=== PATIENT | female | born 1955 | race Caucasian/White ===

== ENCOUNTER 2019-12-03 08:08 | Outpatient (CLI) | payer MEDICARE, SELFPAY ==
--- NOTE | ~2019-12-03 | MM_ITS ---
EXAMINATION: MM screening [facility] BI w sri HISTORY: Screening mammogram TECHNIQUE: Craniocaudal and mediolateral oblique 3-D tomosynthesis images were obtained and synthetic 2-D images were generated. CAD analysis was submitted and interpreted. COMPARISON: 11/29/2018, 10/02/2017, 09/30/2016 bilateral digital screening mammogram examinations BREAST PARENCHYMAL COMPOSITION: There are scattered areas of fibroglandular density. FINDINGS: Stable mild fibroglandular asymmetry and scattered benign calcifications. There is no evide nce of suspicious mass, calcification, or architectural distortion to suggest malignancy in either br east. There has been no suspicious interval change. IMPRESSION: 1. No mammographic evidence of malignancy. 2. Recommend routine screening mammography in one year. BI-RADS Category 2: Benign finding(s). Reviewed, dictated and finalized at location A. MANAGEMENT SPECIALIST
== END 2019-12-03 08:09 | disposition home or self-care (01) ==
LOC: ANHIMG 08:18
PROVIDERS: PCP Family Medicine; Visit Provider Family Medicine
DX: Z12.31 Encounter for screening mammogram for malignant neoplasm of breast (principal)
CPT/HCPCS: 77063; 77067

== ENCOUNTER → 2019-12-09 08:21 | Outpatient (REF) | payer MEDICARE, SELFPAY | LOC: ANHLAB 08:21 | PROVIDERS: PCP Family Medicine; Visit Provider Nurse Practitioner | DX: C44.519 Basal cell carcinoma of skin of other part of trunk (principal) | CPT/HCPCS: 88304; 88305; 88331 ==

== ENCOUNTER 2020-01-22 07:56 | Outpatient (CLI) | payer MEDICARE, SELFPAY ==
--- NOTE | ~2020-01-22 | DEXA_ITS ---
Bone Density Report Name: Suyapa Garcia Age: 64 Sex: Female Ethnicity: White Date of : 1955 Indication: postmenopausal; height loss; prior fracture; Referring Provider: Mag Hobson Study: Bone densitometry was performed. Exam Date: January 22, 2020 Accession number: [id number] Bone Density: Region BMD T-score Z-score Classification AP Spine (L1-L4) 1.269 2.0 3.9 Normal World Health Organization criteria for BMD impression classify patients as: Normal (T-score at or above -1.0), Osteopenia (T-score between -1.0 and -2.5), or Osteoporosis (T-score at or below -2.5). Previous Exams: Region Exam Age BMD T-score BMD Change BMD Change Date g/cm2 vs Baseline vs Previous AP Spine(L1-L4) 01/22/2020 64 1.269 2.0 0.065(5.4%)# 0.071(5.9%)# 10/12/2012 57 1.198 1.4 -0.006(-0.5%)# 0.107(9.8%)# 12/22/2008 53 1.090 0.4 -0.114(-9.4%)* 0.060(5.8%)* 03/03/2005 49 1.031 -0.1 -0.173(-14.4%) -0.173(-14.4%) 04/05/2002 46 1.204 1.4 *Denotes significance at 95% confidence level, LSC for AP Spine = 0.022 g/cm2 Clinical Information Provided by Patient: Has had a low trauma fracture Has used the following medications: Vitamin D, Calcium Patient maximum height was 67 Menopause Age: 48 Onset of menses at age 10 Number of children 2 Impression: The patient has normal bone mass. The patient has risk factors, including: previous fracture. No significant bone loss was observed. Discussion: LOW RISK OF FRACTURE; BONE DENSITY IS WELL ABOVE THE MINIMUM DESIRABLE LEVEL AND ABOVE AVERAGE FOR AGE AND SEX AT ALL SKELETAL SITES TESTED. This person's bone density is above expected limits for age and sex. This is rarely clinically significant, but should be pursued if there are significant musculoskeletal complaints. The patient should follow a healthful lifestyle (good nutrition with adequate calcium and vitamin D, and appropriate weight-bearing exercise). Follow-Up: Consider repeating this study in 5 years or sooner if there is some new clinical indication. Reported by: MIGUEL on 01/22/2020 8:49:00 AM. Reviewed, dictated and finalized at location Nya RUCKER
== END 2020-01-22 07:57 | disposition home or self-care (01) ==
PROVIDERS: PCP Family Medicine; Visit Provider Physician Assistant
DX: Z78.0 Asymptomatic menopausal state (principal)
CPT/HCPCS: 77080

== ENCOUNTER 2020-08-06 14:15 | Emergency (ER) | payer MEDICARE, SELFPAY ==
[2020-08-06] VITALS (13 sets, daily range): BP systolic 147–185; BP diastolic 56–69; PULSE 62–78; RESP 13–22; TEMP 36.7; O2SAT 99–100
--- NOTE | ~2020-08-06 | XR_ITS ---
EXAMINATION: XR chest 2V DATE: 08/06/2020 14:56 INDICATION: Chest pain. TECHNIQUE: Frontal and lateral views of the chest were obtained. COMPARISON: None. FINDINGS: There is mild scarring at the lung apices. No pleural effusion or pneumothorax. The heart s ize is normal. There is a 4.8 cm sclerotic lesion in proximal right humerus in a pattern of chondroid matrix. IMPRESSION: 1. Mild scarring at the lung apices. 2. Sclerotic lesion in proximal right humerus. In the absence of known malignancy, this finding is li chilo an enchondroma or osteonecrosis. Reviewed, dictated and finalized at location A. IMPRESSION: 1. Mild scarring at the lung apices. 2. Sclerotic lesion in proximal right humerus. In the absence of known malignan cy, this finding is likely an enchondroma or osteonecrosis.
--- NOTE | 2020-08-06 14:18 | ECG_ITS ---
Measurements Intervals [place] Rate: 79 P: 63 DE: 158 QRS: 38 QRSD: 92 T: 71 QT: 371 QTc: 426 Interpretive Statements SINUS RHYTHM BASELINE ARTIFACT- I, III NORMAL ECG Electronically Signed On 08-06-2020 16:49:56 CDT by Jose Garcia D.O.
--- NOTE | 2020-08-06 14:51 | ED.CHESTPAIN ---
HPI - Chest Pain General Chief Complaint: Chest Pain Stated Complaint: CP Time Seen by Provider: 08/06/20 14:28 Source: RN notes reviewed History of Present Illness HPI narrative: Patient presents emergency department from home for chest pain. Patient states pain is located the midsternal chest and does not radiate. States the pain is worse with standing up and better with laying down. The pain is described as sharp and stabbing and does not radiate. She states she did have some congestion this morning with coughing. Denies any fevers or chills shortness of breath abdominal pain nausea vomiting or any other symptoms. The patient states she did take 6 81 mg aspirins and 3 324 mg aspirins since 1030 this morning for the pain. Patient states she was at the gym yesterday and was doing rows Related Data Home Medications Medication Instructions Recorded Confirmed calcium carbonate 500 mg (1,250 1 tablet PO DAILY 11/11/19 mg)-vitamin D3 125 unit tablet pseudoephedrine HCl 30 mg tablet 30 mg PO DAILY tablet 11/11/19 Allergies Allergy/AdvReac Type Severity Reaction Status Date / Time No Known Allergies Allergy Mild Verified 08/06/20 14:19 Review of Systems Review of Systems: Narrative: Gen.: Denies fevers or chills ENT: Denies congestion Respiratory: Denies shortness of breath or cough CV: Reports chest pain GI: Denies abdominal pain nausea, emesis or diarrhea denies burning, urgency, frequency or hematuria Musculoskeletal: Denies back pain or muscle pain Neuro: Denies numbness, tingling, weakness or focal weakness Skin: Denies rash Except as documented, all other systems reviewed and negative FOR[facility]LY [facility] Past Medical History Medical History Basal cell carcinoma (BCC) of upper back Colon cancer screening (01/01/19) Negative Cologuard test History of lipoma Social History Social History Smoking status: Never smoker Tobacco type: cigarettes Second hand tobacco smoke exposure: No Alcohol intake: current Gender identity (if verbalized by the patient): Female Exam Narrative: Exam Narrative: APPEARANCE: No acute distress, nontoxic, resting in bed EYES: EOMI HEENT: Normocephalic, atraumatic, OMM RESPIRATORY: No respiratory distress Clear to auscultation bilaterally with no rhonchi wheezing or rales. CARDIOVASCULAR: Regular rate and rhythm without murmurs rubs or gallops. Chest: Tender palpation over the anterior midsternal chest wall just to the right of the sternum and ribs 6 through 8 pain increased with deep inspiration and fly motion and rotation of the torso, point tenderness present ABDOMINAL: Soft, nontender, nondistended, no rebound or guarding MUSCULOSKELETAl: Moves all extremities. No clubbing, cyanosis or edema. NEURO: Awake and alert. Following commands, speech normal, no focal deficits SKIN:: Warm, dry. No rashes lesions or abrasions PSYCHIATRIC: Normal affect/mood, Course Course Emergency Course: Patient states pain is resolved with Toradol Discussed with Dr. nelson presentation work-up. At this time with the need troponins recommends discharge and follow-up as an outpatient Discussed with patient results of workup and diagnosis. Discussed need for follow-up with primary care, proper use of medication, and reasons to return to the emergency department. Patient understands and agrees to current treatment plan Vital Signs Vital signs: Vital Signs Temperature 98.1 F 08/06/20 14:20 Pulse Rate 78 08/06/20 14:20 Respiratory Rate 17 08/06/20 14:20 Blood Pressure 174/56 H 08/06/20 14:20 Pulse Oximetry 100 08/06/20 14:20 Temperature 98.1 F 08/06/20 14:20 Pulse Rate 62 08/06/20 16:46 Respiratory Rate 16 08/06/20 16:46 Blood Pressure 147/58 H 08/06/20 15:38 Pulse Oximetry 99 08/06/20 16:46 MDM - Chest Pain MDM Narrative Medical decision making narrati
[2020-08-06 14:52] LABS: Basophils Absolute Auto 0.1 K/mm3 (0.0-0.1); Basophils Percent Auto 0.5 % (0.2-1.2); Eosinophils Absolute Auto 0.3 K/mm3 (0-0.3); Eosinophils Percent Auto 3.3 % (0-4.4); Hematocrit 40.9 % (37.0-47.0); Hemoglobin 13.8 g/dL (12.0-15.0); Immature Granulocyte Absolute 0.04 K/mm3 (0.00-0.031); Immature Granulocyte Percent A 0.4 % (0-0.5); Lymphocytes Absolute Auto 3.05 K/mm3 (0.9-3.2); Lymphocytes Percent Auto 30.6 % (18.3-44.2); Mean Corpuscular HGB Conc 33.7 g/dl (32-36); Mean Corpuscular Volume 91.9 fl (80-100); Mean Platelet Volume 9.1 fl (7.4-10.4); Monocytes Absolute Auto 0.6 K/mm3 (0.1-0.6); Monocytes Percent Auto 5.5 % (2.6-8.5); Neutrophils Absolute Auto 5.9 K/mm3 (1.3-6.7); Neutrophils Percent Auto 59.7 % (45.5-73.1); Platelet Count Result 324 k/mm3 (150-375); Red Blood Count 4.45 M/mm3 (4.2-5.4); Red Cell Distribution Width 13.4 % (11.5-14.5)
[2020-08-06 15:05] LABS: Anion Gap 6 mmol/L (8-16); Blood Urea Nitrogen 15 mg/dL (7-17); Carbon Dioxide 28 mmol/L (22-30); Chloride 105 mmol/L (98-107); Estimated CRCL calculation 63 ml/min; Estimated Glomerular Filt Rate > 60; Glucose 108 mg/dL (65-105); Potassium 4.1 mmol/L (3.4-5.0); Sodium 139 mmol/L (137-145)
[2020-08-06 15:07] LABS: INR 0.9; Prothrombin Time 11.8 Seconds (11.1-14.7)
[2020-08-06 15:08] LABS: Partial Thromboplastin Time 27.9 SECONDS (22.3-36.8)
[2020-08-06 15:09] LABS: Salicylate 8.3 mg/dL (2-20)
[2020-08-06 15:17] LABS: Troponin I < 0.012 ng/mL (0.000-0.034)
[2020-08-06] MEDS: KETOROLAC 30 MG/ML VIAL (*BKC) IV PUSH (15:41)
[2020-08-06 16:12] LABS: Alanine Aminotransferase 13 U/L (4-35); Albumin Level 3.9 g/dL (3.5-5.1); Alkaline Phosphatase 92 U/L (38-126); Aspartate Amino Transferase 24 U/L (14-36); Bilirubin,Total 0.3 mg/dL (0.2-1.3); Lipase 93 U/L (23-300)
[2020-08-06 17:54] LABS: Troponin I < 0.012 ng/mL (0.000-0.034)
== END 2020-08-06 18:34 | disposition home or self-care (01) ==
PROVIDERS: Emergency Provider Emergency Medicine; PCP Family Medicine
DX: R07.89 Other chest pain (principal); Z85.828 Personal history of other malignant neoplasm of skin; M89.9 Disorder of bone, unspecified; E03.9 Hypothyroidism, unspecified; E78.00 Pure hypercholesterolemia, unspecified; I10 Essential (primary) hypertension; Z79.899 Other long term (current) drug therapy
CPT/HCPCS: 36415; 71046; 80048; 80076; 80307; 83690; 84484; 85025; 85610; 85730; 93005; 96374; 99284; J1885

== ENCOUNTER 2020-12-24 08:40 | Outpatient (CLI) | payer MEDICARE, SELFPAY ==
--- NOTE | ~2020-12-24 | MM_ITS ---
EXAMINATION: MM screening [facility] BI w sri HISTORY: Screening TECHNIQUE: Craniocaudal and mediolateral oblique 3-D tomosynthesis images were obtained and synthetic 2-D images were generated. CAD analysis was submitted and interpreted. COMPARISON: Comparison to multiple prior studies sequentially, with oldest reviewed study dated 09/06. BREAST PARENCHYMAL COMPOSITION: There are scattered areas of fibroglandular density. FINDINGS: There is no evidence of suspicious mass, calcification, or architectural distortion to sugg est malignancy in either breast. There has been no suspicious interval change. IMPRESSION: 1. No mammographic evidence of malignancy. 2. Recommend routine screening mammography in one year. BI-RADS Category 1: Negative Reviewed, dictated and finalized at location A. 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
== END 2020-12-24 08:41 | disposition home or self-care (01) ==
PROVIDERS: PCP Family Medicine; Visit Provider Family Medicine
DX: Z12.31 Encounter for screening mammogram for malignant neoplasm of breast (principal)
CPT/HCPCS: 77063; 77067

== ENCOUNTER 2022-02-11 07:58 | Outpatient (CLI) | payer MEDICARE, SELFPAY ==
--- NOTE | ~2022-02-11 | MM_ITS ---
EXAMINATION: MM screening [facility] BI w sri HISTORY: Screening TECHNIQUE: Craniocaudal and mediolateral oblique 3-D tomosynthesis images were obtained and synthetic 2-D images were generated. CAD analysis was submitted and interpreted. COMPARISON: Comparison to multiple prior studies sequentially, with oldest reviewed study dated 09/06. BREAST PARENCHYMAL COMPOSITION: There are scattered areas of fibroglandular density. FINDINGS: There is no evidence of suspicious mass, calcification, or architectural distortion to sugg est malignancy in either breast. There has been no suspicious interval change. IMPRESSION: 1. No mammographic evidence of malignancy. 2. Recommend routine screening mammography in one year. BI-RADS Category 1: Negative Reviewed, dictated and finalized at location A.
== END 2022-02-11 07:59 | disposition home or self-care (01) ==
LOC: ANHIMG 07:59
PROVIDERS: PCP Family Medicine; Visit Provider Family Medicine
DX: Z12.31 Encounter for screening mammogram for malignant neoplasm of breast (principal)
CPT/HCPCS: 77063; 77067

== ENCOUNTER → 2022-07-01 13:39 | Outpatient (CLI) | payer MEDICARE, SELFPAY ==
--- NOTE | ~2022-07-01 | US_ITS ---
EXAMINATION: US venous doppler LE RT DATE: 07/01/2022 14:10 INDICATION: Right lower limb swelling TECHNIQUE: Grayscale ultrasound images without and with compression and Doppler ultrasound images of the right lower extremity veins were obtained. COMPARISON: None. FINDINGS: The visualized portions of right common femoral vein, profunda (deep) femoral vein, femoral vein, pop liteal vein, peroneal trunk, posterior tibial veins, peroneal veins, gastrocnemius vein and greater s aphenous vein outflow are patent. IMPRESSION: 1. No deep venous thrombosis in the right lower limb. Reviewed, dictated and finalized at location A.
--- NOTE | ~2022-07-01 | XR_ITS ---
EXAMINATION: XR ankle RT min 3V DATE: 07/01/2022 13:54 INDICATION: Right ankle joint effusion. TECHNIQUE: 4 views of right ankle were obtained. COMPARISON: None. FINDINGS: Bone alignment is normal. There is a small calcification distal to medial malleolus. There is moderate midfoot osteoarthritis. There are enthesophytes at the posterior and plantar aspects of c alcaneal tuberosity. Ankle soft tissue swelling is noted. IMPRESSION: 1. Small calcification distal to medial malleolus, which may be an acute avulsion fracture or a chron ic finding from old injury. Reviewed, dictated and finalized at location A. IMPRESSION: 1. Small calcification distal to medial malleolus, which may be an acute avulsi on fracture or a chronic finding from old injury.
== END ==
PROVIDERS: PCP Family Medicine; Visit Provider Family Medicine
DX: M25.471 Effusion, right ankle (principal); M79.89 Other specified soft tissue disorders
CPT/HCPCS: 73610; 93971

== ENCOUNTER → 2023-02-20 11:28 | Outpatient (CLI) | payer MEDICARE, SELFPAY ==
--- NOTE | ~2023-02-20 | XR_ITS ---
XR lumbar spine 2-3V DATE: 02/20/2023 11:47 INDICATION: Left low back pain for 4 months. No injury. TECHNIQUE: AP, lateral, coned lateral lumbosacral views COMPARISON: None FINDINGS: There is prominent thoracolumbar dextroscoliosis and severe multilevel degenerative disc di sease of the lumbar spine. The degenerative disc disease particularly severe at L1-2, L2-3, L3-4 and L5-S1. There is minimal anterolisthesis at L4-5 due to degenerative change at the apophyseal joints. No fracture or bone destruction is evident. The lumbar pedicles appear intact. Sacroiliac joints are normal. Status post bilateral total hip arthroplasty. There is extensive calcification of the abdominal aorta, without evidence of aneurysm IMPRESSION: Prominent thoracolumbar dextroscoliosis Severe multilevel degenerative disc disease Degenerative changes apophyseal joints with associated minimal grade 1 anterolisthesis at L4-5 Status post bilateral total hip arthroplasty Reviewed, dictated and finalized at location B. IMPRESSION: Prominent thoracolumbar dextroscoliosis Severe multilevel degenerative disc disease Degenerative changes apophyseal joints with associated minimal grade 1 anteroli sthesis at L4-5 Status post bilateral total hip arthroplasty
--- NOTE | ~2023-02-20 | XR_ITS ---
AP and lateral views of the sacrum/coccyx CLINICAL HISTORY: Pain FINDINGS: No fracture or subluxation evident. There is advanced degenerative disc narrowing at L5-S1. SI joints are intact. Bilateral hip arthroplasties are present. Soft tissues are unremarkable. IMPRESSION: No acute abnormality evident. Degenerative disc narrowing at L5-S1. Bilateral hip arthroplasties. Reviewed, dictated and finalized at [facility].
== END ==
PROVIDERS: PCP Family Medicine; Visit Provider Family Medicine
DX: M54.9 Dorsalgia, unspecified (principal); Z96.643 Presence of artificial hip joint, bilateral; M41.85 Other forms of scoliosis, thoracolumbar region; M51.36 Other intervertebral disc degeneration, lumbar region; M43.16 Spondylolisthesis, lumbar region
CPT/HCPCS: 72100; 72220

== ENCOUNTER 2023-03-28 12:09 | Outpatient (CLI) | payer MEDICARE, SELFPAY ==
--- NOTE | ~2023-03-28 | XR_ITS ---
EXAMINATION: XR knee RT min 4V DATE: 03/28/2023 12:35 INDICATION: Medial right knee pain. TECHNIQUE: 4 views of right knee were obtained. COMPARISON: None. FINDINGS: Bone alignment is normal. No fracture. There is a 5.7 cm sclerotic lesion in distal femoral metadiaphysis. There is mild tricompartmental osteoarthritis characterized by tiny marginal osteophy meek. No joint space narrowing. No knee joint effusion. IMPRESSION: 1. Mild right knee osteoarthritis. 2. 5.7 cm sclerotic lesion in distal femoral metadiaphysis. In the absence of known malignancy, this finding is most likely an enchondroma or osteonecrosis. Reviewed, dictated and finalized at location A. IMPRESSION: 1. Mild right knee osteoarthritis. 2. 5.7 cm sclerotic lesion in distal femoral metadiaphysis. In the absence of k nown malignancy, this finding is most likely an enchondroma or osteonecrosis.
== END 2023-03-28 12:10 | disposition home or self-care (01) ==
PROVIDERS: PCP Family Medicine; Visit Provider Family Medicine
DX: M17.11 Unilateral primary osteoarthritis, right knee (principal)
CPT/HCPCS: 73564

== ENCOUNTER 2023-08-01 12:30 | Outpatient (RCR) | payer MEDICARE, SELFPAY ==
--- NOTE | 2023-07-04 11:13 | OPREHPOC ---
Outpatient Therapy Plan of Care This is a Multidisciplinary Plan of Care that may contain components documented by all disciplines (PT, OT, and ST.) PT Problem 1 PT Problem #1 Knowledge Deficit PT Goal 1 Goal Independent with home hip strengthening exercise Target Visit 8 PT Problem 2 PT Problem #2 Impaired Gait PT Goal 1 Goal Demonstrate even stride length bilaterally with reduction in compensated Trendelenburg Target Visit 8 PT Problem 3 PT Problem #3 Impaired Balance PT Goal 1 Goal Demonstrate 4 point improvement in Tinetti score indicating reduced fall risk Target Visit 8 PT Goal 2 Goal Patient will demonstrate ability to maintain balance on uneven surface with eyes closed for 30 seconds indicating improved vestibular stability Target Visit 8 PT Problem 4 PT Problem #4 Impaired Strength PT Goal 1 Goal Improve raphael hip flexion strength to 4+/5 to improve foot clearence Target Visit 8 PT Goal 2 Goal Improve raphael hip abduction strength to 4/5 to improve lateral stability with gait and ADLs Target Visit 8
--- NOTE | 2023-07-04 11:13 | PTOPEVAL1 ---
Assessment and note entered by Leo Villanueva, PT Evaluation Information Assessment Status Evaluation Diagnosis Gait and Mobility Abnormality (R26.89) Onset 01/05/2020 Subjective Information Reports that since she became more inactive during cov she has noticed decreased balance ability. She has been having R knee pain and gait deviations. She had raphael ZACKERY in 2017. Has a lot of difficulty going up and down stairs and has a fear of falling when doing majority of her home activity. She has steps in her house but has handrails. She has history of one fall 2 years ago but none since. Has occasional back pain but not typically limiting. Does not feel that pain is limiting mobility at this time. Reported Pain Level Pain Score 2: Self Report Assessment PT Clinical Summary Patient demonstrates deficits in hip strength and vestibular control. She did not rate poorly on Tinetti, however her ability to maintain balance on uneven surfaces and with eyes closed reflects an underlying vestibular deficit. Her hip weakness is reflected in her gait pattern and she has notable compensations affecting her overall mobility. Will benefit from skilled therapy to address these deficits. Plan of Care Interventions Aquatic Therapy,Electrical Stimulation,Manual Therapy,Neuro Re-education,Therapeutic Activities, Therapeutic Exercise PT Services Indicated Yes Treatment Frequency and 2x/week for 4 weeks Duration These treatments will address the objective and functional deficits as defined above. The patient will be advanced safely and appropriately in order for the patient to progress towards his/her prior level of function. Additional exercises will be introduced and as well as a comprehensive home exercise program upon discharge, if needed, ?to ensure carryover of functional gains achieved in the clinic. This treatment plan has been reviewed and agreement upon by the patient.
--- NOTE | 2023-08-01 13:19 | OPREHPOC ---
Outpatient Therapy Plan of Care This is a Multidisciplinary Plan of Care that may contain components documented by all disciplines (PT, OT, and ST.) PT Problem 1 PT Problem #1 Knowledge Deficit PT Goal 1 Goal Independent with home hip strengthening exercise Target Visit 8 Progress Met PT Problem 2 PT Problem #2 Impaired Gait PT Goal 1 Goal Demonstrate even stride length bilaterally with reduction in compensated Trendelenburg Target Visit 8 Progress Met PT Problem 3 PT Problem #3 Impaired Balance PT Goal 1 Goal Demonstrate 4 point improvement in Tinetti score indicating reduced fall risk Target Visit 8 Progress Met PT Goal 2 Goal Patient will demonstrate ability to maintain balance on uneven surface with eyes closed for 30 seconds indicating improved vestibular stability Target Visit 8 Progress Met PT Problem 4 PT Problem #4 Impaired Strength PT Goal 1 Goal Improve raphael hip flexion strength to 4+/5 to improve foot clearance Target Visit 8 Progress Met PT Goal 2 Goal Improve raphael hip abduction strength to 4/5 to improve lateral stability with gait and ADLs Target Visit 8 Progress Met
--- NOTE | 2023-08-01 13:20 | PTOPDC ---
Assessment and note entered by Leo Villanueva, PT Discharge Information Assessment Status Discharge Diagnosis Gait and Mobility Abnormality (R26.89) Onset 01/05/2020 Subjective Information Patient reports that she does feel like she is doing as lot better since starting therapy. She does however feel that something is still off. She feels she is suitablefor discharge at this time. Reported Pain Level Pain Score 2: Self Report Assessment PT Clinical Summary Patient met all current goals for therapy and is suitable for D/C to [facility] at this time. Plan of Care PT Services Indicated No
== END 2023-08-01 15:06 | disposition home or self-care (01) ==
LOC: ANHGOSHPT 12:30
PROVIDERS: PCP Family Medicine; Visit Provider Nurse Practitioner
DX: R26.89 Other abnormalities of gait and mobility (principal)
CPT/HCPCS: 97110; 97112; 97140; 97161; 97530

== ENCOUNTER 2023-10-13 09:04 | Outpatient (CLI) | payer MEDICARE, SELFPAY ==
--- NOTE | ~2023-10-13 | MM_ITS ---
EXAMINATION: MM screening [facility] BI w sri HISTORY: Screening mammogram TECHNIQUE: Craniocaudal and mediolateral oblique 3-D tomosynthesis images were obtained and synthetic 2-D images were generated. CAD analysis was submitted and interpreted. COMPARISON: 02/11/2022, 12/24/2020, 12/03/2019 BREAST PARENCHYMAL COMPOSITION: There are scattered areas of fibroglandular density. FINDINGS: No suspicious mass, calcification, or architectural distortion are identified in either janna ast to suggest malignancy. There has been no suspicious interval change. IMPRESSION: 1. No mammographic evidence of malignancy. 2. Recommend routine screening mammography in one year. BI-RADS Category 1: Negative Reviewed, dictated and finalized at location A. [place] STOCKER
== END 2023-10-13 09:05 | disposition home or self-care (01) ==
LOC: ANHIMG 09:07
PROVIDERS: PCP Family Medicine; Visit Provider Nurse Practitioner
DX: Z12.31 Encounter for screening mammogram for malignant neoplasm of breast (principal)
CPT/HCPCS: 77063; 77067

== ENCOUNTER 2023-10-23 09:00 | Outpatient (CLI) | payer MEDICARE, SELFPAY ==
--- NOTE | ~2023-10-23 | XR_ITS ---
Right Knee Technique: AP, lateral, and sunrise views were obtained. Clinical History: Sclerotic lesion COMPARISON: 03/28/2023 Findings: No fracture or dislocation is seen. There is stable sclerotic lesion in the distal femoral metadiaphyseal region, suggestive of chondroid lesion.. Minimal degenerative spurring noted. Soft tis sues are unremarkable. No joint effusion is seen. Impression: Stable chondroid lesion in the distal femur, most likely enchondroma or bone infarct. Low-grade chond rosarcoma cannot be completely excluded radiographically, but no aggressive imaging features are iden tified. Reviewed, dictated and finalized at location . DEVELOPER Impression: Stable chondroid lesion in the distal femur, most likely enchondroma or bone in farct. Low-grade chondrosarcoma cannot be completely excluded radiographically, but no aggressive imaging features are identified.
== END 2023-10-23 09:01 | disposition home or self-care (01) ==
PROVIDERS: PCP Family Medicine; Visit Provider Nurse Practitioner
DX: M89.9 Disorder of bone, unspecified (principal)
CPT/HCPCS: 73562

== ENCOUNTER → 2023-11-09 08:10 | Outpatient (CLI) | payer MEDICARE, SELFPAY ==
--- NOTE | ~2023-11-09 | US_ITS ---
EXAMINATION: US aorta DATE: 11/09/2023 08:27 INDICATION: Atherosclerotic aorta. Hypertension, diabetes and prior smoking. TECHNIQUE: Grayscale, color Doppler, and pulsed Doppler images of the aorta and common iliac arteries were obtained. COMPARISON: None. FINDINGS: The proximal aorta measures 2.2 cm. The mid aorta measures 1.7 cm. The distal aorta measures 1.7 cm. The right common iliac artery measures 1.0 cm. The left common iliac artery measures 1.0 cm. IMPRESSION: 1. Normal caliber abdominal aorta. Reviewed, dictated and finalized at location A. 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
== END ==
PROVIDERS: PCP Family Medicine; Visit Provider Nurse Practitioner
DX: I70.0 Atherosclerosis of aorta (principal)
CPT/HCPCS: 76775

== ENCOUNTER 2024-04-04 10:34 | Outpatient (CLI) | payer MEDICARE, SELFPAY ==
[2024-04-04 13:20] LABS: Alanine Aminotransferase 15 U/L (6-35); Albumin Level 3.7 g/dL (3.5-5.1); Alkaline Phosphatase 58 U/L (38-126); Anion Gap 4 mmol/L (4-12); Aspartate Amino Transferase 32 U/L (14-36); Bilirubin,Total 0.7 mg/dL (0.2-1.3); Blood Urea Nitrogen 17 mg/dL (7-17); Calcium 8.6 mg/dL (8.4-10.2); Carbon Dioxide 23 mmol/L (22-30); Chloride 109 mmol/L (98-107); Estimated Glomerular Filt Rate 49; Glucose 124 mg/dL (65-110); Magnesium 2.4 mg/dL (1.6-2.3); Potassium 4.1 mmol/L (3.4-5.0); Sodium 136 mmol/L (137-145)
== END 2024-04-04 10:35 | disposition home or self-care (01) ==
LOC: ANHGOSHLAB 10:36
PROVIDERS: PCP Family Medicine; Visit Provider Family Medicine
DX: E88.810 Metabolic syndrome (principal); I10 Essential (primary) hypertension; N18.9 Chronic kidney disease, unspecified
CPT/HCPCS: 36415; 80053; 83735

== ENCOUNTER 2024-04-05 10:49 | Outpatient (CLI) | payer MEDICARE, SELFPAY ==
--- NOTE | ~2024-04-05 | US_ITS ---
Duplex Sonography of the bilateral lower extremities: Indication: Swelling Sagittal and transverse B-mode images as well as color-flow imaging were performed on the right and l eft femoral and popliteal veins. B-mode examination was done without and with compression in the tra nsverse plane. There is good visualization of the bilateral common femoral, proximal profunda femora l, superficial femoral, greater saphenous, and popliteal veins. Normal flow was seen on color-flow im aging. Normal compressibility was demonstrated. There is thrombosis involving portions of the bilate ral peroneal veins in the calves. Posterior tibial and gastrocnemius veins bilaterally are patent. Impression: Thrombosis involving the bilateral peroneal veins. Reviewed, dictated and finalized at location M. Impression: Thrombosis involving the bilateral peroneal veins.
== END 2024-04-05 10:50 ==
LOC: GOSHIMG 10:50
PROVIDERS: PCP Family Medicine; Visit Provider Family Medicine
DX: I82.453 Acute embolism and thrombosis of peroneal vein, bilateral (principal); R60.0 Localized edema
CPT/HCPCS: 93970

== ENCOUNTER 2024-10-17 15:10 | Outpatient (CLI) | payer MEDICARE, SELFPAY ==
--- NOTE | ~2024-10-17 | US_ITS ---
EXAMINATION: US venous doppler [facility] DATE: 10/17/2024 15:50 INDICATION: Other specified soft tissue disorders. TECHNIQUE: Grayscale ultrasound images without and with compression and Doppler ultrasound images of the bilateral lower extremity veins were obtained. COMPARISON: Ultrasound 04/05/2024 FINDINGS: The visualized portions of right common femoral vein, profunda (deep) femoral vein, femoral vein, pop liteal vein, peroneal veins, posterior tibial veins, and greater saphenous vein outflow are patent. The visualized portions of left common femoral vein, profunda femoral vein, femoral vein, popliteal v ein, peroneal veins, posterior tibial veins, and greater saphenous vein outflow are patent. IMPRESSION: 1. No deep venous thrombosis. Reviewed, dictated and finalized at location A. MANAGER
== END 2024-10-17 15:11 | disposition home or self-care (01) ==
PROVIDERS: PCP Family Medicine; Visit Provider Family Medicine
DX: M79.89 Other specified soft tissue disorders (principal); Z86.718 Personal history of other venous thrombosis and embolism
CPT/HCPCS: 93970

== ENCOUNTER 2024-12-12 11:04 | Outpatient (CLI) | payer MEDICARE, SELFPAY ==
--- NOTE | ~2024-12-12 | US_ITS ---
Renal-Bladder ultrasound Clinical History: Hypertension Technique: Real-time sonographic imaging of the kidneys and urinary bladder was performed. Findings: The right kidney measures 6.3 cm in length and the left kidney measures 9.4 cm. There is no hydronephrosis or renal calculus identified. Renal cortical echogenicity is within normal limits. No renal mass lesion is identified. The urinary bladder is with partially distended, somewhat poorly evaluated. Impression: No hydronephrosis. Left kidney measures significantly larger than the right. Reviewed, dictated and finalized at location . CONDENSER Impression: No hydronephrosis. Left kidney measures significantly larger than the right.
== END 2024-12-12 11:05 | disposition home or self-care (01) ==
PROVIDERS: PCP Family Medicine; Visit Provider Nurse Practitioner
DX: I10 Essential (primary) hypertension (principal)
CPT/HCPCS: 76775

== ENCOUNTER 2025-02-21 07:11 | Outpatient (CLI) | payer MEDICARE, SELFPAY ==
--- NOTE | ~2025-02-21 | US_ITS ---
EXAMINATION: US retroperitoneal duplex ltd DATE: 02/21/2025 08:15 INDICATION: Essential (primary) hypertension TECHNIQUE: Multiple grayscale, color Doppler, and pulsed Doppler images of the kidneys and renal darien eamon were obtained. COMPARISON: None. FINDINGS: There is normal renal contour and echogenicity bilaterally. The right kidney measures 8.5 x 3.7 x 4.0 cm and the left 11.0 x 5.9 x 5.3 cm. There is no hydronephrosis. The aorta peak systolic velocity is 159 cm/s. The right renal artery peak systolic velocity is 85 cm/s in the proximal segment, 78 cm/ s in the mid segment, and 60 cm/s in the distal segment. The left renal artery peak systolic velocity is 48 cm/s in the proximal segment, 45 cm/s in the mid segment, and 68 cm/s in the distal segment. IMPRESSION: 1. No Doppler evidence of renal artery stenosis. Reviewed, dictated and finalized at location A.
--- OUTSIDE RECORDS SUMMARY | 2025-02-21 07:15 | XMS_ITS | Encounter Summary ---
Author Organization [facility] Address 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
--- OUTSIDE RECORDS SUMMARY | 2025-02-21 07:15 | XMS_ITS | Clinical Summary ---
Author Organization [facility] Address [address] [place] [address] Care Team Providers Care Engineer Gas Pumping Station Name Role Phone Melody Joshi DO Primary Care Provider +1- [phone] Allergies Active Allergy Reactions Criticality Noted Date Comments Lisinopril Anaphylaxis,Angioedema High 03/12/2024 Medications EPINEPHrine (EpiPen) 0.3 mg/0.3 mL Auto-Injector Inject 0.3 mg by subcutaneous injection one time only. 4 Active metoprolol tartrate (LOPRESSOR) 25 mg tablet Take 12.5 mg by mouth daily. Active levothyroxine 25 mcg tablet Take 25 mcg by mouth daily. 4 Active apixaban (Eliquis) 5 mg tablet Take 1 Tablet (5 mg) by mouth 2 times daily. 60 Tablet 4 Active Active Problems No known active problems Encounters Date Type Department Care Team Description 01/22/2025 External Device Data [facility] ABSTRACTION Provider, Abstract 01/11/2025 External Device Data [facility] ABSTRACTION Provider, Abstract 01/10/2025 External Device Data [facility] ABSTRACTION Provider, Abstract 01/07/2025 External Device Data [facility] ABSTRACTION Provider, Abstract 12/24/2024 External Device Data [facility] ABSTRACTION Provider, Abstract 11/28/2024 External Device Data [facility] ABSTRACTION Provider, Abstract 11/26/2024 External Device Data [facility] ABSTRACTION Provider, Abstract from Last 3 Months Family History Medical History Relation Name Comments No Known Problems Child 1 No Known Problems Child 2 Heart Disease Father No Known Problems Mother No Known Problems Sister 1 No Known Problems Sister 2 Relation Name Status Comments Child 1 Alive Child 2 Alive Father Mother Sister 1 Sister 2 Alive Social History Tobacco Use Types Packs/Day Years Used Date Smoking Tobacco: Every Day Cigarettes 1 3.8 Started: 05/06/2021 Alcohol Use Standard Drinks/Week Comments Yes 0 (1 standard drink = 0.6 oz pur e alcohol) socially Comments Unknown Sex and Gender Information Value Date Recorded Sex Assigned at Not on file 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 Gender Identity Not on file Sexual Orientation Not on file Last Filed Vital Signs Vital Sign Reading Time Taken Comments Blood Pressure 195/78 05/06/2024 10:19 AM CDT Pulse 54 05/06/2024 10:19 AM CDT Temperature 36.7 C (98 F) 05/06/2024 10:17 AM CDT Respiratory Rate 16 05/06/2024 10:17 AM CDT Oxygen Saturation 95% 05/06/2024 10:17 AM CDT Inhaled Oxygen Concentration - - Weight 79.8 kg (176 lb) 05/06/2024 10:17 AM CDT Height 167.6 cm (5' 6 ) 05/06/2024 10:17 AM CDT Body Mass Index 28.41 05/06/2024 10:17 AM CDT Plan of Treatment Health Maintenance Due Date Last Done Comments DTAP/TDAP/TD VACCINES (1 - Tdap) 1972 PNEUMOCOCCAL VACCINE 50+ YEARS (1 of 2 - PCV) 06/26/19 72 BREAST CANCER SCREENING 1993 COLORECTAL SCREENING 1998 Colorectal Cancer Screening 1998 FIT-DNA Q 3 years 1998 FIT/FOBT Q 1 year 1998 Flex Sig/CT Colonography Q 5 years 1998 ZOSTER VACCINE (1 of 2) 2003 OSTEOPOROSIS SCREENING 2018 INFLUENZA VACCINE (#1) 2024 RSV VACCINE (60+ or ) (1 - 1-dose 75+ series) 2028 Insurance [facility] [id number] Care Teams Engineer Gas Pumping Station Relationship Specialty Start Date End Date Melody Joshi DO [address] [facility] [address] [facility] [address] [place] [address] PCP - General Family Practice 04/09/24
--- OUTSIDE RECORDS SUMMARY | 2025-02-21 07:15 | XMS_ITS | Patient Health Record ---
Author Organization [facility] Address [address] [place] [address] Care Team Providers Care Apartment Rental Clerk Name Role Phone Melody Joshi Primary Care Provider UnavailTamara Johnson Unavailable [phone] ZZ-Migration, Provider Unavailable Unavailab le Allergies Allergen (clinical drug ingredient) Drug/Non Drug Allergy documented on EMR Reaction Allergy Type Onset Date Status Lisinopril angioedema Drug Allergy Activ e Results Component Value Reference Range Notes -F212 Mushroom Reviewed date:04/08/2024 02:28:54 PM Interpretation:Normal Performing Lab:[facility] [address] [id number], Phone - [phone], Director - Fabian Notes/Report: or for research. clinical purposes. These should not be regarded as investigational clearance or approval is not necessary. These tests are used for Food and Drug Administration. The FDA has determined that such [facility]. These tests have not been cleared or approved by the U.S. were developed and had performance characteristics determined by Test(s) [id number]-OhV Mushroom C171-NjB Mushroom <0.10 Class 0 kU/L Levels of Specific IgE Class Description of Class ----- < 0.10 0 Negative 0.10 - 0.31 0/I Equivocal/Low 0.32 - 0.55 I Low 0.56 - 1.40 II Moderate 1.41 - 3.90 III High 3.91 - 19.00 IV Very High 19.01 - 100.00 V Very High >100.00 Very High -Complement C4, Serum Reviewed date:04/08/2024 02:28:45 PM Interpretation:Normal Performing Lab:[facility], [address] [place] [id number], Phone - [phone], Director - [facility] Notes/Report: Complement C4, Serum 32 12-38 mg/dL -Sedimentation Rate-Westergr en Reviewed date:04/08/2024 02:28:29 PM Interpretation:Normal Performing Lab:[address] [id number], Phone - [phone], Director - [facility] Notes/Report: Sedimentation Rate-Westergren 11 0-40 mm/hr -CBC With Differential/Plate let Reviewed date:04/08/2024 02:28:21 PM Interpretation:Abnormal Performing Lab:[address] [id number], Phone - [phone], Director - [facility] Notes/Report: WBC 7.1 3.4-10.8 x10E3/uL RBC 3.60 3.77-5.28 x10E6/uL Hemoglobin 10.9 11.1-15.9 g/dL Hematocrit 33.1 34.0-46.6 % MCV 92 79-97 fL MCH 30.3 26.6-33.0 pg MCHC 32.9 31.5-35.7 g/dL RDW 13.8 11.7-15.4 % Platelets 363 150-450 x10E3/uL Neutrophils 61 Not Estab. % Lymphs 31 Not Estab. % Monocytes 5 Not Estab. % Eos 3 Not Estab. % Basos 0 Not Estab. % Neutrophils (Absolute) 4.3 1.4-7.0 x10E3/uL Lymphs (Absolute) 2.2 0.7-3.1 x10E3/uL Monocytes(Absolute) 0.4 0.1-0.9 x10E3/uL Eos (Absolute) 0.2 0.0-0.4 x10E3/uL Baso (Absolute) 0.0 0.0-0.2 x10E3/uL Immature Granulocytes 0 Not Estab. % Immature Grans (Abs) 0.0 0.0-0.1 x10E3/uL -Immunoglobulin E, Total Reviewed date:04/08/2024 02:28:01 PM Interpretation:Normal Performing Lab:[address] [id number], Phone - [phone], Director - [facility] Notes/Report: Test(s) 104756-W168-IyV Mushroom were developed and had performance characteristics determined by [facility]. These tests have not been cleared or approved by the U.S. Food and Drug Administration. The FDA has determined that such clearance or approval is not necessary. These tests are used for clinical purposes. These should not be regarded as investigational or for research. Immunoglobulin E, Total 4 6-495 IU/mL -Complement C1q, Quantitativ e Reviewed date:04/10/2024 11:59:11 AM Interpretation:Normal Performing Lab:[address] [id number], Phone - [phone], Director - [facility] Notes/Report: Complement C1q, Quantitative 13.5 10.3-20.5 mg /dL Reason For Referral No Information Medications Medication SIG (Take, Route, Frequency, Duration) Notes Start Date End Date Status EPINEPHRINE AUTO-INJECTOR 0.3 MG DIRECTED INTRAMUSCULARLY ONCE for 1 DOSE(S) *Please review for potential replacement for e-prescription and drug interaction check* 04/02/2024 Active CETIRIZINE 10 mg 1 tab(s) orally BID for 30 days 04/02/2024 Active AMLODIPINE 5 mg 1 tab(s) orally once a day Active METOPROLOL TARTRATE 25 mg 1 tab(s) orally 2 times a day for 30 day(s) 04/02/2024 Active Metoprolol Tartrate 25 MG 1 tab(s) orally 2 times a day for 30 day(s) 04/02/2024 Active LEVOTHYROXINE 50 mcg (0.05 mg) 1 tab(s) orally once a day Active Levothyroxine Sodium 50 MCG 1 tab(s) orally once a day Active PEPCID 20 mg 1 tab(s) orally 2 times a day for 30 days 04/02/2024 Active amLODIPine Besylate 5 MG 1 tab(s) orally once a day Active Cetirizine HCl 10 MG 1 tab(s) orally BID for 30 days 04/02/2024 Active Pepcid 20 MG 1 tab(s) orally 2 times a day for 30 days 04/02/2024 Active EPIPEN 2-DOMINGUEZ 0.3 mg as directed intramuscularly once for 1 dose(s) 04/02/2024 Active EpiPen 2-Dominguez 0.3 MG/0.3ML as directed intramuscularly once for 1 dose(s) 04/02/2024 Active Social History Tobacco Use: Social History Observation Description Date Details (start date - stop date) Current Smoker NA - NA Tobacco Control (Standard) Question Answer Notes Tobacco use: Current smoker Problems Problem Type SNOMED Code ICD Code Onset Dates Problem Status W/U Status Risk Notes Problem Food allergy (262346945) Allergy to other foods (Z91.018) Active confirmed Problem Allergy status to other drugs, medicaments and biological substances (Z88.8) Active confirmed Vital Signs Oximetry 99 % 04/02/2024 Blood pressure diastolic 67 mm Hg 04/02/2024 Height 66 in 04/02/2024 Blood pressure systolic 178 mm Hg 04/02/2024 Weight 180.0 lbs 04/02/2024 BMI 29.05 kg/m2 04/02/2024 Encounters Encounter Location Date Provider Diagnosis [address] [address] 04/20/2024 Provider Christina Angioneurotic edema, initial encounter T78.3XXA [address] [address] 04/02/2024 Tamara He Angioneurotic edema, initial encounter T78.3XXA ; Allergy status to other drugs, medicaments and biological substances Z88.8 and Allergy to other foods Z91.[address] [address] 04/02/2024 Tamara He [address] [address] 04/06/2024 Tamara He Assessments Encounter Date Diagnosis (ICD Code) Assessment Notes Treatment Notes Treatment Clinical Notes Section Notes 04/02/2024 Angioneurotic edema, initial encounter (ICD-10 - T78.3XXA) Labs requested from [facility]. Considerations include hereditary angioedema, idiopathic, food or KAYLEY induced angioedema. Since she has been taking lisinopril for many years, less likely the cause but needs to be avoided. We discussed that food allergies normally occur within 24 hours of eating the food. Labs ordered as above for further evaluation. C1 esterase functional assay was requested from [facility]. She does not take NSAIDS. For now, EpiPen to be available at all times. We discussed proper use of EpiPen. We also discussed Zyrtec and famotidine BID. tryptase 10.8 C1 esterase inhibitor antigen 40 04/02/2024 Allergy status to other drugs, medicaments and biological substances (ICD-10 - Z88.8) continue strict avoidance of KAYLEY inhibitors, ok to take angiotensin receptor blockers if needed. 04/20/2024 Angioneurotic edema, initial encounter (ICD-10 - T78.3XXA) 04/02/2024 Allergy to other foods (ICD-10 - Z91.018) unclear if related to mushrooms since reaction occurred over 24 hours after eating. Recommend continued avoidance. 04/02/2024 Other Plan Of Treatment No Information Insurance Providers Payer Name Payer Address Payer Phone Subscriber Number Group Number Insured Name Patient Relationship to Insured Coverage Start Date Coverage End Date [employer] Medicare [address] [address] [place] [address] [id number] MichelleSuyapa burt Self - patient is the insured 4 Medical (General) History Medical History History ICD Code Hypertension Hyperlipidemia Hypothyroidism Surgical History Surgery Date(Month/Year) bilateral hip replacement 2017 Hospitalization History Reason Date(Month/Year) [facility], [place] 03/10/2024
--- OUTSIDE RECORDS SUMMARY | 2025-02-21 07:15 | XMS_ITS | Continuity of Care Document ---
Author Organization [facility] Address [address] [place] [address] Phone Care Team Providers Care Cannery Tender Engineer Name Role Phone Dickinson OD, Kyler Unavailable Unavailable Advance Directives Directive Yes / No Effective Date File Name No Information Encounters Encounter Description Practice Location Reason(s) For Visit Diagnoses Date Provider Providers Copied on Encounter [facility], [address], [place], [place], [id number], [place] tel:[phone] [facility] No Information Aug-0 8-200 2 Dickinson OD Kyler. [address] , [address], [place], [address], [place]. tel:[phone] Family History Family Member Type Diagnosis Age [...]
--- OUTSIDE RECORDS SUMMARY | 2025-02-21 07:15 | XMS_ITS | Encounter Summary ---
Author Organization [facility] Address [address] [place] [address] Care Team Providers Care State Game Warden Name Role Phone Melody Joshi DO Primary Care Provider [phone]- [phone] Encounter Details Date Type Department Care Team (Late st Contact Info) Description 01/16/2025 Results Follow-Up [facility] Cardiology [address] [place] [address] [place] [address] [place] [address] Social History Tobacco Use Types Packs/Day Years Used Date Smoking Tobacco: Every Day Cigarettes 0.5 5.3 Started: 2019 Smokeless Tobacco: Never Comments Unknown Sex and Gender Information Value Date Recorded Sex Assigned at Not on file 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
--- OUTSIDE RECORDS SUMMARY | 2025-02-21 07:15 | XMS_ITS ---
Author Organization [facility] Address [address] [place] [address] Care Team Providers Care Securities And Real Estate Director Name Role Phone RosalindamyMelody king Primary Care Provider Tamara Osorio Unavailable [phone] REASON FOR VISIT Labwork Encounters Encounter Location Date Provider Diagnosis [facility] [address] [place] [address] 04/06/2024 Tamara He Plan Of Treatment No Information Progress Notes * Suyapa GARCIADOB:1955 (68 yo F)Acc No.[id number]:04/06/2024 Patient: Suyapa VALDEZ :1955 A ge:68 Y S ex:Female Address:[place], [address] * true * Date: Generated for Jossei nicole/Famichealg/eTransmitting on: 0 02/21/2025 07:14 AM CDT
--- OUTSIDE RECORDS SUMMARY | 2025-02-21 07:15 | XMS_ITS ---
Author Organization [facility] Address [address] [place] [address] Care Team Providers Care Steward/Stewardess Economy Class Name Role Phone RosalindamyMelody king Primary Care Provider Tamara Osorio Unavailable [phone] REASON FOR VISIT labs Encounters Encounter Location Date Provider Diagnosis [facility] [address] [place] [address] 04/02/2024 Tamara He Plan Of Treatment No Information Progress Notes * Suyapa GARCIADOB:1955 (68 yo F)Acc No.[id number]:04/02/2024 Patient: Suyapa VALDEZ :1955 A ge:68 Y S ex:Female Address:[address] [place], [address] * true * Date: Generated for Jossei ng/Famichealg/eTransmitting on: 0 02/21/2025 07:15 AM CDT
--- OUTSIDE RECORDS SUMMARY | 2025-02-21 07:16 | XMS_ITS | Clinical Summary ---
Author Organization [facility] Address [address] [place] [address] Care Team Providers Care Automotive Service Technician Name Role Phone Melody Joshi DO Primary Care Provider [phone] Allergies Active Allergy Reactions Criticality Noted Date Comments Lisinopril Anaphylaxis,Angioede Delma irving welling High 03/10/2024 Other Anaphylaxis High 03/12/2024 Chicken of the kovacs mushroom, Laetiporus spp. Medications levothyroxine (SYNTHROID, LEVOTHROID) 50 mcg tablet 08/09/2018 Active aspirin 81 mg enteric coated tablet Take 1 tablet (81 mg total) by mouth daily Active cloNIDine (CATAPRES) 0.1 mg tablet Take 1 tablet (0.1 mg total) by mouth 2 (two) times a day Active hydroCHLOROthia zide (HYDRODIURIL) 25 mg tablet Take 1 tablet (25 mg total) by mouth every morning 12/16/2024 Active hydrALAZINE (APRESOLINE) 50 mg tablet Take 2 tablets (100 mg total) by mouth 2 (two) times a day 60 tablet 11 01/13/2025 Active Active Problems Problem Noted Date Diagnosed Date Essential hypertension 01/13/2025 Chronic diastolic heart failure 01/13/2025 History of pulmonary embolism 01/13/2025 Encounters Date Type Department Care Team Description 01/16/2025 Results Follow-Up [facility] Cardiology [address] [place] [phone] Nadya Davenport MD 01/14/2025 Orders Only [facility] Cardiology [address] [facility] [address] [place] [phone] Nadya Davenport MD 01/13/2025 10:30 AM CDT Office Visit [facility] Cardiology [address] [place] [phone] Nadya Davenport MD Essential hypertension (Primary Dx); Acute embolism and thrombosis of unspecified deep veins of lower extremity, bilateral (HCC); Chronic diastolic heart failure (HCC); History of pulmonary embolism from Last 3 Months Surgical History Surgery Date Site/Laterality Comments TOTAL HIP ARTHROPLASTY 08/03/2017 Right TOTAL HIP ARTHROPLASTY 04/07/2017 Left TONSILLECTOMY TUBAL LIGATION Medical History Medical History Date Comments Hypercholesteremia Hypertension Diabetes mellitus (HCC) Arthritis Obesity Thyroid disease CHF (congestive heart failure) (HCC) Family History Medical History Relation Name Comments No Known Problems Father COPD Mother Emphysema Mother Emphysema Sister Relation Name Status Comments Father Mother Sister Social History Tobacco Use Types Packs/Day Years Used Date Smoking Tobacco: Every Day Cigarettes 0.5 5.3 Started: 2019 Smokeless Tobacco: Never Tobacco Cessation:Ready to Q uit: Not Asked; Counseling Given: Not Answered Comments Unknown Sex and Gender Information Value Date Recorded Sex Assigned at Not on file 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 Gender Identity Not on file Sexual Orientation Not on file Obstetrics History Last Filed Vital Signs Vital Sign Reading Time Taken Comments Blood Pressure 148/50 01/13/2025 10:24 AM CDT Pulse 63 01/13/2025 10:24 AM CDT Temperature - - Respiratory Rate - - Oxygen Saturation 99% 01/13/2025 10:24 AM CDT Inhaled Oxygen Concentration - - Weight 86.4 kg (190 lb 6.4 oz) 01/13/2025 10:24 AM CDT Height 167.6 cm (5' 6 ) 01/13/2025 10:24 AM CDT Body Mass Index 30.73 01/13/2025 10:24 AM CDT Plan of Treatment Health Maintenance Due Date Last Done Comments Breast Cancer Screening-Mammogram 1955 Colon Cancer Screening-Colonoscopy 1955 Depression Screening 1955 Fall Risk Assessment 1955 Hepatitis C Screening 1955 Osteoporosis Screening-Bone Density Scan 1955 Well Visit 65+ 2018 Covid-19 Vaccine (4 - 2023-2 5 season) 2024 09/10/2021, 01/19/2021, 12/29/2020 Influenza Vaccine (Season Ended) 2025 09/10/2021, 08/13/2019, 08/10/2018, Additional history exists DTaP/Tdap/Td Vaccine (3 - Td or Tdap) 12/18/2025 12/18/2015, 10/14/2005, 07/05/2000, Additional history exists Hepatitis B Screening Completed 04/22/1992 , 11/20/1991, 10/21/1991 Zoster Vaccine Completed 06/08/2018, 02/2018, 07/15/2013 Pneumococcal vaccine 65+ Completed 08/13/2019, 03/2018 Procedures Procedure Name Priority Date/Time Associated Diagnosis Comments BASIC METABOLIC PANEL Routine 01/14/2025 10:32 AM CDT POCT LIPID PANEL Routine 01/13/2025 11:5 2 AM CDT Essential hypertension from Last 3 Months Results * (ABNORMAL) Basic metabolic panel (01/14/2025 10:32 AM CDT) Glucose 131(H) 70 - 99 mg/dL [facility] - 01 BUN 29(H) 8 - 27 mg/dL [facility] - 01 Creatinine, Serum 1.40(H) 0.57 - 1.00 mg/dL [facility] - 01 eGFR 40(L) >59 mL/min/1.7 3 [facility] - 01 BUN/creat ratio 21 12 - 28 [facility] - 01 Sodium 139 134 - 144 mmol/L [facility] - 01 Potassium, sr 4.8 3.5 - 5.2 mmol/L [facility] - 01 Chloride 101 96 - 106 mmol/L [facility] - 01 CO2 21 20 - 29 mmol/L [facility] - 01 Calcium 9.7 8.7 - 10.3 mg/dL [facility] - 01 01/14/2025 10:3 2 AM CDT 01/14/2025 Narrative [facility] - 01/15/2025 1:07 AM CDT Performed at: [address] [id number] Certified Forklift Operator: Alexi Cali PhD, Phone: [phone] Nadya Davenport MD LAB BLOOD ORDERABLES Final Result [facility] - 01 * POCT lipid panel (01/13/2025 11:52 AM CDT) [facility] Cholesterol, POC 172 mg/dL Comment:GLU = 151 HDL, POC 25 mg/dL Triglycerides, POC 203 mg/dL LDL Cholesterol POC 106 mg/dL Chol/HDL Ratio, POC 4.2 Non-HDL Cholesterol, POC 147 mg/dL Cholesterol Total, POC 172 mg/dL Capillary blood 01/13/2025 1 1:52 AM CDT Nadya Davenport MD POINT OF CARE TEST O RDERABLES Final Result from Last 3 Months Insurance [facility] MEDICARE ADVANTAGE MEDICARE [facility] MEDICARE SUPPLEMENT INSURANCE [facility] MEDICARE ADVANTAGE Care Teams Automotive Service Technician Relationship Specialty Start Date End Date Melody Joshi DO PCP - General Family Medicine 12/23/21
--- OUTSIDE RECORDS SUMMARY | 2025-02-21 07:16 | XMS_ITS ---
Author Organization [facility] Address [address] [place] [address] Care Team Providers Care Elect Equip Maint Eng Name Role Phone Rosalindamychristine Melody Primary Care Provider UnavailTamara Johnson Unavailable [phone] [facility], Provider Unavailable Unavailab le Allergies Allergen (clinical drug ingredient) Drug/Non Drug Allergy documented on EMR Reaction Allergy Type Onset Date Status Lisinopril angioedema Drug Allergy Activ e REASON FOR VISIT [facility] To [facility] Conversion Encounter Medications Medication SIG (Take, Route, Frequency, Duration) Notes Start Date End Date Status Cetirizine HCl 10 MG 1 tab(s) orally BID for 30 days 04/02/2024 Active Pepcid 20 MG 1 tab(s) orally 2 times a day for 30 days 04/02/2024 Active EpiPen 2-Dominguez 0.3 MG/0.3ML as directed intramuscularly once for 1 dose(s) 04/02/2024 Active EPINEPHRINE AUTO-INJECTOR 0.3 MG DIRECTED INTRAMUSCULARLY ONCE for 1 DOSE(S) *Please review for potential replacement for e-prescription and drug interaction check* 04/02/2024 Active amLODIPine Besylate 5 MG 1 tab(s) orally once a day Active Metoprolol Tartrate 25 MG 1 tab(s) orally 2 times a day for 30 day(s) 04/02/2024 Active Levothyroxine Sodium 50 MCG 1 tab(s) orally once a day Active Encounters Encounter Location Date Provider Diagnosis [facility] [address] [place] [address] 04/20/2024 Provider [facility] Angioneurotic edema, initial encounter T78.3XXA Assessments Encounter Date Diagnosis (ICD Code) Assessment Notes Treatment Notes Treatment Clinical Notes Section Notes 04/20/2024 Angioneurotic edema, initial encounter (ICD-10 - T78.3XXA) Plan Of Treatment Medication Medication Name Sig Start Date Stop Date Notes Cetirizine HCl 10 MG 1 tab(s) orally BID for 30 days 04/02 Pepcid 20 MG 1 tab(s) orally 2 ti mes a day for 30 days 04/02/2024 EpiPen 2-Dominguez 0.3 MG/0.3ML as directed in tramuscularly once for 1 dose(s) 04/02/2024 Progress Notes * Suyapa GARCIADOB:1955 (69 yo F)Acc No.[id number]:04/20/2024 Patient: Suyapa VALDEZ Provider: Digna Forte :1955 A ge:68 Y S ex:Female Date:04/20/2024 Address:[address] [place], [place] [id number] Pcp:Melody Joshi Subjective: * Chief Complaints: * [...] * Electronic signature of Alonso Vasquez on 02/21/2025 at 07:15 AM CDT Sign off status: Pending * Provider: Digna Forte Date: 0 04/20/2024 Generated for Printi ng/Guera/Amandaitting on: 0 02/21/2025 07:15 AM CDT
--- OUTSIDE RECORDS SUMMARY | 2025-02-21 07:16 | XMS_ITS | Clinical Summary ---
Author Organization [facility] Address [address] [place] [address] Care Team Providers Care Backwinder Name Role Phone Hever Mendez MD Primary Care Provider [phone] Source Comments [facility],non-owned Affiliates and Associated Physician Practices is amultiple site organization consisting of ambulatory clinics and hospital sitesin [place], [place], [place] and [place]. This disclosure is being madepursuant to the Care Everywhere program and may not contain all information available regarding this patient. 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 Gender Identity Not on file Sexual Orientation Not on file Plan of Treatment Health Maintenance Due Date Last Done Comments BONE DENSITY TESTING 1955 COLOGUARD (AGES 45-75) - COL ON CA SCREENING 1955 COLON MONITORING 1955 COLONOSCOPY - COLON CA SCREENING 1953 CT COLONOGRAPHY - COLON CA SCREENING 1955 Colorectal Cancer Screening 1955 FIT - COLON CA SCREENING 1955 FLEX SIG - COLON CA SCREENING 1955 LIPID TESTING 1955 MAMMOGRAM 1955 HEPATITIS C SCREENING 06/22/1971 DTAP/TDAP/TD VACCINES (1 - Tdap) 1972 PNEUMOCOCCAL VACCINE 50+ (1 of 1 - PCV) 2003 ZOSTER VACCINE (1 of 2) 2003 COVID-19 VACCINE ( - 2023-2 5 season) 2024 DEPRESSION SCREENING 11/06/2024 INFLUENZA VACCINE (Season Ended) 2025 Respiratory Syncytial Virus (RSV) Vaccine Pt: or over 60 yrs (1 - 1-dose 75+ series) 2028 HEPATITIS B VACCINE Aged Out No longe r eligible based on patient's age to complete this topic HIB VACCINE Aged Out No longer eligi ble based on patient's age to complete this topic HPV VACCINE Aged Out No longer eligi ble based on patient's age to complete this topic MENINGOCOCCAL (Group B) VACC INE SHARED DECISION-MAKING Aged Out No longer eligibl e based on patient's age to complete this topic MENINGOCOCCAL GROUPS A/C/Y/W VACCINE Aged Out No longer eligible b ased on patient's age to complete this topic Insurance MEDICARE Care Teams Backwinder Relationship Specialty Start Date End Date Hever Mendez MD [address] [place] [phone] PCP - General 01/10/19
--- OUTSIDE RECORDS SUMMARY | 2025-02-21 07:16 | XMS_ITS | Referral Summary ---
Author Organization [facility] Address [address] [place] [address] Care Team Providers Care Military Pay Technician Name Role Phone Melody Joshi DO Primary Care Provider [phone] Encounters Date Type Department Care Team Description 01/16/2025 Results Follow-Up [facility] Cardiology [address] [facility] [address] [place] [phone] Nadya Davenport MD 01/14/2025 Orders Only [facility] Cardiology [address] [facility] [address] [place] [phone] Nadya Davenport MD 01/13/2025 10:30 AM CDT Office Visit [facility] Cardiology [address] [facility] [address] [place] [phone] Nadya Davenport MD Essential hypertension (Primary Dx); Acute embolism and thrombosis of unspecified deep veins of lower extremity, bilateral (HCC); Chronic diastolic heart failure (HCC); History of pulmonary embolism from Last 3 Months Allergies Active Allergy Reactions Criticality Noted Date Comments Lisinopril Anaphylaxis,Delma Church ma High 03/10/2024 Other Anaphylaxis High 03/12/2024 Chicken [...] failure 01/13/2025 History of pulmonary embolism 01/13/2025 Social History Tobacco Use Types Packs/Day Years Used Date Smoking Tobacco: Every Day Cigarettes 0.5 5.3 Started: 2019 Smokeless Tobacco: Never Tobacco Cessation:Ready to Q uit: Not Asked; Counseling Given: Not Answered Comments Unknown Sex and Gender Information Value Date Recorded Sex Assigned at Not on file 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 * POCT lipid panel (01/13/2025 11:52 AM CDT) [facility] Cholesterol, POC 172 mg/dL Comment:GLU = 151 HDL, POC 25 mg/dL Triglycerides, POC 203 mg/dL LDL Cholesterol POC 106 mg/dL Chol/HDL Ratio, POC 4.2 Non-HDL Cholesterol, POC 147 mg/dL Cholesterol Total, POC 172 mg/dL Capillary blood 01/13/2025 1 1:52 AM CDT Nadya Davenport MD POINT OF CARE TEST O RDERABLES Final Result from Last 3 Months Insurance [facility] MEDICARE ADVANTAGE [facility] MEDICARE Address: [address] [address] [place] [address] MEDICARE [facility]LY [facility] MEDICARE SUPPLEMENT INSURANCE [facility] MEDICARE ADVANTAGE Care Teams Military Pay Technician Relationship Specialty Start Date End Date Melody Joshi DO PCP - General Family Medicine 12/23/21
== END 2025-02-21 07:12 | disposition home or self-care (01) ==
PROVIDERS: PCP Family Medicine; Visit Provider Internal Medicine Nephrology
DX: N28.81 Hypertrophy of kidney (principal); I12.9 Hypertensive chronic kidney disease with stage 1 through stage 4 chronic kidney disease, or unspecified chronic kidney disease; N18.32 Chronic kidney disease, stage 3b
CPT/HCPCS: 93976

== ENCOUNTER 2025-02-24 13:05 | Emergency (ER) | payer MEDICARE, SELFPAY ==
--- NOTE | ~2025-02-24 | CT_ITS ---
CTA chest PE protocol Ordering provider: Paola Fontana APRN History: 69 years Female with . shortness of breath . Comparison: None. Technique: CT angiogram chest was performed following timed intravenous injection of contrast. Thin s lice axial images and reformatted coronal images were obtained. Three dimensional reformatted images of the chest were also obtained using a [employer] workstation. . Automated exposure control and iterati ve reconstruction technique were employed. The dose-length product was 465.46 mGy-cm. 100 mL Omnipaqu e 350 was given IV. Findings: PULMONARY ARTERIES: No pulmonary embolus. VISUALIZED THORACIC INLET: Normal. MEDIASTINUM: Aorta/coronary arteries: Mild atheromatous disease. Heart/other: The heart is not enlarged. Lymph nodes: No mediastinal or hilar adenopathy. Precarinal lymph node measuring 1.7 cm is noted. LUNGS: No pulmonary masses. No infiltrates or effusions. No pneumothorax. Dependent atelectatic changes are noted. Small nodule seen in the left perihilar area measuring 5.4 mm. VISUALIZED UPPER ABDOMEN: Slightly Atrophic right kidney. Otherwise, the visualized upper abdomen is normal. MUSCULOSKELETAL: Soft tissues: Left axillary lymph node measuring 9 mm. Otherwise, The superficial soft tissues are no rmal. Bones: Hypodense lesion seen in the left body of L2. This may represent a metastatic lesion. Clinical correlation advised. Age appropriate degenerative changes of the spine. Sclerotic lesion in the righ t humerus suggestive of bone infarct versus cartilaginous lesion. Follow-up advised. Hemangioma in T4 . IMPRESSION: 1. No pulmonary embolism. 2. No acute cardiopulmonary pathology. 3. Hypodense lesion in L2 which may be metastatic. Clinical correlation and follow-up advised. 4. Precarinal lymph node measuring 1.7 cm. 5. Atrophic right kidney. 6. Sclerotic lesion in the right humerus. Follow-up advised. 7. 7 mm nodule in the left perihilar area. 6 months follow-up CT is advised. Reviewed, dictated and finalized at location A. IMPRESSION: 1. No pulmonary embolism. 2. No acute cardiopulmonary pathology. 3. Hypodense lesion in L2 which may be metastatic. Clinical correlation and fo llow-up advised. 4. Precarinal lymph node measuring 1.7 cm. 5. Atrophic right kidney. 6. Sclerotic lesion in the right humerus. Follow-up advised. 7. 7 mm nodule in the left perihilar area. 6 months follow-up CT is advised.
--- NOTE | ~2025-02-24 | XR_ITS ---
EXAMINATION: XR chest 2V DATE: 02/24/2025 13:49 INDICATION: Chest tightness TECHNIQUE: PA and lateral views of the chest were obtained. COMPARISON: Chest radiograph dated 11/19/[address] dated 11/20/2024 FINDINGS: The lungs are clear with no focal airspace opacities, pulmonary edema, pleural effusion or pneumothor ax. The cardiomediastinal silhouette is normal. Sclerotic lesion in the proximal right humerus with r ing and arc-like configuration is evident on prior CT consistent with chondroid matrix and an enchond ros. Mild lower thoracic levocurvature with severe spondylosis. IMPRESSION: 1. No acute cardiopulmonary disease. Reviewed, dictated and finalized at location A.
[2025-02-24 13:07] VITALS: BP 184/59; PULSE 50; RESP 18; TEMP 36.7; O2SAT 100
--- NOTE | 2025-02-24 13:07 | ECG_ITS ---
Test Date: 2025-02-24 13:11:52 Measurements Intervals Morris Rate: 47 P: 3 MD: 169 QRS: 26 QRSD: 99 T: 49 QT: 477 QTc: 425 Interpretive Statements SINUS BRADYCARDIA VOLTAGE CRITERIA FOR LVH ABNORMAL ECG Compared to ECG 11/19/2024 21:10:19 Ectopic atrial rhythm no longer present Electronically Signed On 02-24-2025 13:36:39 CDT by Jose Garcia D.O.
--- NOTE | 2025-02-24 13:17 | ED.CHESTPAIN ---
HPI - Chest Pain General Chief Complaint: Chest Pain <Paola Fontana APRN - Last Filed: 02/24/25 13:19> Stated Complaint: Sent from Dr Sampson office-abnormal EKG <Paola Fontana APRN - Last Filed: 02/24/25 13:19> Time Seen by Provider: 02/24/25 13:15 <Paola Fontana APRN - Last Filed: 02/24/25 13:19> Focused HPI: Patient is a 69-year-old female who presents to the ER after being sent here by her corporate attorney. She endorses chest tightness and shortness of breath that started approximately 3 days ago. Patient reports that she has been ?stuffed up recently. She endorses a history of high blood pressure, which is why she has corporate attorney. Patient denies any recent fevers, back pain, abdominal pain, lower extremity edema. GENERAL: Well-appearing, well-nourished, and in no acute distress. HEAD: Normocephalic, atraumatic. CHEST: Clear to auscultation. ?No respiratory distress. HEART: Regular rate and rhythm.? NEURO: ?Alert and oriented x3. Patient screened in triage and initial orders placed.? ?Additional care and disposition to be based upon?diagnostic testing and treatment. <Paola Fontana APRN - Last Filed: 02/24/25 13:19> History of Present Illness HPI narrative: Agree with the HPI above. 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 Currently not on any anticoagulation. She has had trouble with her medication management of her hypertension worse with her corporate attorney about this. She is currently on hydrochlorothiazide, clonidine, hydralazine. No beta-blockers or calcium channel blockers. Allergy to lisinopril. <Anthony Freeman MD - Last Filed: 02/24/25 18:02> Related Data Allergies/Adverse Reactions: Allergies Allergy/AdvReac Type Severity Reaction Status Date / Time lisinopril Allergy Mild Anaphylaxis Verified 02/24/25 13:06 <Paola Fontana APRN - Last Filed: 02/24/25 13:19> Review of Systems Review of Systems: As reviewed above in HPI <Anthony Freeman MD - Last Filed: 02/24/25 18:02> [facility] Past Medical History Medical History: Medical History Wears glasses Colon cancer screening Subcutaneous mass of back Other spondylosis, lumbar region Other abnormal glucose Obesity, unspecified Lumbar radiculopathy, chronic Lipoma of back Hypothyroidism, unspecified Essential (primary) hypertension DMII (diabetes mellitus, type 2) Breast cancer screening Allergic rhinitis, cause unspecified Acute UTI Foot injury Arthritis, midfoot Degenerative joint disease of ankle, right Right ankle pain Colon cancer screening (01/01/19) Negative Cologuard test Basal cell carcinoma (BCC) of upper back History of lipoma (~2017) left shoulder <Paola Fontana, DATA COMMUNICATIONS ANALYST - Last Filed: 02/24/25 13:19> Surgical History Surgical History: Surgical History History of hip replacement right hip 08/03/2017 Dr. Cox left hip 04/07/17 at [facility] <Paola Fontana, DATA COMMUNICATIONS ANALYST - Last Filed: 02/24/25 13:19> Family History Family History: Family History Father , age 87 Hypertension Family history of elevated blood lipids Mother , age 51 Asthma Patient's mother is , Onset Age: 53 Family history of chronic obstructive pulmonary disease Sibling , age 53 COPD (chronic obstructive pulmonary disease) Sibling No chronic problems <Paola Fontana, DATA COMMUNICATIONS ANALYST - Last Filed: 02/24/25 13:19> Social History Social History: Social History Smoking packs per day: 0.5 Smoking cigarettes per day: 10.0 Smoking status: Current every day smoker Second hand tobacco smoke exposure: No Alcohol intake: former Drinks per week: 1 Substance use type: does not use Do You Feel Safe in your Home?: Yes Lack of Transportation: No Lack of Food: Never True Current Housing: I Have Housing Concerned About Future Housing: No Difficulty Paying Gas/Electric Bills: No Difficulty Paying for Meds: No Currently Unemployed: No Education: Master's Degree or Higher Difficulty w/ Childcare or Family Care: No Living arrangements: with family Occupation/Education: retired Gender identity (if verbalized by the patient): Female Spiritual care concerns: No <Paola Fontana APRN - Last Filed: 02/24/25 13:19> Exam Narrative: GENERAL: [Well-appearing, well-nourished, and in no acute distress.] HEAD: [Normocephalic, atraumatic.] EYES: [PERRLA and EOMI.] ENT: Nares clear, no rhinorrhea or epistaxis. Mucous membranes moist. NECK: Supple. CHEST: [Clear to auscultation. No respiratory distress.] HEART: Bradycardic rate, regular rate. No murmur heard. [Normal peripheral pulses.] Warm extremities. ABDOMEN: [Soft, nondistended], [nontender], [No rigidity or guarding] EXTREMITIES: Normal range of motion. [No edema.] SKIN: Warm, dry, no rash. NEURO: [No focal deficits]. Alert and oriented [x3.] PSYCH: [Normal mood and affect.] <Anthony Freeman MD - Last Filed: 02/24/25 18:02> Course Vital Signs Vital signs: Vital Signs Temperature 36.7 C 02/24/25 13:07 Pulse Rate 50 L 02/24/25 13:07 Respiratory Rate 18 02/24/25 13:07 Blood Pressure 184/59 H 02/24/25 13:07 Pulse Oximetry 100 02/24/25 13:07 Oxygen Delivery Room Air 02/24/25 13:07 Temperature 36.7 C 02/24/25 13:07 Pulse Rate 49 L 02/24/25 17:46 Respiratory Rate 18 02/24/25 17:46 Blood Pressure 167/60 H 02/24/25 17:46 Pulse Oximetry 98 02/24/25 17:46 Oxygen Delivery Room Air 02/24/25 15:12 <Paola Fontana APRN - Last Filed: 02/24/25 13:19> Vital Signs Temperature 36.7 C 02/24/25 13:07 Pulse Rate 50 L 02/24/25 13:07 Respiratory Rate 18 02/24/25 13:07 Blood Pressure 184/59 H 02/24/25 13:07 Pulse Oximetry 100 02/24/25 13:07 Oxygen Delivery Room Air 02/24/25 13:07 Temperature 36.7 C 02/24/25 13:07 Pulse Rate 49 L 02/24/25 17:46 Respiratory Rate 18 02/24/25 17:46 Blood Pressure 167/60 H 02/24/25 17:46 Pulse Oximetry 98 02/24/25 17:46 Oxygen Delivery Room Air 02/24/25 15:12 <Anthony Freeman MD - Last Filed: 02/24/25 18:02> MDM - Chest Pain MDM Narrative Medical decision making narrative: 69-year-old female with a past medical history including hypertension, diabetes, prior provoked DVTs currently not on any anticoagulation. She presents from her corporate attorney's office upstairs for concerns of irregular EKG findings. Patient was complaining of chest pain and chest tightness for last 3-4 days associated with some shortness of breath. Patient's vital signs show some hypertension and bradycardia. She states the bradycardia is not new for her. She is hemodynamically stable answering questions appropriately. No mental status changes. Normal oxygen status, no fever respiratory effort concerns. Considerations presently are for hypertensive urgency/emergency, flash pulmonary edema, CHF, pulmonary embolism, aortic pathology. Possibility of ACS, or possible dysrhythmia. Workup was ordered including CBC, CMP, D-dimer, troponin, BNP. Chest x-ray and EKG were obtained. Initial EKG shows sinus bradycardia but no acute ST segment concerns. D-dimer was elevated and combined with her history of DVT a CT angiography of the chest was ordered. Patient's workup was largely unremarkable. She remained hemodynamically stable on electronic device monitor without any significant blood pressure elevations or hypotension. Remained asymptomatic, reassessments. No leukocytosis or anemia. Negative troponin initial and 3 hour. Creatinine at her baseline CKD. Normal glucose and LFTs. Normal electrolytes. Mildly elevated BNP, negative lipase. Chest x-ray shows no acute cardiopulmonary disease. CTA shows no PE or acute cardiopulmonary pathology. Incidental findings including L2 lesion, right humerus lesion, pericardial lymph node. Patient will be made aware for follow-up outpatient. I discussed the case with the patient's corporate attorney Dr. Davenport in regards to plan of care. Patient wishes to go home and follow-up outpatient rather than be admitted. Cardiology agrees and will set her up for an outpatient stress test. Patient will contact the clinic tomorrow morning to get this situated. Patient was given return precautions and safe for discharge. <Anthony Freeman MD - Last Filed: 02/24/25 18:02> Medical Records Data Attestation: I reviewed the patient's medical records. <Anthony Freeman MD - Last Filed: 02/24/25 18:02> Lab Data Attestation: I reviewed the patient's lab results. <Anthony Freeman MD - Last Filed: 02/24/25 18:02> Result diagrams: 02/24/25 13:36 02/24/25 13:36 <Paola Fontana APRN - Last Filed: 02/24/25 13:19> Labs: Lab Results 02/24/25 02/24/25 02/24/25 Range/Units 13:36 13:36 16:23 WBC 8.0 (4.5-10.0) K/mm3 RBC 4.42 (4.2-5.4) M/mm3 Hgb 13.0 (12.0-15.0) g/dL Hct 39.5 (37.0-47.0) % MCV 89.4 (80-100) fl MCH 29.4 (26-34) pg MCHC 32.9 (32-36) g/dl RDW 14.6 H (11.5-14.5) % Plt Count 288 (150-375) k/mm3 MPV 8.9 (7.4-10.4) fl Immature Gran % (Auto) 0.3 (0-0.5) % Neut % (Auto) 60.6 (45.5-73.1) % Lymph % (Auto) 31.0 (18.3-44.2) % Moffat % (Auto) 6.1 (2.6-8.5) % Eos % (Auto) 1.5 (0-4.4) % Baso % (Auto) 0.5 (0.2-1.2) % Lymph # (Auto) 2.47 (0.9-3.2) K/mm3 Moffat # (Auto) 0.5 (0.1-0.6) K/mm3 Eos # (Auto) 0.1 (0-0.3) K/mm3 Baso # (Auto) 0.0 (0.0-0.1) K/mm3 Abs Immat Gran (auto) 0.02 (0.00-0.031) K/mm3 Absolute Neuts (auto) 4.8 (1.3-6.7) K/mm3 Absolute Nucleated RBC 0.000 (0.0-0.012) K/mm3 Nucleated RBC % 0.0 (0.0-0.2) % PT 12.1 (11.1-14.7) Seconds INR 0.9 APTT 25.7 (22.3-36.8) Seconds D-Dimer 0.71 H Cancelled (<0.48) ug/mL Sodium 136 L (137-145) mmol/L Potassium 3.9 (3.4-5.0) mmol/L Chloride 102 (98-107) mmol/L Carbon Dioxide 25 (22-30) mmol/L Anion Gap 9 (4-12) mmol/L BUN 24 H (7-17) mg/dL Creatinine 1.47 H (0.7-1.0) mg/dL Estim Creat Clear Calc 35 ml/min Estimated GFR 35 L (59 - ) Glucose 102 (65-110) mg/dL Calcium 9.1 (8.4-10.2) mg/dL Total Bilirubin 0.4 (0.2-1.3) mg/dL AST 23 (14-36) U/L ALT 15 (6-35) U/L Alkaline Phosphatase 64 (38-126) U/L Troponin I < 0.012 < 0.012 (0.000-0.034) ng/mL NT-Pro-B Natriuret Pep 645 H (19.9-100) pg/mL Total Protein 7.0 (6.3-8.2) g/dL Albumin 4.2 (3.5-5.1) g/dL Lipase 64 (23-300) U/L <Paola Fontana, DATA COMMUNICATIONS ANALYST - Last Filed: 02/24/25 13:19> Lab Results 02/24/25 02/24/25 02/24/25 Range/Units 13:36 13:36 16:23 WBC 8.0 (4.5-10.0) K/mm3 RBC 4.42 (4.2-5.4) M/mm3 Hgb 13.0 (12.0-15.0) g/dL Hct 39.5 (37.0-47.0) % MCV 89.4 (80-100) fl MCH 29.4 (26-34) pg MCHC 32.9 (32-36) g/dl RDW 14.6 H (11.5-14.5) % Plt Count 288 (150-375) k/mm3 MPV 8.9 (7.4-10.4) fl Immature Gran % (Auto) 0.3 (0-0.5) % Neut % (Auto) 60.6 (45.5-73.1) % Lymph % (Auto) 31.0 (18.3-44.2) % Moffat % (Auto) 6.1 (2.6-8.5) % Eos % (Auto) 1.5 (0-4.4) % Baso % (Auto) 0.5 (0.2-1.2) % Lymph # (Auto) 2.47 (0.9-3.2) K/mm3 Moffat # (Auto) 0.5 (0.1-0.6) K/mm3 Eos # (Auto) 0.1 (0-0.3) K/mm3 Baso # (Auto) 0.0 (0.0-0.1) K/mm3 Abs Immat Gran (auto) 0.02 (0.00-0.031) K/mm3 Absolute Neuts (auto) 4.8 (1.3-6.7) K/mm3 Absolute Nucleated RBC 0.000 (0.0-0.012) K/mm3 Nucleated RBC % 0.0 (0.0-0.2) % PT 12.1 (11.1-14.7) Seconds INR 0.9 APTT 25.7 (22.3-36.8) Seconds D-Dimer 0.71 H Cancelled (<0.48) ug/mL Sodium 136 L (137-145) mmol/L Potassium 3.9 (3.4-5.0) mmol/L Chloride 102 (98-107) mmol/L Carbon Dioxide 25 (22-30) mmol/L Anion Gap 9 (4-12) mmol/L BUN 24 H (7-17) mg/dL Creatinine 1.47 H (0.7-1.0) mg/dL Estim Creat Clear Calc 35 ml/min Estimated GFR 35 L (59 - ) Glucose 102 (65-110) mg/dL Calcium 9.1 (8.4-10.2) mg/dL Total Bilirubin 0.4 (0.2-1.3) mg/dL AST 23 (14-36) U/L ALT 15 (6-35) U/L Alkaline Phosphatase 64 (38-126) U/L Troponin I < 0.012 < 0.012 (0.000-0.034) ng/mL NT-Pro-B Natriuret Pep 645 H (19.9-100) pg/mL Total Protein 7.0 (6.3-8.2) g/dL Albumin 4.2 (3.5-5.1) g/dL Lipase 64 (23-300) U/L <Anthony Freeman MD - Last Filed: 02/24/25 18:02> Imaging Data Attestation: I personally reviewed and interpreted this imaging study as follows: <Anthony Freeman MD - Last Filed: 02/24/25 18:02> My impression: Impressions Chest X-Ray 02/24/25 14:03 IMPRESSION: 1. No acute cardiopulmonary disease. Chest CTA 02/24/25 15:41 IMPRESSION: 1. No pulmonary embolism. 2. No acute cardiopulmonary pathology. 3. Hypodense lesion in L2 which may be metastatic. Clinical correlation and follow-up advised. 4. Precarinal lymph node measuring 1.7 cm. 5. Atrophic right kidney. 6. Sclerotic lesion in the right humerus. Follow-up advised. 7. 7 mm nodule in the left perihilar area. 6 months follow-up CT is advised. <Anthony Freeman MD - Last Filed: 02/24/25 18:02> ECG Data EKG #1: Attestation: I personally reviewed and interpreted this ECG as follows: <Anthony Freeman MD - Last Filed: 02/24/25 18:02> ECG completion date: 02/24/25 <Anthony Freeman MD - Last Filed: 02/24/25 18:02> ECG completion time: 13:11 <Anthony Freeman MD - Last Filed: 02/24/25 18:02> Prior ECG tracings: available for review <Anthony Freeman MD - Last Filed: 02/24/25 18:02> Interpretation: Sinus bradycardia with the rate of 47, QTC 4-5, NE interval 169, QRS 99. No ST segment elevations, depressions or inversions. No significant oval change compared to prior. Sinus bradycardia final interpretation. <Anthony Freeman MD - Last Filed: 02/24/25 18:02> Discharge Plan Discharge Clinical Impression: Chest pain, Shortness of breath <Paola Fontana APRN - Last Filed: 02/24/25 13:19> Patient Disposition: Home <Paola Fontana APRN - Last Filed: 02/24/25 13:19> Condition: Stable <Paola Fontana APRN - Last Filed: 02/24/25 13:19> Instructions: Antibiotic Form, Chest Pain (ED) <Paola Fontana APRN - Last Filed: 02/24/25 13:19> Additional Instructions: Your cardiac enzymes were undetectable here, your CT scan shows no pulmonary embolism or acute cardiopulmonary pathology. There are some incidental findings on your CT scan including some small nodules and lymph nodes which your primary care provider will have to follow up with you about and assess with outpatient evaluation and additional studies as warranted but they do not correspond to your presentation today. Doctor Ethel recommended an outpatient stress test and the contact his clinic tomorrow morning to get this set up as well as a follow-up appointment with him. Return if any new or worsening concerns. <Paola Fontana APRN - Last Filed: 02/24/25 13:19> Patient Language: Telugu <Paola Fontana APRN - Last Filed: 02/24/25 13:19> Prescriptions: No Action hydralazine 50 mg tablet 50 mg PO TID Qty: 90 5RF hydrochlorothiazide 25 mg tablet 25 mg PO QAM Qty: 30 5RF aspirin 81 mg Tablet,Delayed Release (Dr/Ec) 81 mg PO QAM Qty: 30 0RF levothyroxine 50 mcg tablet See Rx Instructions .ROUTE .COMPLEX Qty: 90 1RF Dose Instruction: Take 1 tablet by mouth once daily Rx Instructions: Take 1 tablet by mouth once daily clonidine HCl 0.2 mg tablet 0.2 mg PO BID Qty: 60 5RF <Paola Fontana APRN - Last Filed: 02/24/25 13:19> Follow-up/Referrals: Melody Joshi DO [Primary Care Provider] - Nadya Davenport MD [Physician] - 1 Day (outpatient stress test and follow up) <Paola Fontana APRN - Last Filed: 02/24/25 13:19> Time of Disposition: 18:01 <Paola Fontana APRN - Last Filed: 02/24/25 13:19> 18:01 <Anthony Freeman MD - Last Filed: 02/24/25 18:02>
[2025-02-24 13:42] LABS: Basophils Percent Auto 0.5 % (0.2-1.2); Eosinophils Absolute Auto 0.1 K/mm3 (0-0.3); Eosinophils Percent Auto 1.5 % (0-4.4); Hematocrit 39.5 % (37.0-47.0); Immature Granulocyte Absolute 0.02 K/mm3 (0.00-0.031); Immature Granulocyte Percent A 0.3 % (0-0.5); Lymphocytes Absolute Auto 2.47 K/mm3 (0.9-3.2); Mean Corpuscular HGB Conc 32.9 g/dl (32-36); Mean Corpuscular Hemoglobin 29.4 pg (26-34); Mean Corpuscular Volume 89.4 fl (80-100); Mean Platelet Volume 8.9 fl (7.4-10.4); Monocytes Absolute Auto 0.5 K/mm3 (0.1-0.6); Monocytes Percent Auto 6.1 % (2.6-8.5); Neutrophils Absolute Auto 4.8 K/mm3 (1.3-6.7); Neutrophils Percent Auto 60.6 % (45.5-73.1); Platelet Count Result 288 k/mm3 (150-375); Red Blood Count 4.42 M/mm3 (4.2-5.4); Red Cell Distribution Width 14.6 % (11.5-14.5)
[2025-02-24 13:54] LABS: Alanine Aminotransferase 15 U/L (6-35); Albumin Level 4.2 g/dL (3.5-5.1); Alkaline Phosphatase 64 U/L (38-126); Anion Gap 9 mmol/L (4-12); Aspartate Amino Transferase 23 U/L (14-36); Bilirubin,Total 0.4 mg/dL (0.2-1.3); Blood Urea Nitrogen 24 mg/dL (7-17); Calcium 9.1 mg/dL (8.4-10.2); Carbon Dioxide 25 mmol/L (22-30); Chloride 102 mmol/L (98-107); Estimated CRCL calculation 35 ml/min; Estimated Glomerular Filt Rate 35; Glucose 102 mg/dL (65-110); Lipase 64 U/L (23-300); Potassium 3.9 mmol/L (3.4-5.0); Sodium 136 mmol/L (137-145)
[2025-02-24 13:56] LABS: INR 0.9; Prothrombin Time 12.1 Seconds (11.1-14.7)
[2025-02-24 13:57] LABS: Partial Thromboplastin Time 25.7 Seconds (22.3-36.8)
[2025-02-24 14:02] LABS: NT Pro B Type Natriuretic Pept 645 pg/mL (19.9-100)
[2025-02-24 14:04] LABS: Troponin I < 0.012 ng/mL (0.000-0.034)
[2025-02-24 14:33] LABS: D Dimer 0.71 ug/mL (<0.48)
--- OUTSIDE RECORDS SUMMARY | 2025-02-24 14:41 | XMS_ITS ---
Author Organization [facility]ly [facility] [place] ([address]) Address [address] [place] [address] Care Team Providers Care Hydraulics Engineer Name Role Phone RosalindeverettMelody Primary Care Provider UnavailTamara Johnson Unavailable [phone] REASON FOR VISIT Labwork Encounters Encounter Location Date Provider Diagnosis [facility] [address] [place] [address] 04/06/2024 Tamara He Plan Of Treatment No Information Progress Notes * Leanne GARCIAsirishaDOB:1955 (68 yo F)Acc No.[id number]:04/06/2024 Patient: Suyapa VALDEZ :1955 A ge:68 Y S ex:Female [address], [address] * true * Date: Generated for Printi ng/Famichealg/eTransmitting on: 0 02/24/2025 02:41 PM CDT
--- OUTSIDE RECORDS SUMMARY | 2025-02-24 14:41 | XMS_ITS | Encounter Summary ---
Author Organization [facility] Address [address] [place] [address] Care Team Providers Care Material Mixer Name Role Phone Melody Joshi DO Primary Care Provider [phone]- [phone] Encounter Details Date Type Department Care Team (Late st Contact Info) Description 03/07/2001 Outpatient Historical [facility] SYLVIA CONTRERAS Social History Tobacco Use Types Packs/Day Years Used Date Smoking Tobacco: Never Assessed Comments Unknown Sex and Gender Information Value Date Recorded Sex Assigned at Not on file Legal Sex Female 4:48 AM [employer] Gender Identity Not on file Sexual Orientation Not on file documented as of this encounter Plan of Treatment Not on file documented as of this encounter Visit Diagnoses Not on filedocumented in this encounter Care Teams Material Mixer Relationship Specialty Start Date End Date Melody Joshi DO [address] [facility] [address] [place] [address] PCP - General Family Practice 04/09/24 documented as of this encounter
--- OUTSIDE RECORDS SUMMARY | 2025-02-24 14:41 | XMS_ITS | Patient Health Record ---
Author Organization [facility] [employer] [place] ([address]) Address [address] [place] [address] Care Team Providers Care Inventory Coordinator Name Role Phone Rosalindeverett Melody Primary Care Provider UnavailTamara Johnson Unavailable [phone] [employer], Provider Unavailable Unavailab le Allergies Allergen (clinical drug ingredient) Drug/Non Drug Allergy documented on EMR Reaction Allergy Type Onset Date Status Lisinopril angioedema Drug Allergy Activ e Results Component Value Reference Range Notes -F212 Mushroom Reviewed date:04/08/2024 02:28:54 PM Interpretation:Normal Performing Lab:[address] [id number], Phone - [phone], Director - Fabian Notes/Report: Test(s) [id number] Mushroom were developed and had performance characteristics determined by [facility]. These tests have not been cleared or approved by the U.S. Food and Drug Administration. The FDA has determined that such clearance or approval is not necessary. These tests are used for clinical purposes. These should not be regarded as investigational or for research. C391-VeD Mushroom <0.10 Class 0 kU/L Levels of Specific IgE Class Description of Class ----- < 0.10 0 Negative 0.10 - 0.31 0/I Equivocal/Low 0.32 - 0.55 I Low 0.56 - 1.40 II Moderate 1.41 - 3.90 III High 3.91 - 19.00 IV Very High 19.01 - 100.00 V Very High >100.00 Very High -Complement C4, Serum Reviewed date:04/08/2024 02:28:45 PM Interpretation:Normal Performing Lab:[address] [id number], Phone - [phone], Director - [facility] Notes/Report: Complement C4, Serum 32 12-38 mg/dL -Sedimentation Rate-Westergr en Reviewed date:04/08/2024 02:28:29 PM Interpretation:Normal Performing Lab:[address] [id number], Phone - [phone], Director - [facility] Notes/Report: Sedimentation Rate-Westergren 11 0-40 mm/hr -CBC With Differential/Plate let Reviewed date:04/08/2024 02:28:21 PM Interpretation:Abnormal Performing Lab:[address] [id number], Phone - [phone], Director - [facility] Notes/Report: WBC 7.1 3.4-10.8 x10E3/uL RBC 3.60 [...] Total Reviewed date:04/08/2024 02:28:01 PM Interpretation:Normal Performing Lab:[address] [id number], Phone - [phone], Director - [facility] Notes/Report: Test(s) [id number] Mushroom were developed and had performance characteristics determined by [facility]. These tests have not been cleared or approved by the U.S. Food and Drug Administration. The FDA has determined that such clearance or approval is not necessary. These tests are used for clinical purposes. These should not be regarded as investigational or for research. Immunoglobulin E, Total 4 6-495 IU/mL -Complement C1q, Quantitativ e Reviewed date:04/10/2024 11:59:11 AM Interpretation:Normal Performing Lab:[address] [id number], Phone - [phone], Director - [facility] Notes/Report: Complement C1q, Quantitative 13.5 10.3-20.5 mg [...] W/U Status Risk Notes Problem Food allergy (189327472) Allergy to other foods (Z91.018) Active confirmed Problem Allergy status to other drugs, medicaments and biological substances (Z88.8) Active confirmed Vital Signs Oximetry 99 % 04/02/2024 Blood pressure diastolic 67 mm Hg 04/02/2024 Height 66 in 04/02/2024 Blood pressure systolic 178 mm Hg 04/02/2024 Weight 180.0 lbs 04/02/2024 BMI 29.05 kg/m2 04/02/2024 Encounters Encounter Location Date Provider Diagnosis [address] [address] 04/20/2024 Provider Christina Angioneurotic edema, initial encounter T78.3XXA [address] [address] 04/02/2024 Tamara He Angioneurotic edema, initial encounter T78.3XXA ; Allergy status to other drugs, medicaments and biological substances Z88.8 and Allergy to other foods Z91.[address] [address] 04/02/2024 Tamara He [address] [address] 04/06/2024 Tamara He Assessments Encounter Date Diagnosis (ICD Code) Assessment Notes Treatment Notes Treatment Clinical Notes Section Notes 04/02/2024 Angioneurotic edema, initial encounter (ICD-10 - T78.3XXA) Labs requested from [facility]. Considerations include hereditary angioedema, idiopathic, food or KAYLEY induced angioedema. Since she has been taking lisinopril for many years, less likely the cause but needs to be avoided. We discussed that food allergies normally occur within 24 hours of eating the food. Labs ordered as above for further evaluation. C1 esterase functional assay was requested from [facility]. She does not take NSAIDS. For [...] Coverage End Date [employer] [address] [address] [place] [address] [id number] Suyapa Garcia Self - patient is the insured 4 Medical (General) History Medical History History ICD Code Hypertension Hyperlipidemia Hypothyroidism Surgical History Surgery Date(Month/Year) bilateral hip replacement 2017 Hospitalization History Reason Date(Month/Year) [facility], [place] 03/10/2024
--- OUTSIDE RECORDS SUMMARY | 2025-02-24 14:42 | XMS_ITS | Encounter Summary ---
Author Organization [facility] Healthcare Address [address] [place] [address] Care Team Providers Care Pre Sales Technical Consultant Name Role Phone Melody Joshi DO Primary Care Provider +1- [phone] Reason for Visit * Reason Comments Chest Pain Encounter Details Date Type Department Care Team (Late st Contact Info) Description 02/24/2025 1:00 PM CDT Office Visit [facility] Medical Group Cardiology [address] [place] [address] Nadya Davenport MD [address] [address] Essential hypertension (Primary Dx); Chronic diastolic heart failure (HCC); History of pulmonary embolism; Other chest pain Social History Tobacco Use Types Packs/Day Years Used Date Smoking Tobacco: Every Day Cigarettes 0.5 5.3 Started: 2019 Smokeless Tobacco: Never Comments Unknown Sex and Gender Information Value Date Recorded Sex Assigned at Not on file Legal Sex Female 9:04 AM AIR DEFENSE SPECIALIST Gender Identity Not on file Sexual Orientation Not on file documented as of this encounter Last Filed Vital Signs Vital Sign Reading Time Taken Comments Blood Pressure 160/76 02/24/2025 12:34 PM CDT Pulse 48 02/24/2025 12:34 PM CDT Temperature - - Respiratory Rate - - Oxygen Saturation 98% 02/24/2025 12:34 PM CDT Inhaled Oxygen Concentration - - Weight 88 kg (194 lb) 02/24/2025 12:34 PM CDT Height 167.6 cm (5' 6 ) 02/24/2025 12:34 PM CDT Body Mass Index 31.31 02/24/2025 12:34 PM CDT documented in this encounter Plan of Treatment Not on file documented as of this encounter Procedures Procedure Name Priority Date/Time Associated Diagnosis Comments ELECTROCARDIOGRAM REPORT Routine 025 1:44 PM CDT Chronic diastolic heart failure (HCC) Other chest pain documented in this encounter Results * Electrocardiogram Report (02/24/2025 1:44 PM CDT) Lucaeer James Davenport MD ECG ORDERABLES Raine l Result documented in this encounter Visit Diagnoses Diagnosis Essential hypertension- Primary Unspecified essential hypertension Chronic diastolic heart failure (HCC) Chronic diastolic heart failure History of pulmonary embolism Personal history of venous thrombosis and embolism Other chest pain documented in this encounter Care Teams Pre Sales Technical Consultant Relationship Specialty Start Date End Date Melody Joshi DO PCP - General Family Medicine 12/23/21 documented as of this encounter
--- OUTSIDE RECORDS SUMMARY | 2025-02-24 14:42 | XMS_ITS ---
Author Organization [facility] [place] ([address]) Address [address] [place] [address] Care Team Providers Care Belt And Link Shop Supervisor Name Role Phone Rosalindeverett Melody Primary Care Provider UnavailTamara Johnson Unavailable [phone] REASON FOR VISIT labs Encounters Encounter Location Date Provider Diagnosis [facility] [address] [place] [address] 04/02/2024 Tamara He Plan Of Treatment No Information Progress Notes * Leanne GARCIAsirishaDOB:1955 (68 yo F)Acc No.[id number]:04/02/2024 Patient: Suyapa VALDEZ :1955 A ge:68 Y S ex:Female Address:[place], [address] * true * Date: Generated for Printi ng/Faxing/eTransmitting on: 0 02/24/2025 02:41 PM CDT
--- OUTSIDE RECORDS SUMMARY | 2025-02-24 14:42 | XMS_ITS ---
Author Organization [facility] [place] ([address]) Address [address] [place] [address] Care Team Providers Care Pc Tech Name Role Phone Rosalindamychristine Melody Primary Care Provider Unavailabl e Tamara He Unavailable [phone] [employer], Provider Unavailable Unavailab le Allergies Allergen (clinical drug ingredient) Drug/Non Drug Allergy documented on EMR Reaction Allergy Type Onset Date Status Lisinopril angioedema Drug Allergy Activ e REASON FOR VISIT [facility] To [facility] Conversion Encounter Medications Medication SIG (Take, [...] Active Encounters Encounter Location Date Provider Diagnosis [facility] [place] [address] 04/20/2024 Provider Christina Angioneurotic edema, initial encounter [...] Notes * Suyapa GARCIADOB:1955 (69 yo F)Acc No.[id number]:04/20/2024 Patient: Suyapa VALDEZ Provider: Digna Forte :1955 A ge:68 Y S ex:Female Date:04/20/2024 Address:[address] [place] [address], [facility] Pcp:Melody Joshi Subjective: * Chief Complaints: * 1 . [facility] Conversion Encounter. * Medical History: * Medications: [...] Procedure Codes: * Electronic signature of Alonso JEAN-Jann on 02/24/2025 at 12:27 PM CDT Sign off status: Pending * Provider: Digna Forte Date: 0 04/20/2024 Generated for Samy rivera/Guera/Amandaitting on: 0 02/24/2025 12:27 PM CDT
--- OUTSIDE RECORDS SUMMARY | 2025-02-24 14:42 | XMS_ITS | Continuity of Care Document ---
Author Organization [facility] Address [address] [place] [address] Phone Care Team Providers Care Sleep Manager Name Role Phone Dickinson OD, Kyler Unavailable Unavailable Advance Directives Directive Yes / No Effective Date File Name No Information Encounters Encounter Description Practice Location Reason(s) For Visit Diagnoses Date Provider Providers Copied on Encounter [facility], [address], [place], [place], [id number], [place] tel:[phone] [facility] No Information Aug-0 8-200 2 Dickinson OD Kyler. [address] , [address], [place], [address], [place]. tel:[phone] Family History Family Member Type Diagnosis Age At Onset No Information Payers Payer name Insurance type Covered republican ID Authoriza tion(s) No Information Social History [...]
--- OUTSIDE RECORDS SUMMARY | 2025-02-24 14:42 | XMS_ITS | Clinical Summary ---
Author Organization [facility] Address [address] [facility] [place] [address] Care Team Providers Care Industrial Eng Name Role Phone Hevre Mendez MD Primary Care Provider [phone] Source Comments [facility],non-owned Affiliates and Associated Physician Practices is amultiple site organization consisting of ambulatory clinics and hospital sitesin [place], [place], [place] and [place]. This disclosure is being madepursuant to the Care Everywhere program and may not contain all information available regarding this patient. 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
--- OUTSIDE RECORDS SUMMARY | 2025-02-24 14:42 | XMS_ITS | Referral Summary ---
Author Organization [facility] Address [address] [place] [address] Care Team Providers Care Medical Laboratory Technologist Name Role Phone Melody Joshi DO Primary Care Provider [phone]- [phone] Encounters Date Type Department Care Team Description 02/24/2025 Telephone [facility] Cardiology [address] [place] [address] [place] [phone] Nadya Davenport MD 02/24/2025 1:00 PM CDT Office Visit [facility] Cardiology [address] [place] [address] [address] [place] [phone] Nadya Davenport MD Essential hypertension (Primary Dx); Chronic diastolic heart failure (HCC); History of pulmonary embolism; Other chest pain 01/16/2025 Results Follow-Up [facility] Cardiology [address] [place] [address] [place] [phone] Nadya Davenport MD 01/14/2025 Orders Only [facility] Cardiology [facility] [address] [place] [phone] Nadya Davenport MD 01/13/2025 10:30 AM CDT Office Visit [facility] Cardiology [address] [place] [address] [address] [place] [phone] Nadya Davenport MD Essential hypertension (Primary Dx); Acute embolism and thrombosis of unspecified deep veins of lower extremity, bilateral (HCC); Chronic diastolic heart failure (HCC); History of pulmonary embolism from Last 3 Months Allergies Active Allergy Reactions Criticality Noted Date Comments Lisinopril Anaphylaxis,Angioede aristides,S welling High 03/10/2024 Other Anaphylaxis High 03/12/2024 Chicken of the kovacs mushroom, Danielus spp. 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 Gender Identity Not on file Sexual Orientation [...] Mass Index 31.31 02/24/2025 12:34 PM CDT Plan of Treatment Not on file Procedures Procedure Name Priority Date/Time Associated Diagnosis Comments ELECTROCARDIOGRAM REPORT Routine 025 1:44 PM CDT Chronic diastolic heart failure (HCC) Other chest pain BASIC METABOLIC PANEL Routine 01/14/2025 10:32 AM CDT POCT LIPID PANEL Routine 01/13/2025 11:5 2 AM CDT Essential hypertension from Last 3 Months Results * Electrocardiogram Report (02/24/2025 1:44 PM CDT) us Nadya Davenport MD ECG ORDERABLES Raine l Result * (ABNORMAL) Basic metabolic panel (01/14/2025 10:32 AM CDT) [facility] Glucose 131(H) 70 - 99 mg/dL [facility] [...] - 01/15/2025 1:07 AM CDT Performed at: 01 - [address] [id number] Dietitian: Alexi Cali PhD, Phone: [phone] us Nadya Davenport MD LAB BLOOD ORDERABLES Final Result [facility] - 01 * POCT lipid panel (01/13/2025 11:52 AM CDT) Cholesterol, POC 172 mg/dL Comment:GLU = 151 HDL, POC 25 mg/dL Triglycerides, POC 203 mg/dL LDL Cholesterol POC 106 mg/dL Chol/HDL Ratio, POC 4.2 Non-HDL Cholesterol, POC 147 mg/dL Cholesterol Total, POC 172 mg/dL Capillary blood 01/13/2025 1 1:52 AM CDT us Nadya Davenport MD POINT OF CARE TEST O RDERABLES Final Result from Last 3 Months Insurance UHC MEDICARE ADVANTAGE [facility] MEDICARE Address: [address] [address] [place] [address] MEDICARE [facility] MEDICARE SUPPLEMENT INSURANCE [facility] MEDICARE ADVANTAGE [facility] MEDICARE Address: [address] [address] [place] [address] Care Teams Medical Laboratory Technologist Relationship Specialty Start Date End Date Melody Joshi DO PCP - General Family Medicine 12/23/21
--- OUTSIDE RECORDS SUMMARY | 2025-02-24 14:42 | XMS_ITS | Encounter Summary ---
Author Organization [facility] Healthcare Address [address] [place] [address] Care Team Providers Care Head Of Academic Technology Name Role Phone Melody Joshi DO Primary Care Provider +1- [phone] Encounter Details Date Type Department Care Team (Late st Contact Info) Description 01/16/2025 Results Follow-Up [facility] Medical Group Cardiology [address] [place] [address] [place] [address] [place] [address] Social History Tobacco Use Types Packs/Day Years Used Date Smoking Tobacco: Every Day Cigarettes 0.5 5.3 Started: 2019 Smokeless Tobacco: Never Comments Unknown Sex and Gender Information Value Date Recorded Sex Assigned at Not on file 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
--- OUTSIDE RECORDS SUMMARY | 2025-02-24 14:42 | XMS_ITS | Clinical Summary ---
Author Organization [facility] Address [address] [place] 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
--- OUTSIDE RECORDS SUMMARY | 2025-02-24 14:42 | XMS_ITS | Clinical Summary ---
Author Organization [facility] Address [address] [place] [address] Care Team Providers Care Blood Tester Name Role Phone Melody Joshi DO Primary Care Provider +1- [phone] Allergies Active Allergy Reactions Criticality Noted Date [...] Date Type Department Care Team Description 02/24/2025 1:00 PM CDT Office Visit [facility] Medical Group Cardiology [address] [facility] [address] [place] [address] Nadya Davenport MD Essential hypertension (Primary Dx); Chronic diastolic heart failure (HCC); History of pulmonary embolism; Other chest pain 02/24/2025 Telephone [facility] Medical Group Cardiology [address] [place] [address] Nadya Davenport MD 01/16/2025 Results Follow-Up [facility] Cardiology [address] [facility] [address] [place] [phone] Nadya Davenport MD 01/14/2025 Orders Only [facility] Cardiology [address] [facility] [address] [place] [phone] Nadya Davenport MD 01/13/2025 10:30 AM CDT Office Visit [facility] Cardiology [address] [facility] [address] [place] [address] Nadya Davenport MD Essential hypertension (Primary Dx); [...] Tobacco: Every Day Cigarettes 0.5 5.3 Started: 2020 Smokeless Tobacco: Never Tobacco Cessation:Ready to Q uit: Not Asked; Counseling Given: Not Answered Comments Unknown Sex and Gender Information Value Date Recorded Sex Assigned at Not on file 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 Gender Identity Not on file Sexual Orientation [...] 02/24/2025 12:34 PM CDT Plan of Treatment Health Maintenance Due Date Last Done Comments Breast Cancer Screening-Mammogram 1955 Colon Cancer Screening-Colonoscopy 1955 Depression Screening 1955 Fall Risk Assessment 1955 Hepatitis C Screening 1955 Osteoporosis Screening-Bone Density Scan 1955 Well Visit 65+ 2018 Covid-19 Vaccine (2023-2 5 season) 2024 09/10/2021, 01/19/2021, 12/29/2020 Influenza [...] 1:07 AM CDT Performed at: 01 - [address] [id number] Pv Design And Installation Technician: Alexi Cali PhD, Phone: [phone] Nadya Davenport MD LAB BLOOD ORDERABLES Final [...] Final Result from Last 3 Months Insurance [facility] MEDICARE ADVANTAGE [facility] Address: [address] [address] [place] [address] MEDICARE [facility] MEDICARE SUPPLEMENT INSURANCE [facility] MEDICARE ADVANTAGE [facility] Address: [address] [address] Care Teams Blood Tester Relationship Specialty Start Date End Date Melody Joshi DO PCP - General Family Medicine 12/23/21
--- OUTSIDE RECORDS SUMMARY | 2025-02-24 14:42 | XMS_ITS | Encounter Summary ---
Author Organization [facility] Healthcare Address [address] [place] [address] Care Team Providers Care Prepress Stripper Name Role Phone Melody Joshi DO Primary Care Provider +1- [phone] Encounter Details Date Type Department Care Team (Late st Contact Info) Description 02/24/2025 Telephone [facility] Medical Group Cardiology [address] [place] [address] [place] [address] [place] [address] Social History Tobacco Use Types Packs/Day Years Used Date Smoking Tobacco: Every Day Cigarettes 0.5 5.3 Started: 2019 Smokeless Tobacco: Never Comments Unknown Sex and Gender Information Value Date Recorded Sex Assigned at Not on file 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 * Telephone Encounter - Paola Son - 02/24/2025 1:26 PM CDT Dyan from ED requesting EKG report that was done in our office today be faxed to her. Thank you. Contact: documented in this encounter Plan of Treatment Not on file documented as of this encounter Visit Diagnoses Not on filedocumented in this encounter Care Teams Prepress Stripper Relationship Specialty Start Date End Date Melody Joshi DO PCP - General Family Medicine 12/23/21 documented as of this encounter
[2025-02-24 15:12] VITALS: O2SAT 100
[2025-02-24 15:13] VITALS: BP 196/66; PULSE 54; RESP 20; O2SAT 100
--- OUTSIDE RECORDS SUMMARY | 2025-02-24 15:13 | XMS_ITS | Continuity of Care Document ---
Author Organization [facility] Address [address] [place] [address] Phone Care Team Providers Care Applications Sales Representative Name Role Phone Dickinson OD, Kyler Unavailable Unavailable Advance Directives Directive Yes / No Effective Date File Name No Information Encounters Encounter Description Practice Location Reason(s) For Visit Diagnoses Date Provider Providers Copied on Encounter [facility], [address], [place], [place], [id number], [place] tel:[phone] [facility] No Information Aug-0 8-200 2 Dickinson OD Kyler. [address] , [address], [place], [address], [place]. tel:[phone] Family History Family Member Type Diagnosis Age [...]
--- OUTSIDE RECORDS SUMMARY | 2025-02-24 15:13 | XMS_ITS | Encounter Summary ---
Author Organization [facility] Address 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
--- OUTSIDE RECORDS SUMMARY | 2025-02-24 15:14 | XMS_ITS | Clinical Summary ---
Author Organization [facility] Address [address] [facility] [place] [address] Care Team Providers Care Computer Support Technician Name Role Phone Hever Mendez MD Primary Care Provider [phone] Source Comments [facility],non-owned Affiliates and Associated Physician Practices is amultiple site organization consisting of ambulatory clinics and hospital sitesin [place], [place], [place] and [place]. This disclosure is being madepursuant to the Care Everywhere program and may not contain all information available regarding this patient. 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
--- OUTSIDE RECORDS SUMMARY | 2025-02-24 15:14 | XMS_ITS | Referral Summary ---
Author Organization [facility] Address [address] [place] [address] Care Team Providers Care Signal Tester Name Role Phone Melody Joshi DO Primary Care Provider +1- [phone] Encounters Date Type Department Care Team Description 02/24/2025 Telephone [facility] Cardiology [address] [place] [address] [place] [phone] Nadya Davenport MD 02/24/2025 1:00 PM CDT Office Visit [facility] Cardiology [address] [place] [address] [address] [place] [phone] Nadya Davenport MD Essential hypertension (Primary Dx); Chronic diastolic heart failure (HCC); History of pulmonary embolism; Other chest pain 01/16/2025 Results Follow-Up [facility] Cardiology [address] [place] [address] [place] [phone] Nadya Davenport MD 01/14/2025 Orders Only [facility] Cardiology [facility] [address] [place] [phone] Nadya Davenport MD 01/13/2025 10:30 AM CDT Office Visit [facility] Cardiology [address] [place] [address] [address] [place] [phone] Nadya Davenport MD Essential hypertension (Primary Dx); [...] on file 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 Gender Identity Not on file Sexual Orientation [...] Basic metabolic panel (01/14/2025 10:32 AM CDT) [facility] Glucose 131(H) 70 - 99 mg/dL [...] 1:07 AM CDT Performed at: 01 - [address] [id number] Police Radio Dispatcher: Alexi Cali PhD, Phone: [phone] us Nadya Davenport MD LAB BLOOD ORDERABLES [...] Last 3 Months Insurance UHC MEDICARE ADVANTAGE MEDICARE REPLACED BY [facility] MEDICARE SUPPLEMENT INSURANCE [facility] MEDICARE ADVANTAGE Care Teams Signal Tester Relationship Specialty Start Date End Date Melody Joshi DO PCP - General Family Medicine 12/23/21
--- OUTSIDE RECORDS SUMMARY | 2025-02-24 15:14 | XMS_ITS | Clinical Summary ---
Author Organization [facility] Address 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
--- OUTSIDE RECORDS SUMMARY | 2025-02-24 15:14 | XMS_ITS | Clinical Summary ---
Author Organization [facility] Address [address] [place] [address] Care Team Providers Care Sleeve Turner Name Role Phone Melody Joshi DO Primary Care Provider +1- [phone] Allergies Active Allergy Reactions Criticality Noted Date [...] Description 02/24/2025 1:00 PM CDT Office Visit [facility] Cardiology [address] [place] [address] Nadya Davenport MD Essential hypertension (Primary Dx); Chronic diastolic heart failure (HCC); History of pulmonary embolism; Other chest pain 02/24/2025 Telephone [facility] Cardiology [address] [place] [address] Nadya Davenport MD 01/16/2025 Results Follow-Up [facility] Cardiology [address] [place] [address] Nadya Davenport MD 01/14/2025 Orders Only [facility] Cardiology [address] [facility] [address] [place] [phone] Nadya Davenport MD 01/13/2025 10:30 AM CDT Office Visit [facility] Cardiology [address] [place] [address] Nadya Davenport MD Essential hypertension (Primary Dx); [...] on file 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
--- OUTSIDE RECORDS SUMMARY | 2025-02-24 15:14 | XMS_ITS | Encounter Summary ---
Author Organization [facility] Healthcare Address [address] [place] [address] Care Team Providers Care Water Taxi Captain Name Role Phone Melody Joshi DO Primary Care Provider +1- [phone] Encounter Details Date Type Department Care Team (Late st Contact Info) Description 02/24/2025 Telephone [facility] Cardiology [address] [place] [address] [place] [address] [place] [address] Social History Tobacco Use Types Packs/Day Years Used Date Smoking Tobacco: Every Day Cigarettes 0.5 5.3 Started: 2019 Smokeless Tobacco: Never Comments Unknown Sex and Gender Information Value Date Recorded Sex Assigned at Not on file 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
--- OUTSIDE RECORDS SUMMARY | 2025-02-24 15:14 | XMS_ITS | Encounter Summary ---
Author Organization [facility] Healthcare Address [address] [place] [address] Care Team Providers Care Addressing Machine Operator Name Role Phone Melody Joshi DO Primary Care Provider +1- [phone] Encounter Details Date Type Department Care Team (Late st Contact Info) Description 01/16/2025 Results Follow-Up [facility] Cardiology [address] [place] [address] [place] [address] [place] [address] Social History Tobacco Use Types Packs/Day Years Used Date Smoking Tobacco: Every Day Cigarettes 0.5 5.3 Started: 2019 Smokeless Tobacco: Never Comments Unknown Sex and Gender Information Value Date Recorded Sex Assigned at Not on file Legal Sex Female 9: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
--- OUTSIDE RECORDS SUMMARY | 2025-02-24 15:14 | XMS_ITS | Encounter Summary ---
Author Organization [facility] Healthcare Address [address] [place] [address] Care Team Providers Care Drug Enforcement Agent Name Role Phone Melody Joshi DO Primary Care Provider +1- [phone] Reason for Visit * Reason Comments Chest Pain Encounter Details Date Type Department Care Team (Late st Contact Info) Description 02/24/2025 1:00 PM CDT Office Visit [facility] Cardiology [address] [place] [address] Nadya Davenport MD [address] [address] Essential hypertension (Primary Dx); Chronic diastolic heart failure (HCC); History of pulmonary embolism; Other chest pain Social History Tobacco Use Types Packs/Day Years Used Date Smoking Tobacco: Every Day Cigarettes 0.5 5.3 Started: 2019 Smokeless Tobacco: Never Comments Unknown Sex and Gender Information Value Date Recorded Sex Assigned at Not on file 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
[2025-02-24] MEDS: ASPIRIN 81 MG CHEWABLE TABLET 324 MG PO (15:15)
--- NOTE | 2025-02-24 15:55 | ECG_ITS ---
Test Date: 2025-02-24 16:25:28 Measurements Intervals [place] Rate: 44 P: 64 KS: 204 QRS: 11 QRSD: 98 T: 5 QT: 511 QTc: 440 Interpretive Statements SINUS BRADYCARDIA VOLTAGE CRITERIA FOR LVH MINIMAL Q WAVES- HIGH LATERAL LEADS BASELINE ARTIFACT- I, II, III, AVR, AVL, AVF ABNORMAL ECG Compared to ECG 02/24/2025 13:11:52 NO SIGNIFICANT CHANGE Electronically Signed On 02-24-2025 16:34:14 CDT by Jose Garcia D.O.
[2025-02-24 16:28] VITALS: BP 194/56; PULSE 52; RESP 18; O2SAT 100
[2025-02-24 16:50] VITALS: BP 173/62; PULSE 51; RESP 16; O2SAT 100
[2025-02-24 16:50] LABS: Troponin I < 0.012 ng/mL (0.000-0.034)
[2025-02-24 17:46] VITALS: BP 167/60; PULSE 49; RESP 18; O2SAT 98
== END 2025-02-24 18:10 | disposition home or self-care (01) ==
PROVIDERS: General Practice; Registered Nurse; Emergency Provider Student in an Organized Health Care Education/Training Program; PCP Family Medicine
DX: R07.89 Other chest pain (principal); R06.02 Shortness of breath; I10 Essential (primary) hypertension; E66.9 Obesity, unspecified; Z68.30 Body mass index [BMI] 30.0-30.9, adult; E03.9 Hypothyroidism, unspecified; E11.9 Type 2 diabetes mellitus without complications; M19.079 Primary osteoarthritis, unspecified ankle and foot; F17.210 Nicotine dependence, cigarettes, uncomplicated; Z96.643 Presence of artificial hip joint, bilateral; Z85.828 Personal history of other malignant neoplasm of skin; Z87.440 Personal history of urinary (tract) infections; Z86.718 Personal history of other venous thrombosis and embolism; Z79.82 Long term (current) use of aspirin; Z79.899 Other long term (current) drug therapy; M89.9 Disorder of bone, unspecified; R91.1 Solitary pulmonary nodule; N26.1 Atrophy of kidney (terminal); R00.1 Bradycardia, unspecified
CPT/HCPCS: 36415; 71046; 71275; 80053; 83690; 83880; 84484; 85025; 85380; 85610; 85730; 93005; 99284; A9270; Q9967

== ENCOUNTER 2025-04-02 07:44 | Outpatient (CLI) | payer MEDICARE, SELFPAY ==
--- NOTE | ~2025-04-02 | CT_ITS ---
Clinical Indication: Lymphadenopathy CT Scan of the Chest with Contrast: Technique: Contiguous sections were acquired throughout the chest after intravenous administration of 75 cc of Omnipaque 350. Dose reduction technique was used on this scan by utilizing automated exposu re control and iterative reconstruction technique. The dose-length product (DLP) was 276.39 mGy-cm. COMPARISON: 02/24/2025 Findings: There is no evidence of any significant mediastinal, hilar or axillary lymphadenopathy. There is no f illing defect in the pulmonary arterial tree to suggest pulmonary embolus. There is no evidence of ao rtic dissection or aneurysm. There is no evidence of pleural or pericardial effusion. Stable 5 mm left upper lobe perihilar nodule (axial image 56). Images through the upper abdomen reveal no abnormalities. Stable partially imaged lytic lesion in the L2 vertebral body on the left side. Probable enchondroma in the proximal right humerus. Impression: Stable 5 mm left upper lobe nodule in the perihilar region. Stable partially imaged lytic/lucent lesion in the L2 vertebral body, indeterminate. Probable enchondroma the proximal right humerus. Reviewed, dictated and finalized at location . Impression: Stable 5 mm left upper lobe nodule in the perihilar region. Stable partially imaged lytic/lucent lesion in the L2 vertebral body, indetermi kia. Probable enchondroma the proximal right humerus.
--- OUTSIDE RECORDS SUMMARY | 2025-04-02 07:48 | XMS_ITS | Encounter Summary ---
Author Organization [facility] Address [address] [place] [address] Care Team Providers Care Regulatory Affairs Internship Name Role Phone Melody Joshi DO Primary Care Provider +1- [phone] Encounter Details Date Type Department Care Team (Late st Contact Info) Description 04/01/2025 External Device Data [facility] ABSTRACTION Provider, Abstract NO ADDRESS ON FILE Social History Tobacco Use Types Packs/Day Years Used Date Smoking Tobacco: Every Day Cigarettes 1 3.9 Started: 05/06/2021 Alcohol Use Standard Drinks/Week Comments Yes 0 (1 standard drink = 0.6 oz pur e alcohol) socially Comments Unknown Sex and Gender Information Value Date Recorded Sex Assigned at Not on file 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
--- OUTSIDE RECORDS SUMMARY | 2025-04-02 07:48 | XMS_ITS | Encounter Summary ---
Author Organization [facility] Address 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
--- OUTSIDE RECORDS SUMMARY | 2025-04-02 07:48 | XMS_ITS | Continuity of Care Document ---
Author Organization [facility] Address [address] [place] [address] Phone Care Team Providers Care Websphere Commerce Developer Name Role Phone Dickinson OD, Kyler Unavailable Unavailable Advance Directives Directive Yes / No Effective Date File Name No Information Encounters Encounter Description Practice Location Reason(s) For Visit Diagnoses Date Provider Providers Copied on Encounter Formerly [facility], [address], [place], [place], [id number], [place] tel:[phone] [facility] No Information Aug-0 8-200 2 Dickinson OD Kyler. [address] , [address], [place], [address], [place]. tel:[phone] Family History Family Member Type Diagnosis Age At Onset No Information Payers Payer name Insurance type Covered libertarian ID Authoriza tion(s) No Information Social History [...]
--- OUTSIDE RECORDS SUMMARY | 2025-04-02 07:48 | XMS_ITS | Clinical Summary ---
Author Organization [facility] Address [address] [place] [address] Care Team Providers Care Cinder Snapper Name Role Phone RosalindamyMelody king Primary Care Provider [phone] Allergies Active Allergy Reactions Criticality Noted Date Comments Lisinopril Anaphylaxis,Angioede Delma irving welling High 03/10/2024 Other Anaphylaxis High 03/12/2024 Chicken of the kovacs mushroom, Laetiporus spp. Medications levothyroxine (SYNTHROID, LEVOTHROID) 50 mcg tablet 08/09/20 18 Active aspirin 81 mg enteric coated tablet Take 1 tablet (81 mg total) by mouth daily Active ALPRAZolam (XANAX) 0.25 mg tablet Take by mouth 2 (two) times a day as needed 03/04/20 25 Active busPIRone (BUSPAR) 7.5 mg tablet Take 1 tablet (7.5 mg total) by mouth 2 (two) times a day 03/06/20 25 Active sertraline (ZOLOFT) 25 mg tablet Take 1 tablet (25 mg total) by mouth daily 02/27/20 25 Active doxazosin (CARDURA) 1 mg tablet Take 1 tablet (1 mg total) by mouth nightly 30 tablet 11 03/19/20 25 026 Active cloNIDine (CATAPRES) 0.2 mg tabletIndication s:Benign hypertension with chronic kidney disease, stage III (HCC) Take 1 tablet (0.2 mg total) by mouth 2 (two) times a day 180 tablet 3 03/27/20 25 Active hydroCHLOROthiaz wiliam (HYDRODIURIL) 25 mg tabletIndication s:Benign hypertension with chronic kidney disease, stage III (HCC) Take 1 tablet (25 mg total) by mouth every morning 90 tablet 3 03/27/20 25 Active hydrALAZINE (APRESOLINE) 100 mg tabletIndication s:hypertension Take 1 tablet (100 mg total) by mouth 2 (two) times a day 180 tablet 3 03/27/20 25 026 Active cloNIDine (CATAPRES) 0.1 mg tablet Take 1 tablet (0.1 mg total) by mouth 2 (two) times a day 025 Discontinued(Al ternate therapy) hydroCHLOROthiaz wiliam (HYDRODIURIL) 25 mg tablet Take 1 tablet (25 mg total) by mouth every morning 12/16/19 25 025 Discontinued(Re order) hydrALAZINE (APRESOLINE) 50 mg tablet Take 2 tablets (100 mg total) by mouth 2 (two) times a day 60 tablet 11 01/14/20 25 025 Discontinued cloNIDine (CATAPRES) 0.2 mg tablet Take 1 tablet (0.2 mg total) by mouth 2 (two) times a day 03/01/20 25 025 Discontinued(Re order) Active Problems Problem Noted Date Diagnosed Date Cardiovascular stress test abnormal 03/04/2025 Other chest pain 02/24/2025 Essential hypertension 01/13/2025 Chronic diastolic heart failure 01/13/2025 History of pulmonary embolism 01/13/2025 Encounters Date Type Department Care Team Description 03/27/2025 2:00 PM CDT Office Visit [facility] Medical Group Cardiology [address] [facility] [address] [place] [address] Cher Cervantes NP Benign hypertension with chronic kidney disease, stage III (HCC) (Primary Dx); False positive stress test 03/19/2025 10:00 AM CDT - 03/19/2025 11:30 AM CDT Surgery [facility] Cardiac Catheterization Lab [address] [place] [address] Luana Davenport MD LEFT HEART CATHETERIZATION WITH CORONARY ANGIOGRAPHY AND WITH OR WITHOUT LEFT VENTRICULOGRAM [id number] 03/19/2025 7:29 AM CDT - 03/19/2025 1:05 PM CDT Hospital Encounter [facility] Cardiac Catheterization Lab [address] [place] [address] Luana Davenport MD Cardiovascular stress test abnormal Discharge Disposition: Discharge to home or self care 03/11/2025 9:30 AM CDT Office Visit [facility] [address] [place] [address] [place] [phone] Cher Cervantes NP Cardiovascular stress test abnormal; Uncontrolled hypertension 03/05/2025 Telephone [place] [address] [place] [phone] Luana Davenport MD 03/04/2025 Results Follow-Up [place] [address] [place] [phone] Luana Davenport MD NM MPI SPECT (Rest and/or Stress) Multiple Studies 03/04/2025 Telephone [place] [address] [place] [phone] Luana Davenport MD 03/03/2025 7:45 AM CDT Ancillary Procedure [place] [address] [place] [phone] Other chest pain 02/27/2025 Telephone [place] [address] [place] [phone] Luana Davenport MD 02/25/2025 Telephone [place] [address] [place] [phone] Luana Davenport MD 02/24/2025 1:00 PM CDT Office Visit [place] [address] [place] [phone] Luana Davenport MD Essential hypertension (Primary Dx); Chronic diastolic heart failure (HCC); History of pulmonary embolism; Other chest pain 02/24/2025 Telephone [place] [address] [place] [phone] Luana Davenport MD 01/16/2025 Results Follow-Up [facility] Medical Group Cardiology [address] [place] [address] Luana Davenport MD Basic metabolic panel 01/14/2025 Orders Only [facility] Medical [facility] Cardiology [address] [facility] [address] [place] [address] Luana Davenport MD 01/13/2025 10:30 AM CDT Office Visit [facility] Medical Group Cardiology [address] [place] [address] Luana Davenport MD Essential hypertension (Primary Dx); Acute embolism and thrombosis of unspecified deep veins of lower extremity, bilateral (HCC); Chronic diastolic heart failure (HCC); History of pulmonary embolism from Last 3 Months Surgical History Surgery Date Site/Laterality Comments TOTAL HIP ARTHROPLASTY 08/03/2017 Right TOTAL HIP ARTHROPLASTY 04/07/2017 Left TONSILLECTOMY TUBAL LIGATION CARDIAC CATHETERIZATION 03/19/2025 N/A Procedure: LEFT HEART CATHETERIZATION WITH CORONARY ANGIOGRAPHY AND WITH OR WITHOUT LEFT VENTRICULOGRAM [id number]; Surgeon: Luana Davenport MD; Location: CARDIAC RESIN REMOVER; Service: Cardiovascular; Laterality: N/A; Medical devices from this surgery are in the Medical Devices section. Medical History Medical History Date Comments Hypercholesteremia Hypertension Diabetes mellitus (HCC) Arthritis Obesity Thyroid disease CHF (congestive heart failure) (HCC) Chronic kidney disease Cardiovascular stress test abnormal Chest pressure Hypothyroidism Type 2 diabetes mellitus (HCC) Family History Medical History Relation Name Comments No Known Problems Father COPD Mother [place] Emphysema Mother [place] Emphysema Sister Relation Name Status Comments Father Mother [place] Sister Social History Tobacco Use Types Packs/Day Years Used Date Smoking Tobacco: Every Day Cigarettes 0.5 5.4 Started: 2019 Smokeless Tobacco: Never Tobacco Cessation:Ready to Q uit: Not Asked; Counseling Given: Not Answered AUDIT-C Answer Date Recorded Q1: How often do you have a drink containing alcohol? Never 03/19/2025 Q2: How many drinks containi ng alcohol do you have on a typical day when you are drinking? Patient does not drink Q3: How often do you have si x or more drinks on one occasion? Never 03/19/2025 Personal Safety Answer Date Recorded Have you ever been in or are you currently in a harmful physical or emotional relationship or is someone making you feel afraid or unsafe? 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 Gender Identity Not on file Sexual Orientation Not on file Obstetrics History Last Filed Vital Signs Vital Sign Reading Time Taken Comments Blood Pressure 179/75 03/19/2025 12:35 PM CDT Pulse 57 03/19/2025 12:40 PM CDT Temperature 36.6 C (97.9 F) 03/19/2025 7:49 AM CDT Respiratory Rate 17 03/19/2025 7:49 AM CDT Oxygen Saturation 98% 03/19/2025 12:40 PM CDT Inhaled Oxygen Concentration - - Weight 85.7 kg (189 lb) 03/19/2025 7:55 AM CDT Height 167.6 cm (5' 6) 03/19/2025 7:55 AM CDT Body Mass Index 30.51 03/19/2025 7:55 AM CDT Plan of Treatment Health Maintenance Due Date Last Done Comments Breast Cancer Screening-Mammogram 1955 Colon Cancer Screening-Colonoscopy 1955 Depression Screening 1955 Hepatitis C Screening 1955 Osteoporosis Screening-Bone Density Scan 1955 Well Visit 65+ 2018 Covid-19 Vaccine (2023-2 5 season) 2024 09/10/2021, 01/19/2021, 12/29/2020 Influenza Vaccine (Season Ended) 2025 09/10/2021, 08/13/2019, 08/10/2018, Additional history exists DTaP/Tdap/Td Vaccine (3 - Td or Tdap) 12/18/2025 12/18/2015, 10/14/2005, 07/05/2000, Additional history exists Fall Risk Assessment 03/19/2026 03/19/2025 Hepatitis B Screening Completed 04/22/1992 , 11/20/1991, 10/21/1991 Zoster Vaccine Completed 06/08/2018, 040 02/2018, 07/15/2013 Pneumococcal vaccine 65+ Completed 08/13/2019, 03/2018 Medical Devices Implanted Type Area Solid Propellant Processor Device Identifier Shelf Expiration Date Model / Serial / Lot ChromaDex Device Closure Vascade Od5 Fr Femoral Artery [id number] - [id number] Implanted:Qty: 1 on 03/19/2025 by Luana Davenport MD at [facility] ChromaDex 09/17/2026 [id number] / / [id number] Procedures Procedure Name Priority Date/Time Associated Diagnosis Comments LEFT HEART CATHETERIZATION WITH CORONARY ANGIOGRAPHY AND WITH AND WITHOUT LEFT VENTRICULOGRAM Routine 03/19/2025 10:11 AM CDT Cardiovascular stress test abnormal MODERATE SEDATION FIRST 15MIN 5+ YEAR [id number] 03/19/2025 9:20 AM CDT Cardiovascular stress test abnormal MODERATE SEDATION SAME MD VIEIRA ADDL 15 MIN [id number] 03/19/2025 9:20 AM CDT Cardiovascular stress test abnormal EGFR STAT 03/19/2025 8:17 AM CDT DIFFERENTIAL AUTO STAT 03/19/2025 8:1 7 AM CDT CBC WITH AUTO DIFFERENTIAL STAT 03/19/2025 8:17 AM CDT BASIC METABOLIC PANEL STAT 03/19/2025 8:17 AM CDT POCT GLUCOSE DEVICE Routine 03/19/2025 7 :49 AM CDT NM MPI SPECT (REST AND/OR STRESS) MULTIPLE STUDIES Schedule Routine, Read Routine (OP Routine) 03/03/2025 9:07 AM CDT Other chest pain ELECTROCARDIOGRAM REPORT Routine 02/24/2025 1:44 PM CDT Chronic diastolic heart failure (HCC) Other chest pain BASIC METABOLIC PANEL Routine 01/14/2025 10:32 AM CDT POCT LIPID PANEL Routine 01/13/2025 11:52 AM CDT Essential hypertension from Last 3 Months Results * LEFT HEART CATHETERIZATION WITH CORONARY ANGIOGRAPHY AND WITH AND WITHOUT LEFT VENTRICULOGRAM (03/19/2025 10:11 AM CDT) Anatomical Region Laterality Modality X-Ray Angiograph y Narrative 03/19/2025 10:32 AM CDT CARDIAC CATHETERIZATION REPORT Jeanna Garcia IP ENCOUNTER: @CSN@ Date of Procedure: 03/19/2025 BIRTHDATE: 1955 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 Underwent stress testing that was positive for mixed ischemia and infarction. PROCEDURES PERFORMED: Moderate sedation that started at 9:30 a.m. and ended at 10:10 a.m. with total duration 40 minutes using 3mg of Versed and 75mcg of fentanyl. The registered nurse was ping choco Selective left and right coronary angiogram. Left heart catheterization with measurement of LVEDP and measure gradient across aortic valve. Right common femoral arterial angiogram. Deployment 5 Malian Vascade closure device. FINDINGS: Left main free of disease. Left anterior descending artery minimal irregularities. Gives rise to large diagonal branch that is free of disease. Left circumflex artery has minimal irregularities. RCA is large and dominant with diffuse 30% proximally and minimal irregularities. LVEDP was 15 mm Hg and no gradient across aortic valve. Opening pressure 175/64 closing pressure 179/44. Right common femoral arterial angiogram shows no significant disease in the right common femoral artery. COMPLICATIONS: None ESTIMATED BLOOD LOSS: 5 mL PROCEDURAL DESCRIPTION: After informed consent patient was brought into the laborer wrecking and salvaging where she was draped and prepped in the usual manner. Moderate sedation was given and the right groin infiltrated using 1% lidocaine. Five Malian sheath was obtained using micropuncture needle and modified Seldinger technique. Selective left coronary angiogram was done using JL4 catheter with the tip of the catheter placed in the left main coronary artery. Selective right coronary angiogram was done using JR4 catheter with the tip of the catheter placed in the right coronary artery. After that 5 Malian pigtail catheter was advanced across aortic valve into the left ventricular with measurement of LVEDP and measure gradient across aortic valve. Right common femoral arterial angiogram was done and deployed 5 Malian Vascade closure device. Access site: Right common femoral artery Hemostasis: 5 Malian Vascade closure device. CONCLUSIONS Minimal irregularities. 30% RCA. False-positive stress test. Elevated blood pressure PLAN Add doxazosin to control blood pressure. Optimize risk factor factor for CAD. Consider adding statin next visit. us Luana Davenport MD CV CARDIAC CATH PROC EDURES Final Result * (ABNORMAL) eGFR (03/19/2025 8:17 AM CDT) [facility] Signature eGFR 42(L) >=60 mL/min/1. 73 m2 Comment: Interpretive Data Reference Interval Normal >/= 90 mL/min/1.73m2 Mildly decreased* 60 - 89 mL/min/1.73m2 Mildly to moderately decreased 45 - 59 mL/min/1.73m2 Moderately to severely decreased 30 - 44 mL/min/1.73m2 Severely decreased 15 - 29 mL/min/1.73m2 Kidney Failure < 15 mL/min/1.73m2 *Relative to young adult level Estimated glomerular filtration rate is determined by the 2020 CKD-EPI equation recommended by the National Kidney Foundation (A Unifying Approach to GFR Estimation: Recommendations of the NKF-ASK Task Force on Reassessing the Inclusion of Race in Diagnosing Kidney Disease, JASN 202). The CKD-EPI equation should not be used for patients with unstable renal function and has not been validated in children and those over 70. Current interpretive data was last reviewed 2021. Blood 03/19/2025 8:17 AM CDT 03/19/2025 8:37 AM CDT us Luana Davenport MD LAB BLOOD ORDERABLES Final Result [facility] RODRIG[facility] [address] Department [place] [address] * Differential, auto (03/19/2025 8:17 AM CDT) Neutrophil abs 5.44 1.50 - 6.50 K/cumm Imm gran abs 0.02 0.00 - 0.10 K/cumm [facility] Lymphocyte abs 1.81 0.80 - 3.30 K/cumm [facility] Monocyte abs 0.35 0.20 - 0.80 K/cumm [facility] Eosinophil abs 0.10 0.00 - 0.50 K/cumm [facility] Basophil abs 0.05 0.00 - 0.10 K/cumm [facility] Neutrophil pct 70.0 % [facility] Comment: Interpretive Data Percent cell count reference ranges are not reported, since discordance with absolute values may lead to misinterpretation of CBC data. Current Interpretive Data was last revised on 2018. Imm gran pct 0.3 % [facility] Comment: Interpretive Data Percent cell count reference ranges are not reported, since discordance with absolute values may lead to misinterpretation of CBC data. Current Interpretive Data was last revised on 2018. Lymphocyte pct 23.3 % [facility] Comment: Interpretive Data Percent cell count reference ranges are not reported, since discordance with absolute values may lead to misinterpretation of CBC data. Current Interpretive Data was last revised on 2018. Monocyte pct 4.5 % [facility] Comment: Interpretive Data Percent cell count reference ranges are not reported, since discordance with absolute values may lead to misinterpretation of CBC data. Current Interpretive Data was last revised on 2018. Eosinophil pct 1.3 % [facility] Comment: Interpretive Data Percent cell count reference ranges are not reported, since discordance with absolute values may lead to misinterpretation of CBC data. Current Interpretive Data was last revised on 2018. Basophil pct 0.6 % [facility] Comment: Interpretive Data Percent cell count reference ranges are not reported, since discordance with absolute values may lead to misinterpretation of CBC data. Current Interpretive Data was last revised on 2018. Blood 03/19/2025 8:17 AM CDT 03/19/2025 8:37 AM CDT Luana Davenport MD LAB BLOOD ORDERABLES Final Result Performing Organization Address City/[facility]/ZIP Co de Phone Number ZEESHAN RODRIGUEZ [address] Department [place] [address] * (ABNORMAL) CBC with auto differential (03/19/2025 8:17 AM CDT) [facility] WBC 7.77 3.80 - 9.90 K/cumm Hgb 13.9 11.9 - 15.5 g/dL [facility] Hct 41.7 35.6 - 45.5 % [facility] Plt 309 150 - 400 K/cumm [facility] MPV 9.1 9.1 - 12.3 fL [facility] RBC 4.71 3.90 - 5.20 M/cumm [facility] CH MCV 88.5 81.3 - 96.[address] CH MCH 29.5 27.1 - 33.3 pg [facility] MCHC 33.3 32.3 - 35.7 g/dL [facility] RDW CV 14.8 11.1 - 14.9 % [facility] RDW SD 48.2(H) 35.7 - 48.1 fL [facility] NRBC abs 0.00 0.00 - 0.01 K/cumm [facility] Blood 03/19/2025 8:17 AM CDT 03/19/2025 8:37 AM CDT Narrative [facility] - 03/19/2025 8:41 AM CDT If most recent labs were drawn prior to 4 AM, draw only prior to initiating procedure. Luana Davenport MD LAB BLOOD ORDERABLES Final Result Performing Organization Address City/[facility]/ZIP Co de Phone Number ZEESHAN RODRIGUEZ [address] Department [place] [address] * (ABNORMAL) Basic metabolic panel (03/19/2025 8:17 AM CDT) [facility] Sodium 139 135 - 145 mmol/L Potassium, pl 4.2 3.3 - 4.9 mmol/L [facility] Chloride 102 97 - 110 mmol/L [facility] CO2 23 22 - 32 mmol/L [facility] Anion gap 14 2 - 15 mmol/L [facility] BUN 21 6 - 25 mg/dL [facility] Creatinine 1.35(H) 0.60 - 1.10 mg/dL [facility] Glucose 116 70 - 199 mg/dL [facility] Comment: Interpretive Data Fasting glucose >/= 126 mg/dl is diagnostic for diabetes. Fasting is defined as no caloric intake for at least 8 hours. Fasting glucose between 100 mg/dl to 125 mg/dl is diagnostic of prediabetes. In a patient with classic symptoms of hyperglycemia or hyperglycemic crisis, a random glucose >/= 200 mg/dl is diagnostic for diabetes. In the absence of unequivocal hyperglycemia, results should be confirmed by repeat testing. The classification and Diagnosis of Diabetes Diabetes Care 2021; 46: S19-S40. Current interpretive data was last revised 2022. Calcium 9.3 8.5 - 10.3 mg/dL [facility] Blood 03/19/2025 8:17 AM CDT 03/19/2025 8:37 AM CDT Luana Davenport MD LAB BLOOD ORDERABLES Final Result Performing Organization Address [facility] Co de Phone Number ZEESHAN RODRIGUEZ [address] [place] [address] * POCT glucose (03/19/2025 7:49 AM CDT) [facility] Signature Glucose, POC 119 70 - 199 mg/dL POC Performer [id number] [facility] Blood 03/19/2025 7:49 AM CDT 03/19/2025 7:49 AM CDT Luana Davenport MD LAB POCT ORDERABLES - DEVICE Final Result Performing Organization Address City/[facility] Co de Phone Number LUKEJUICE RODRIGUEZ [address] [place] [address] * NM MPI SPECT (Rest and/or Stress) Multiple Studies (03/03/2025 9:07 AM CDT) Anatomical Region Laterality Modality Body N/A Nuclear Medicine 03/03/2025 8:23 AM CDT Narrative 03/04/2025 8:08 AM CDT [facility] Medical Group Cardiology [address] [facility] [address], [place] [address] [facility] [address], [place] [address] P:[phone] P:[phone] MPI Imaging Report Patient Name: JEANNA GARCIA S : 1955 Study Date: 03/03/2025 8:23:54 AM Gender: F Tech: [facility] Location: [facility] Provider: LUANA DAVENPORT Height(Cm): 167.6 BSA: Weight(Kg): 88 BMI: 31.33 Order Provider: LUANA DAVENPORT PHYSICIAN: Referring Physician: Dr. Joshi. HCG Physician: Luana Davenport M.D., F.A.C.C. Interpreting Physician: Benson Barbour M.D.,F.A.C.C. Stress Supervision: Benson Barbour M.D.,F.A.C.C. PROCEDURES: Pharmacologic SPECT Report: Myocardial perfusion imaging with Tc99M Sestamibi SPECT at rest and stress post regadenoson (Lexiscan) infusion. INDICATIONS: Congestive Heart Failure, Hypertension, Family Hx CAD, High Cholesterol, Smoker, and R07.89 Other chest pain. FINDINGS: Procedural Findings: One day rest/stress was used. Tc99m Sestamibi injected IV at rest was 10.9 millicuries 32.3 millicuries of Tc99M Sestamibi injected IV during Lexiscan stress Lexiscan 0.4mg administered IV over 10 seconds. Patient had no symptoms during stress test. Baseline heart rate was 50 BPM Maximum Heart Rate Achieved was: 96 BPM Baseline blood pressure was 164/72 mmHg Post Stress Blood Pressure was 156/68 mmHg Termination: Protocol complete. Resting ECG: Normal sinus rhythm. Nonspecific ST-T abnormalities. Post EC mm or more horizontal inf/lat ST depression. Specificity of the observed ST changes is reduced in light of the abnormal resting ECG. Perfusion Findings: A TID of 0.85 was automatically calculated. defect 1: Size is medium. Severity is moderate. Location of defect is in the mid anterior segment and apical anterior segment. Reversibility is partial. Type of defect is ischemia. LV Function: Global left ventricular function is normal. Left ventricular ejection fraction is 70 %. CONCLUSIONS: Normal sinus rhythm Nonspecific ST-T abnormalities. 1 mm or more horizontal inf/lat ST depression. Specificity of the observed ST changes is reduced in light of the abnormal resting ECG. Global left ventricular function is normal. Left ventricular ejection fraction is 70 %. Size is medium. Severity is moderate. Location of defect is in the mid anterior segment and apical anterior segment. Reversibility is partial. Type of defect is ischemia. Electronically Signed By: Benson Barbour MD, [facility] 03/04/2025 7:20:44 AM CDT Electronically Signed By: Benson Barbour MD, [facility] 03/04/2025 7:20:44 AM CDT Procedure Note Benson Barbour MD - 03/04/2025 [facility] Medical Group Cardiology [address] [facility] [address] [id number] [facility] [address], [place] [address] P:[phone] P:[phone] MPI Imaging Report Patient Name: JEANNA GARCIA S : 1955 Study Date: 03/03/2025 8:23:54 AM Gender: F Tech: LAITH ROSALES Location: [facility] Provider: LUANA DAVENPORT Height(Cm): 167.6 BSA: Weight(Kg): 88 BMI: 31.33 Order Provider: LUANA DAVENPORT PHYSICIAN: Referring Physician: Dr. Joshi. HCG Physician: Luana Davenport M.D., Elyssa Interpreting Physician: Benson Barbour M.D.,Elyssa Stress Supervision: Benson Barbour M.D.,Dangelo. PROCEDURES: Pharmacologic SPECT Report: Myocardial perfusion imaging with Tc99M Sestamibi SPECT at rest and stresspost regadenoson (Lexiscan) infusion. INDICATIONS: Congestive Heart Failure, Hypertension, Family Hx CAD, High Cholesterol,Smoker, and R07.89 Other chest pain. FINDINGS: Procedural Findings: One day rest/stress was used. Tc99m Sestamibi injected IV at rest was 10.9 millicuries 32.3 millicuries of Tc99M Sestamibi injected IV during Lexiscan stress Lexiscan 0.4mg administered IV over 10 seconds. Patient had no symptoms during stress test. Baseline heart rate was 50 BPM Maximum Heart Rate Achieved was: 96 BPM Baseline blood pressure was 164/72 mmHg Post Stress Blood Pressure was 156/68 mmHg Termination: Protocol complete. Resting ECG: Normal sinus rhythm. Nonspecific ST-T abnormalities. Post EC mm or more horizontal inf/lat ST depression. Specificity of the observedST changes is reduced in light of the abnormal resting ECG. Perfusion Findings: A TID of 0.85 was automatically calculated. defect 1: Size is medium. Severity is moderate. Location of defect is in the midanterior segment and apical anterior segment. Reversibility is partial. Type of defect isischemia. LV Function: Global left ventricular function is normal. Left ventricular ejectionfraction is 70 %. CONCLUSIONS: Normal sinus rhythm Nonspecific ST-T abnormalities. 1 mm or more horizontal inf/lat ST depression. Specificity of the observedST changes is reduced in light of the abnormal resting ECG. Global left ventricular function is normal. Left ventricular ejectionfraction is 70 %. Size is medium. Severity is moderate. Location of defect is in the midanterior segment and apical anterior segment. Reversibility is partial. Type of defect isischemia. Electronically Signed By: Benson Barbour MD, [facility] 03/04/2025 7:20:44 AM CDT Electronically Signed By: Benson Barbour MD, [facility] 03/04/2025 7:20:44 AM CDT Luana Davenport MD IMG NM PROCEDURES Fi nal Result * Electrocardiogram Report (02/24/2025 1:44 PM CDT) us Luana Davenport MD ECG ORDERABLES Raine l Result * (ABNORMAL) Basic metabolic panel (01/14/2025 10:32 AM CDT) [facility] Glucose 131(H) 70 - 99 mg/dL [facility] [...] - 01/15/2025 1:07 AM CDT Performed at: [address] [place] [id number] Career And Guidance Counselor: Alexi Cali PhD, Phone: [phone] Luana Davenport MD LAB BLOOD ORDERABLES Final Result [facility] - 01 * POCT lipid panel (01/13/2025 11:52 AM CDT) Cholesterol, POC 172 mg/dL Comment:GLU = 151 HDL, POC 25 mg/dL Triglycerides, POC 203 mg/dL LDL Cholesterol POC 106 mg/dL Chol/HDL Ratio, POC 4.2 Non-HDL Cholesterol, POC 147 mg/dL Cholesterol Total, POC 172 mg/dL Capillary blood 01/13/2025 1 1:52 AM CDT Luana Davenport MD POINT OF CARE TEST O RDERABLES Final Result from Last 3 Months Insurance [facility] MEDICARE ADVANTAGE [facility] MEDIC[facility] ADVANTAGE Care Teams Cinder Snapper Relationship Specialty Start Date End Date Melody Joshi DO PCP - General Family Medicine 12/23/21
--- OUTSIDE RECORDS SUMMARY | 2025-04-02 07:48 | XMS_ITS | Referral Summary ---
Author Organization [facility] Address [address] [place] [address] Care Team Providers Care Tool Adjuster Name Role Phone Melody Joshi DO Primary Care Provider +1- [phone] Encounters Date Type Department Care Team Description 03/27/2025 2:00 PM CDT Office Visit [facility] [address] [place] [address] [place] [phone] Cher Cervantes NP Benign hypertension with chronic kidney disease, stage III (HCC) (Primary Dx); False positive stress test 03/19/2025 10:00 AM CDT - 03/19/2025 11:30 AM CDT Surgery [facility] Cardiac Catheterization Lab [address] [place] [id number] Luana Davenport MD LEFT HEART CATHETERIZATION WITH CORONARY ANGIOGRAPHY AND WITH OR WITHOUT LEFT VENTRICULOGRAM [id number] 03/19/2025 7:29 AM CDT - 03/19/2025 1:05 PM CDT Hospital Encounter [facility] Cardiac [facility]atheterization Lab [address] [place] [address] Luana Davenport MD Cardiovascular stress test abnormal Discharge Disposition: Discharge to home or self care 03/11/2025 9:30 AM CDT Office Visit [facility] [address] [place] [phone] Cher Cervantes NP Cardiovascular stress test abnormal; Uncontrolled hypertension 03/05/2025 Telephone [facility] [address] [place] [phone] Luana Davenport MD 03/04/2025 Results Follow-Up [facility] [address] [place] [address] [place] [phone] Luana Davenport MD NM MPI SPECT (Rest and/or Stress) Multiple Studies 03/04/2025 Telephone [facility] [address] [place] [address] [place] [phone] Luana Davenport MD 03/03/2025 7:45 AM CDT Ancillary Procedure [facility] [address] [place] [address] [place] [phone] Other chest pain 02/27/2025 Telephone [facility] [address] [place] [address] [place] [phone] Luana Davenport MD 02/25/2025 Telephone [facility] [address] [place] [address] [place] [phone] Luana Davenport MD 02/24/2025 Telephone [facility] [address] [place] [address] [place] [phone] Luana Davenport MD 02/24/2025 1:00 PM CDT Office Visit [facility] [address] [place] [address] [place] [phone] Luana Davenport MD Essential hypertension (Primary Dx); Chronic diastolic heart failure (HCC); History of pulmonary embolism; Other chest pain 01/16/2025 Results Follow-Up [facility] [address] [place] [address] [place] [phone] Luana Davenport MD Basic metabolic panel 01/14/2025 Orders Only [facility] [address] [facility] [address] [place] [phone] Luana Davenport MD 01/13/2025 10:30 AM CDT Office Visit [facility] Cardiology [address] [place] [address] Luana Davenport MD Essential hypertension (Primary Dx); Acute embolism and thrombosis of unspecified deep veins of lower extremity, bilateral (HCC); Chronic diastolic heart failure (HCC); History of pulmonary embolism from Last 3 Months Allergies Active Allergy Reactions Criticality Noted Date Comments Lisinopril Anaphylaxis,AngioDelma collins ma welling High 03/10/2024 Other Anaphylaxis High 03/12/2024 [...] times a day 60 tablet 11 01/14/20 025 Discontinued cloNIDine (CATAPRES) 0.2 mg tablet Take 1 tablet (0.2 mg total) by mouth 2 (two) times a day 03/01/20 025 Discontinued(Re order) Active Problems Problem Noted [...] on file 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 09/17/2026 [id number] / / [id number] Procedures Procedure Name Priority Date/Time Associated Diagnosis Comments LEFT HEART CATHETERIZATION WITH CORONARY ANGIOGRAPHY AND WITH AND WITHOUT LEFT VENTRICULOGRAM Routine 03/19/2025 10:11 AM CDT Cardiovascular stress test abnormal MODERATE SEDATION FIRST 15MIN 5+ YEAR [address] 03/19/2025 9:20 AM CDT Cardiovascular stress test abnormal MODERATE SEDATION SAME MD VIEIRA ADDL 15 MIN [address]28 03/19/2025 9:20 AM CDT Cardiovascular stress test [...] @CSN@ Date of Procedure: 03/19/2025 BIRTHDATE: 1955 MENTAL HEALTH CONSULTANT: Luana Davenport MD PREPROCEDURE DIAGNOSES: This 69-year-old [...] Right common femoral arterial angiogram. Deployment 5 Slovenian Vascade closure device. FINDINGS: Left main free [...] informed consent patient was brought into the microbiology lab technician where she was draped and prepped in the usual manner. Moderate sedation was given and the right groin infiltrated using 1% lidocaine. Five Slovenian sheath was obtained using micropuncture needle and modified Seldinger technique. Selective left coronary angiogram was done using JL4 catheter with the tip of the catheter placed in the left main coronary artery. Selective right coronary angiogram was done using JR4 catheter with the tip of the catheter placed in the right coronary artery. After that 5 Slovenian pigtail catheter was advanced across aortic valve into the left ventricular with measurement of LVEDP and measure gradient across aortic valve. Right common femoral arterial angiogram was done and deployed 5 Slovenian Vascade closure device. Access site: Right common femoral artery Hemostasis: 5 Slovenian Vascade closure device. CONCLUSIONS Minimal irregularities. 30% RCA. False-positive stress test. Elevated blood pressure PLAN Add doxazosin to control blood pressure. Optimize risk factor factor for CAD. Consider adding statin next visit. Luana Davenport MD CV CARDIAC CATH PROC EDURES Final Result * (ABNORMAL) eGFR (03/19/2025 8:17 AM CDT) eGFR 42(L) >=60 mL/min/1. 73 m2 Comment: [...] of Race in Diagnosing Kidney Disease, JASN 2020). The CKD-EPI equation should not be used for patients with unstable renal function and has not been validated in children and those over 70. Current interpretive data was last reviewed 2021. Blood 03/19/2025 8:17 AM CDT 03/19/2025 8:37 AM CDT us Luana Davenport MD LAB BLOOD ORDERABLES Final Result ZEESHAN [address] [facility] [place] [address] * Differential, auto (03/19/2025 8:17 AM CDT) Neutrophil abs 5.44 1.50 - 6.50 K/cumm Imm gran abs 0.02 0.00 - 0.10 K/cumm [facility] Lymphocyte abs 1.81 0.80 - 3.30 K/cumm [facility] Monocyte abs 0.35 0.20 - 0.80 K/cumm [facility] Eosinophil abs 0.10 0.00 - 0.50 K/cumm [facility] Basophil abs 0.05 0.00 - 0.10 K/cumm [facility] Neutrophil pct 70.0 % [facility] Comment: Interpretive Data Percent cell count reference ranges are not reported, since discordance with absolute values may lead to misinterpretation of CBC data. Current Interpretive Data was last revised on 2018. Imm gran pct 0.3 % [facility] Comment: Interpretive Data Percent cell count reference ranges are not reported, since discordance with absolute values may lead to misinterpretation of CBC data. Current Interpretive Data was last revised on 2018. Lymphocyte pct 23.3 % [facility] Comment: Interpretive Data Percent cell count reference ranges are not reported, since discordance with absolute values may lead to misinterpretation of CBC data. Current Interpretive Data was last revised on 2018. Monocyte pct 4.5 % [facility] Comment: Interpretive Data Percent cell count reference ranges are not reported, since discordance with absolute values may lead to misinterpretation of CBC data. Current Interpretive Data was last revised on 2018. Eosinophil pct 1.3 % [facility] Comment: Interpretive Data Percent cell count reference ranges are not reported, since discordance with absolute values may lead to misinterpretation of CBC data. Current Interpretive Data was last revised on 2018. Basophil pct 0.6 % [facility] Comment: Interpretive Data Percent cell count reference ranges are not reported, since discordance with absolute values may lead to misinterpretation of CBC data. Current Interpretive Data was last revised on 2018. Blood 03/19/2025 8:17 AM CDT 03/19/2025 8:37 AM CDT Luana Davenport MD LAB BLOOD ORDERABLES Final Result Performing Organization Address City/[facility]/ZIP Co de Phone Number ZEESHAN [address] [employer] [place], [place] [phone] * (ABNORMAL) CBC with auto differential (03/19/2025 8:17 AM CDT) WBC 7.77 3.80 - 9.90 K/cumm Hgb 13.9 11.9 - 15.5 g/dL [facility] Hct 41.7 35.6 - 45.5 % [facility] Plt 309 150 - 400 K/cumm [facility] MPV 9.1 9.1 - 12.3 fL [facility] RBC 4.71 3.90 - 5.20 M/cumm [facility] MCV 88.5 81.3 - 96.4 fL [facility] MCH 29.5 27.1 - 33.3 pg [facility] MCHC 33.3 32.3 - 35.7 g/dL [facility] RDW CV 14.8 11.1 - 14.9 % [facility] RDW SD 48.2(H) 35.7 - 48.1 fL [facility] NRBC abs 0.00 0.00 - 0.01 K/cumm [facility] Blood 03/19/2025 8:17 AM CDT 03/19/2025 8:37 AM CDT Narrative [facility] - 03/19/2025 8:41 AM CDT If most recent labs were drawn prior to 4 AM, draw only prior to initiating procedure. Luana Davenport MD LAB BLOOD ORDERABLES Final Result Performing Organization Address City/[facility]/ZIP Co de Phone Number ZEESHAN RODRIGUEZ [address] [email or web address] [place], [place] [phone] * (ABNORMAL) Basic metabolic panel (03/19/2025 8:17 AM CDT) Sodium 139 135 - 145 mmol/L Potassium, pl 4.2 3.3 - 4.9 mmol/L [facility] Chloride 102 97 - 110 mmol/L [facility] CO2 23 22 - 32 mmol/L [facility] Anion gap 14 2 - 15 mmol/L [facility] BUN 21 6 - 25 mg/dL [facility] Creatinine 1.35(H) 0.60 - 1.10 mg/dL [facility] Glucose 116 70 - 199 mg/dL [facility] Comment: Interpretive Data Fasting glucose >/= 126 [...] 2022. Calcium 9.3 8.5 - 10.3 mg/dL [facility] Blood 03/19/2025 8:17 AM CDT 03/19/2025 8:37 AM CDT Luana Davenport MD LAB BLOOD ORDERABLES Final Result Performing Organization Address City/[facility] Co de Phone Number ZEESHAN RODRIGUEZ [address] [address] [employer] [place] [address] * POCT glucose (03/19/2025 7:49 AM CDT) [facility] Glucose, POC 119 70 - 199 mg/dL POC Performer [phone] [facility] Blood 03/19/2025 7:49 AM CDT 03/19/2025 7:49 AM CDT Luana Davenport MD LAB POCT ORDERABLES - DEVICE Final Result Performing Organization Address [facility] Co de Phone Number ZEESHAN RODRIGUEZ [address] [address] [place] [email or web address] [place] [address] * NM MPI SPECT (Rest and/or Stress) Multiple Studies (03/03/2025 9:07 AM CDT) Anatomical Region Laterality Modality Body N/A Nuclear Medicine 03/03/2025 8:23 AM CDT Narrative 03/04/2025 8:08 AM CDT [facility] Cardiology [address] [facility] [address], [place] [address] [address] [facility] [address], [place] [address] P:[phone] P:[phone] MPI Imaging Report Patient Name: JEANNA GARCIA S : 1955 Study Date: 03/03/2025 8:23:54 AM Gender: F Tech: LAITH ROSALES Location: [facility] Provider: LUANA DAVENPORT Height(Cm): 167.6 BSA: Weight(Kg): [...] ischemia. Electronically Signed By: Benson Barbour MD, [facility] 03/04/2025 7:20:44 AM CDT Electronically Signed By: Benson Barbour MD, [facility] 03/04/2025 7:20:44 AM CDT Procedure Note Benson Barbour MD - 03/04/2025 [facility] Medical [facility] Cardiology [address] [facility] [address], [place] [address] [address] [facility] [address], [place] [address] P:[phone] P:[phone] MPI Imaging Report Patient Name: JEANNA GARCIA S : 1955 Study Date: 03/03/2025 8:23:54 AM Gender: F Tech: LAITH ROSALES Location: [facility] Provider: BELINDA LUANA Height(Cm): 167.6 BSA: Weight(Kg): 88 BMI: 31.33 Order Provider: RAMÍREZ DAVENPORTYuly PHYSICIAN: Referring Physician: Dr. Joshi. HCG Physician: [...] isischemia. Electronically Signed By: Benson Barbour MD, [facility] 03/04/2025 7:20:44 AM CDT Electronically Signed By: Benson Barbour MD, [facility] 03/04/2025 7:20:44 AM CDT Luana Davenport MD IMG NM PROCEDURES Fi nal Result * Electrocardiogram Report (02/24/2025 1:44 PM CDT) Luana Davenport MD ECG ORDERABLES Raine l Result * (ABNORMAL) Basic metabolic panel (01/14/2025 10:32 AM CDT) [facility] Glucose 131(H) 70 - 99 mg/dL [facility] [...] 1:07 AM CDT Performed at: 01 - [facility] [address] [id number] Title Officer: Alexi Cali PhD, Phone: [phone] Luana Davenport MD LAB BLOOD ORDERABLES Final [...] Final Result from Last 3 Months Insurance [facility] MEDICARE ADVANTAGE [facility] MED[employer] ADVANTAGE Care Teams Tool Adjuster Relationship Specialty Start Date End Date Melody Joshi DO PCP - General Family Medicine 12/23/21
--- OUTSIDE RECORDS SUMMARY | 2025-04-02 07:48 | XMS_ITS | Patient Health Record ---
Author Organization [facility] [employer] [place] ([address]) Address [address] [place] [address] Care Team Providers Care Triage Specialist Name Role Phone Adi Melody Primary Care Provider UnavailTamara Johnson Unavailable [phone] [employer], Provider Unavailable Unavailab le Allergies Allergen (clinical drug ingredient) Drug/Non Drug Allergy documented on EMR Reaction Allergy Type Onset Date Status Lisinopril angioedema Drug Allergy Activ e Results Component Value Reference Range Notes -F212 Mushroom Reviewed date:04/08/2024 02:28:54 PM Interpretation:Normal Performing Lab:[facility] [address] [id number], Phone - [phone], Director - Fabian Notes/Report: or for research. clinical purposes. These should not be regarded as investigational clearance or approval is not necessary. These tests are used for Food and Drug Administration. The FDA has determined that such [facility]. These tests have not been cleared or approved by the [place]. were developed and had performance characteristics determined by Test(s) [id number] Mushroom Z421-IbA Mushroom <0.10 Class 0 kU/L Levels of Specific IgE Class Description of Class ----- < 0.10 0 Negative 0.10 - 0.31 0/I Equivocal/Low 0.32 - 0.55 I Low 0.56 - 1.40 II Moderate 1.41 - 3.90 III High 3.91 - 19.00 IV Very High 19.01 - 100.00 V Very High >100.00 Very High -Complement C1q, Quantitativ e Reviewed date:04/10/2024 11:59:11 AM Interpretation:Normal Performing Lab:[facility] [place], [address] [place] [id number], Phone - [phone], Director - Fabian Notes/Report: Complement C1q, Quantitative 13.5 10.3-20.5 mg /dL -Sedimentation Rate-Westergr en Reviewed date:04/08/2024 02:28:29 PM Interpretation:Normal Performing Lab:[facility] [id number], Phone - [phone], Director - Dane Notes/Report: Sedimentation Rate-Westergren 11 0-40 mm/hr -CBC With Differential/Plate let Reviewed date:04/08/2024 02:28:21 PM Interpretation:Abnormal Performing Lab:[facility] [id number], Phone - [phone], Director - Dane Notes/Report: WBC 7.1 3.4-10.8 x10E3/uL RBC 3.60 [...] Total Reviewed date:04/08/2024 02:28:01 PM Interpretation:Normal Performing Lab:[facility] [address] [id number], Phone - [phone], Director - Fabian Notes/Report: Test(s) [id number] Mushroom were developed and had performance characteristics determined by [facility]. These tests have not been cleared or approved by the U.S. Food and Drug Administration. The FDA has determined that such clearance or approval is not necessary. These tests are used for clinical purposes. These should not be regarded as investigational or for research. Immunoglobulin E, Total 4 6-495 IU/mL -Complement C4, Serum Reviewed date:04/08/2024 02:28:45 PM Interpretation:Normal [facility]forming [facility] [id number], Phone - [phone], Director - Dane Notes/Report: Complement C4, Serum 32 12-38 mg/dL Reason For Referral No Information Medications Medication [...] W/U Status Risk Notes Problem Food allergy (050907531) Allergy to other foods (Z91.018) Active confirmed Problem Allergy status to other drugs, medicaments and biological substances (Z88.8) Active confirmed Vital Signs Blood pressure diastolic 67 mm Hg 04/02/2024 Oximetry 99 % 04/02/2024 Height 66 in 04/02/2024 Blood pressure systolic 178 mm Hg 04/02/2024 Weight 180.0 lbs 04/02/2024 BMI 29.05 kg/m2 04/02/2024 Encounters Encounter Location Date Provider Diagnosis [address] [address] 04/20/2024 Provider Christina Angioneurotic edema, initial encounter T78.3XXA [address] [address] 04/02/2024 Tamara He Angioneurotic edema, initial encounter T78.3XXA ; Allergy status to other drugs, medicaments and biological substances Z88.8 and Allergy to other foods Z91.[address] [address] 04/02/2024 Tamara He [address] [address] 04/06/2024 Tamara He Assessments Encounter Date Diagnosis (ICD Code) Assessment Notes Treatment Notes Treatment Clinical Notes Section Notes 04/02/2024 Angioneurotic edema, initial encounter (ICD-10 - T78.3XXA) Labs requested from [facility]. Considerations include hereditary angioedema, idiopathic, food or KAYLEY induced angioedema. Since she has been taking lisinopril for many years, less likely the cause but needs to be avoided. We discussed that food allergies normally occur within 24 hours of eating the food. Labs ordered as above for further evaluation. C1 esterase functional assay was requested from [facility]. She does not take NSAIDS. For now, [...] Coverage End Date [employer] Medicare [address] [address] [place] [address] [id number] Suyapa Garcia Self - patient is the insured 4 Medical (General) History Medical History History ICD Code Hypertension Hyperlipidemia Hypothyroidism Surgical History Surgery Date(Month/Year) bilateral hip replacement 2017 Hospitalization History Reason Date(Month/Year) [facility] 03/10/2024
--- OUTSIDE RECORDS SUMMARY | 2025-04-02 07:48 | XMS_ITS | Encounter Summary ---
Author Organization [facility] Address [address] [place] [address] Care Team Providers Care Strategic Planning Director Name Role Phone Melody Joshi DO Primary Care Provider +1- [phone] Encounter Details Date Type Department Care Team (Late st Contact Info) Description 03/04/2025 Results Follow-Up [facility] Cardiology [address] [place] [address] Nadya Davenport MD [address] [id number] [place] MPI SPECT (Rest and/or Stress) Multiple Studies Social History Tobacco Use Types Packs/Day Years Used Date Smoking Tobacco: Every Day Cigarettes 0.5 5.4 Started: 2019 Smokeless Tobacco: Never Comments Unknown Sex and Gender Information Value Date Recorded Sex Assigned at Not on file 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
--- OUTSIDE RECORDS SUMMARY | 2025-04-02 07:48 | XMS_ITS | Encounter Summary ---
Author Organization [facility] Healthcare Address [address] [place] [address] Care Team Providers Care Cattle Knocker Name Role Phone Melody Joshi DO Primary Care Provider [phone] Encounter Details Date Type Department Care Team (Late st Contact Info) Description 03/05/2025 Telephone [facility] Medical Group Cardiology [address] [place] [address] Nadya Davenport MD [address] [address] Social History Tobacco Use Types Packs/Day Years Used Date Smoking Tobacco: Every Day Cigarettes 0.5 5.4 Started: 2020 Smokeless Tobacco: Never Comments Unknown Sex and Gender Information Value Date Recorded Sex Assigned at Not on file 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 * Telephone Encounter - Paola Son - 03/05/2025 4:22 PM CDT Pt requesting stress test results be faxed to Dr. Joshi office (PCP). Pt does not know their fax number. Thank you. Contact: documented in this encounter Plan of Treatment Not on file documented as of this encounter Visit Diagnoses Not on filedocumented in this encounter Care Teams Cattle Knocker Relationship Specialty Start Date End Date Melody Joshi DO PCP - General Family Medicine 12/23/21 documented as of this encounter
--- OUTSIDE RECORDS SUMMARY | 2025-04-02 07:48 | XMS_ITS | Clinical Summary ---
[facility] Organization [facility] Address [address] [place] [address] Care Team Providers Care Telephone Recorder Name Role Phone Melody Joshi DO Primary Care Provider [phone]- [phone] Allergies Active Allergy Reactions Criticality Noted Date [...] Encounters Date Type Department Care Team Description 04/01/2025 External Device Data ST[facility] ABSTRACTION Provider, Abstract 03/27/2025 External Device Data [facility] ABSTRACTION Provider, Abstract 03/26/2025 External Device Data [facility] ABSTRACTION Provider, Abstract 03/25/2025 External Device Data [facility] ABSTRACTION Provider, Abstract 01/22/2025 External Device Data [facility] ABSTRACTION Provider, [...] on file Legal Sex Female 4:48 AM MERINGUER Gender Identity Not on file Sexual Orientation [...] 10:17 AM CDT Height 167.6 cm (5' 6) 05/06/2024 10:17 AM CDT Body Mass Index [...] (1 - 1-dose 75+ series) 2028 Insurance [facility] [id number] Care Teams Telephone Recorder Relationship Specialty Start Date End Date Melody Joshi DO [address] [place] [id number] PCP - General Family Practice 04/09/24
--- OUTSIDE RECORDS SUMMARY | 2025-04-02 07:49 | XMS_ITS | Clinical Summary ---
Author Organization [facility] Address [address] [place] [address] Care Team Providers Care Public Relations Writer Name Role Phone Hever Mendez MD Primary Care Provider [phone] Source Comments [email or web address],non-owned Affiliates and Associated Physician Practices is amultiple site organization consisting of ambulatory clinics and hospital sitesin [place], [place], [place] and [place]. This disclosure is being madepursuant to the Care Everywhere program and may not contain all information available regarding this patient. Last updated 18.[email or web address] Social History Tobacco Use Types Packs/Day Years Used Date Smoking Tobacco: Never Assessed Comments Unknown Sex and Gender Information Value Date Recorded Sex Assigned at Not on file Legal Sex Female 7:00 AM BUSINESS MGR Gender Identity Not on file Sexual Orientation [...] complete this topic Insurance MEDICARE Care Teams Public Relations Writer Relationship Specialty Start Date End Date Hever Mendez MD [address] [place] [id number] PCP - General 01/10/19
--- OUTSIDE RECORDS SUMMARY | 2025-04-02 07:49 | XMS_ITS ---
Author Organization [facility] [place] ([address]) Address [address] [place] [address] Care Team Providers Care Final Inspector Motorcyles Name Role Phone Rosalindamychristine Melody Primary Care Provider Unavailabl e Tamara He Unavailable [phone] [employer], Provider Unavailable Unavailab le Allergies Allergen (clinical drug ingredient) Drug/Non Drug Allergy documented on EMR Reaction Allergy Type Onset Date Status Lisinopril angioedema Drug Allergy Activ e REASON FOR VISIT [facility] Conversion Encounter Medications Medication SIG (Take, [...] Encounters Encounter Location Date Provider Diagnosis [address]RAIN [address] [address] 04/20/2024 Provider Christina Angioneurotic edema, initial encounter [...] Notes * Suyapa GARCIADOB:1955 (69 yo F)Acc No.[id number]:04/20/2024 Patient: Suyapa VALDEZ Provider: Digna Forte :1955 A ge:68 Y S ex:Female Date:04/20/2024 Address:[address] [place] [address], [id number] Pcp:Melody Joshi Subjective: * Chief Complaints: * [facility] * Medical History: * Medications: [...] * Electronic signature of Alonso JEAN-Jann on 04/02/2025 at 07:48 AM CDT Sign off status: Pending * Provider: Digna Forte Date: 0 04/20/2024 Generated for Samy rivera/Guera/Amandaitting on: 0 04/02/2025 07:48 AM CDT
[2025-04-02 08:04] LABS: Estimated Glomerular Filt Rate 30
== END 2025-04-02 07:45 | disposition home or self-care (01) ==
PROVIDERS: PCP Family Medicine; Visit Provider Family Medicine
DX: R91.1 Solitary pulmonary nodule (principal)
CPT/HCPCS: 71260; Q9967

== ENCOUNTER 2025-04-23 09:54 | Outpatient (CLI) | payer MEDICARE, SELFPAY ==
--- NOTE | ~2025-04-23 | XR_ITS ---
COMPLETE BONE SURVEY Ordering provider: Darrion Manning MD History: 69 years Female with . plasma cell disorder . Comparison: FINDINGS: Standard bone survey for multiple myeloma was performed with images of the spine, lower and upper extremities as well as the chest and skull. BONES: No bony lytic or sclerotic lesions of the imaged osseous structures are identified. Sclerotic area in the proximal right humerus and distal right femur which may be bone infarct versus cartilaginous lesion. Follow-up advised. JOINT SPACES: Well maintained. Bilateral hip arthroplasty. Multilevel degenerative disc disease in the cervical, thoracic and lumbar spine. Degenerative changes of the thoracic and lumbar spine. Dextroscoliosis in the lumbar spine. SOFT TISSUES: Atherosclerotic changes of the thoracic and abdominal aorta. IMPRESSION: 1. No radiographic findings of multiple myeloma. 2. Chronic findings as discussed above. 3. Sclerotic areas in the proximal right humerus and distal right femur which may be bone infarct ve rsus cartilaginous lesions. Follow-up advised. Reviewed, dictated and finalized at location A. IMPRESSION: 1. No radiographic findings of multiple myeloma. 2. Chronic findings as discussed above. 3. Sclerotic areas in the proximal right humerus and distal right femur which may be bone infarct versus cartilaginous lesions. Follow-up advised.
--- OUTSIDE RECORDS SUMMARY | 2025-04-23 11:11 | XMS_ITS | Encounter Summary ---
Author Organization [facility] Healthcare Address [address] [place] [address] Care Team Providers Care Direct Support Professional Name Role Phone Melody Joshi DO Primary Care Provider [phone]- [phone] Encounter Details Date Type Department Care Team (Late st Contact Info) Description 03/04/2025 Results Follow-Up 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
--- OUTSIDE RECORDS SUMMARY | 2025-04-23 11:11 | XMS_ITS | Continuity of Care Document ---
Author Organization [facility] Address [address] [place] [address] Phone Care Team Providers Care Fire Technology Instructor Name Role Phone Dickinson OD, Kyler Unavailable Unavailable Advance Directives Directive Yes / No Effective Date File Name No Information Encounters Encounter Description Practice Location Reason(s) For Visit Diagnoses Date Provider Providers Copied on Encounter [facility], [address], [place], [place], [id number], [place] tel:[phone] [facility] No Information Aug-0 8-200 2 Dickinson OD Kyler. [address] , [address], [place], [address], [place]. tel:[phone] Family History Family Member Type Diagnosis Age At Onset No Information Payers Payer name Insurance type Covered constitution party ID Authoriza tion(s) No Information Social History [...]
--- OUTSIDE RECORDS SUMMARY | 2025-04-23 11:11 | XMS_ITS | Clinical Summary ---
Author Organization [facility] Address [address] [facility] [place] [address] Care Team Providers Care Sales Support Administrator Name Role Phone Hever Mendez MD Primary Care Provider Source Comments [facility],non-owned Affiliates and Associated Physician Practices is amultiple site organization consisting of ambulatory clinics and hospital sitesin [place], [place], [place] and [place]. This disclosure is being madepursuant to the Care Everywhere program and may not contain all information available regarding this patient. 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
--- OUTSIDE RECORDS SUMMARY | 2025-04-23 11:11 | XMS_ITS ---
Author Organization [facility] [employer] [place] ([address]) Address [address] [place] [address] Care Team Providers Care Redevelopment Specialist Name Role Phone Rosalindamychristine Melody Primary Care Provider Unavailabl Tamara Evans Unavailable [phone] [employer], Provider Unavailable Unavailab le Allergies Allergen (clinical drug ingredient) Drug/Non Drug Allergy documented on EMR Reaction Allergy Type Onset Date Status lisinopril Lisinopril angioedema Drug Allergy Acti ve REASON FOR VISIT [facility] To [facility] Conversion Encounter Medications Medication SIG (Take, Route, [...] Encounters Encounter Location Date Provider Diagnosis BRAIN [address] [address] 04/20/2024 Provider Christina Angioneurotic edema, initial encounter [...] for 1 dose(s) 04/02/2024 Progress Notes * FLORA LeannesirishaDOB:1955 (69 yo F)Acc No.[id number]:04/20/2024 Patient: Suyapa VALDEZ Provider: Digna Forte :1955 A ge:68 Y S ex:Female Date:04/20/2024 Address:[address] [place], [place] [id number] Pcp:Melody Joshi Subjective: * Chief Complaints: * [...] * Electronic signature of Alonso Vasquez on 04/23/2025 at 11:11 AM CDT Sign off status: Pending * Provider: Digna choudhary Migration Date: 0 04/20/2024 Generated for Samy rivera/Guera/Amandaitting on: 0 04/23/2025 11:11 AM CDT
--- OUTSIDE RECORDS SUMMARY | 2025-04-23 11:11 | XMS_ITS | Clinical Summary ---
Author Organization [facility] Address [address] [place] [address] Care Team Providers Care Garden Labourer Name Role Phone RosalindamyMelody king Primary Care Provider +1- [phone] Allergies Active Allergy Reactions Criticality Noted Date [...] 180 tablet 3 03/27/20 25 026 Active hydroCHLOROthiaz wiliam (HYDRODIURIL) 25 mg tablet Take [...] Description 03/27/2025 2:00 PM CDT Office Visit [facility] Cardiology [address] [facility] [address] [place] [address] Cher Cervantes NP Benign hypertension with chronic kidney disease, stage III (HCC) (Primary Dx); False positive stress test 03/19/2025 10:00 AM CDT - 03/19/2025 11:30 AM CDT Surgery [facility] Cardiac Catheterization Lab [address] [place] [address] Luana Davenport MD LEFT HEART CATHETERIZATION WITH CORONARY ANGIOGRAPHY AND WITH OR WITHOUT LEFT VENTRICULOGRAM [id number] 03/19/2025 7:29 AM CDT - 03/19/2025 1:05 PM CDT Hospital Encounter [facility] Cardiac Catheterization Lab [address] [place] [address] Luana Davenport MD Cardiovascular stress test abnormal Discharge Disposition: Discharge to home or self care 03/11/2025 9:30 AM CDT Office Visit [place] [address] [place] [phone] Cher Cervantes NP Cardiovascular stress test abnormal; Uncontrolled hypertension 03/05/2025 Telephone [place] [address] [place] [address] Luana Davenport MD 03/04/2025 Results Follow-Up [place] [address] [place] [address] Luana Davenport MD NM MPI SPECT (Rest and/or Stress) Multiple Studies 03/04/2025 Telephone [place] [address] [place] [address] Luana Davenport MD 03/03/2025 7:45 AM CDT Ancillary Procedure [place] [address] [place] [phone] Other chest pain 02/27/2025 Telephone [place] [address] [place] [phone] Luana Davenport MD 02/25/2025 Telephone [place] [address] [place] [address] Luana Davenport MD 02/24/2025 1:00 PM CDT Office Visit [place] [address] [place] [phone] Luana Davenport MD Essential hypertension (Primary Dx); Chronic diastolic heart failure (HCC); History of pulmonary embolism; Other chest pain 02/24/2025 Telephone [place] [address] [place] [phone] Luana Davenport MD from Last 3 Months Surgical History Surgery Date Site/Laterality Comments TOTAL HIP ARTHROPLASTY 08/03/2017 Right TOTAL HIP ARTHROPLASTY 04/07/2017 Left TONSILLECTOMY TUBAL LIGATION CARDIAC CATHETERIZATION 03/19/2025 N/A Procedure: LEFT HEART CATHETERIZATION WITH CORONARY ANGIOGRAPHY AND WITH OR WITHOUT LEFT VENTRICULOGRAM [id number]; Surgeon: Luana Davenport MD; Location: [facility]; Service: Cardiovascular; Laterality: N/A; Medical devices from this surgery are in the Medical Devices section. Medical History Medical History Date Comments Hypercholesteremia Hypertension Diabetes mellitus (HCC) Arthritis Obesity Thyroid disease CHF (congestive heart failure) (HCC) Chronic kidney disease Cardiovascular stress test abnormal Chest pressure Hypothyroidism Type 2 diabetes mellitus (HCC) Family History Medical History Relation Name Comments No Known Problems Father COPD Mother [place] Emphysema Mother [place] Emphysema Sister Relation Name Status Comments Father Mother [place] Sister Social History Tobacco Use Types Packs/Day Years Used Date Smoking Tobacco: Every Day Cigarettes 0.5 5.5 Started: 2019 Smokeless Tobacco: Never Tobacco Cessation:Ready [...] on file 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 Gender Identity Not on file Sexual Orientation [...] 08/13/2019, 03/2018 Medical Devices Implanted Type Area Controls Project Engineer Device Identifier Shelf Expiration Date Model / Serial / Lot [email or web address] Device Closure Vascade Od5 Fr Femoral Artery [id number] - [id number] Implanted:Qty: 1 on 03/19/2025 by Luana Davenport MD at [facility] [employer] 09/17/2026 [id number] / / [id number] Procedures Procedure Name Priority Date/Time Associated Diagnosis Comments LEFT HEART CATHETERIZATION WITH CORONARY ANGIOGRAPHY AND WITH AND WITHOUT LEFT VENTRICULOGRAM Routine 03/19/2025 10:11 AM CDT Cardiovascular stress test abnormal MODERATE SEDATION FIRST 15MIN 5+ YEAR [address] 03/19/2025 9:20 AM CDT Cardiovascular stress test abnormal MODERATE SEDATION SAME MD VIEIRA ADDNikki 15 MIN [address] 03/19/2025 9:20 AM CDT Cardiovascular stress test [...] CDT Other chest pain ELECTROCARDIOGRAM REPORT Routine 025 1:44 PM CDT Chronic diastolic heart failure (HCC) Other chest pain from Last 3 Months Results * LEFT HEART CATHETERIZATION WITH CORONARY ANGIOGRAPHY AND WITH AND WITHOUT LEFT VENTRICULOGRAM (03/19/2025 10:11 AM CDT) Anatomical Region Laterality Modality X-Ray Angiograph y Narrative 03/19/2025 10:32 AM CDT CARDIAC CATHETERIZATION REPORT Jeanna Garcia IP ENCOUNTER: @CSN@ Date of Procedure: 03/19/2025 BIRTHDATE: 1955 SLAG DUMPER: Luana Davenport MD PREPROCEDURE DIAGNOSES: This 69-year-old [...] Right common femoral arterial angiogram. Deployment 5 Taiwanese Vascade closure device. FINDINGS: Left main free [...] consent patient was brought into the laborer starch factory where she was draped and prepped in the usual manner. Moderate sedation was given and the right groin infiltrated using 1% lidocaine. Five Taiwanese sheath was obtained using micropuncture needle and modified Seldinger technique. Selective left coronary angiogram was done using JL4 catheter with the tip of the catheter placed in the left main coronary artery. Selective right coronary angiogram was done using JR4 catheter with the tip of the catheter placed in the right coronary artery. After that 5 Taiwanese pigtail catheter was advanced across aortic valve into the left ventricular with measurement of LVEDP and measure gradient across aortic valve. Right common femoral arterial angiogram was done and deployed 5 Taiwanese Vascade closure device. Access site: Right common femoral artery Hemostasis: 5 Taiwanese Vascade closure device. CONCLUSIONS Minimal irregularities. 30% [...] Davenport MD LAB BLOOD ORDERABLES Final Result [facility] [address] [place] [address] * Differential, auto (03/19/2025 8:17 AM CDT) Neutrophil abs 5.44 1.50 - 6.50 K/cumm Imm gran abs 0.02 0.00 - 0.10 K/cumm [facility] CH Lymphocyte abs 1.81 0.80 - 3.30 K/cumm [facility] Monocyte abs 0.35 0.20 - 0.80 K/cumm [facility] Eosinophil abs 0.10 0.00 - 0.50 K/cumm [facility] Basophil abs 0.05 0.00 - 0.10 K/cumm [facility] Neutrophil pct 70.0 % [facility] Comment: Interpretive Data Percent cell count reference ranges are not reported, since discordance with absolute values may lead to misinterpretation of CBC data. Current Interpretive Data was last revised on 2018. Imm gran pct 0.3 % [facility] Comment: Interpretive Data Percent cell count reference ranges are not reported, since discordance with absolute values may lead to misinterpretation of CBC data. Current Interpretive Data was last revised on 2018. Lymphocyte pct 23.3 % [facility] Comment: Interpretive Data Percent cell count reference ranges are not reported, since discordance with absolute values may lead to misinterpretation of CBC data. Current Interpretive Data was last revised on 2018. Monocyte pct 4.5 % [facility] Comment: Interpretive Data Percent cell count reference ranges are not reported, since discordance with absolute values may lead to misinterpretation of CBC data. Current Interpretive Data was last revised on 2018. Eosinophil pct 1.3 % [facility] Comment: Interpretive Data Percent cell count reference ranges are not reported, since discordance with absolute values may lead to misinterpretation of CBC data. Current Interpretive Data was last revised on 2018. Basophil pct 0.6 % [facility] Comment: Interpretive Data Percent cell count reference ranges are not reported, since discordance with absolute values may lead to misinterpretation of CBC data. Current Interpretive Data was last revised on 2018. Blood 03/19/2025 8:17 AM CDT 03/19/2025 8:37 AM CDT us Luana Davenport MD LAB BLOOD ORDERABLES Final Result [facility] [address] Department [place] [address] * (ABNORMAL) CBC with auto differential (03/19/2025 8:17 AM CDT) WBC 7.77 3.80 - 9.90 K/cumm Hgb 13.9 11.9 - 15.5 g/dL [facility] Hct 41.7 35.6 - 45.5 % [facility] Plt 309 150 - 400 K/cumm [facility] MPV 9.1 9.1 - 12.3 fL [facility] RBC 4.71 3.90 - 5.20 M/cumm [facility] MCV 88.5 81.3 - 96.4 fL [facility] MCH 29.5 27.1 - 33.3 pg [facility] MCHC 33.3 32.3 - 35.7 g/dL [facility] RDW CV 14.8 11.1 - 14.9 % [facility] RDW SD 48.2(H) 35.7 - 48.1 fL [facility] NRBC abs 0.00 0.00 - 0.01 K/cumm [facility] Blood 03/19/2025 8:17 AM CDT 03/19/2025 8:37 AM CDT [address]ative [facility] - 03/19/2025 8:41 AM CDT If most recent labs were drawn prior to 4 AM, draw only prior to initiating procedure. Luana Davenport MD LAB BLOOD ORDERABLES Final Result Performing Organization Address City/[facility]/ZIP Co de Phone Number [facility] [address] Department [place] [address] * (ABNORMAL) Basic metabolic panel (03/19/2025 8:17 AM CDT) Pathologist [facility] Sodium 139 135 - 145 mmol/L Potassium, pl 4.2 3.3 - 4.9 mmol/L [facility] Chloride 102 97 - 110 mmol/L [facility] CO2 23 22 - 32 mmol/L [facility] Anion gap 14 2 - 15 mmol/L [facility] BUN 21 6 - 25 mg/dL [facility] Creatinine 1.35(H) 0.60 - 1.10 mg/dL [facility] Glucose 116 70 - 199 mg/dL [facility] Comment: Interpretive Data Fasting glucose >/= 126 [...] 2022. Calcium 9.3 8.5 - 10.3 mg/dL [facility] Blood 03/19/2025 8:17 AM CDT 03/19/2025 8:37 AM CDT Luana Davenport MD LAB BLOOD ORDERABLES Final Result Performing Organization Address City/[facility]/ZIP Co de Phone Number [facility] [address] Department [place] [address] * POCT glucose (03/19/2025 7:49 AM CDT) Glucose, POC 119 70 - 199 mg/dL POC Performer [id number] [facility]ODRIG[facility] Blood 03/19/2025 7:49 AM CDT 03/19/2025 7:49 AM CDT us Luaan Davenport MD LAB POCT ORDERABLES - DEVICE Final Result [facility] [address] Department [place] [address] * NM MPI SPECT (Rest and/or Stress) Multiple Studies (03/03/2025 9:07 AM CDT) Anatomical Region Laterality Modality Body N/A Nuclear Medicine 03/03/2025 8:23 AM CDT Narrative 03/04/2025 8:08 AM CDT [facility] Cardiology [address] [facility] [address], [place] [address] [address] [facility] [address], [place] [address] P:[phone] P:[phone] MPI Imaging Report Patient Name: JEANNA GARCIA S : 1955 Study Date: 03/03/2025 8:23:54 AM Gender: F Tech: CON[facility] Location: [place] Ref Provider: LUANA DAVENPORT Height(Cm): 167.6 BSA: Weight(Kg): 88 BMI: 31.33 Order Provider: LUANA DAVENPORT PHYSICIAN: Referring Physician: Dr. Joshi. HCG Physician: Luana Davenport M.D., Elyssa Interpreting Physician: Benson Barbour M.D.,Elyssa Stress Supervision: Benson Barbour M.D.,Elyssa PROCEDURES: Pharmacologic SPECT Report: Myocardial perfusion imaging [...] ischemia. Electronically Signed By: Benson Barbour MD, [facility] 03/04/2025 7:20:44 AM CDT Electronically Signed By: Benson Barbour MD, [facility] 03/04/2025 7:20:44 AM CDT Procedure Note Benson Barbour MD - 03/04/2025 [facility] Cardiology [address], [place] [address] [address], [place] [address] P:[phone] P:[phone] MPI Imaging Report Patient Name: JEANNA GARCIA S : 1955 Study Date: 03/03/2025 8:23:54 AM Gender: F [facility] Location: [facility] Provider: LUANA DAVENPORT Height(Cm): 167.6 BSA: [...] isischemia. Electronically Signed By: Benson Barbour MD, [facility] 03/04/2025 7:20:44 AM CDT Electronically Signed By: Benson Barbour MD, [facility] 03/04/2025 7:20:44 AM CDT Luana Davenport MD IMG NM PROCEDURES Fi nal Result * Electrocardiogram Report (02/24/2025 1:44 PM CDT) us Luana Davenport MD ECG ORDERABLES Raine l Result from Last 3 Months Insurance [facility] MEDICARE [facility] Address: [address] [address] [place] [address] [facility] MEDICARE [facility] Address: [address] [address] [place] [address] Care Teams Garden Labourer Relationship Specialty Start Date End Date Melody Joshi DO PCP - General Family Medicine 12/23/21
--- OUTSIDE RECORDS SUMMARY | 2025-04-23 11:11 | XMS_ITS | Encounter Summary ---
Author Organization [facility] Address [address] [place] [address] Care Team Providers Care Lab Clerk Name Role Phone Melody Joshi DO Primary Care Provider +1- [phone] Reason for Referral * Radiology Services (Routine) - Closed Specialty Diagnoses / Procedures Referred By Contac t Referred To Contact Diagnoses Plasma cell disorder Procedures XR BONE SURVEY COMPLETE Darrion Manning MD [address] [facility] [employer] [address] [place] [address] Phone: tel: fax: [facility] [address] [place] [address] Phone: tel: fax: Referral ID Status Reason Start Date Expiration Date V isits Requested Visits Authorized [id number] Closed [facility] CTS 04/22/2025 05/23/2026 1 1 Reason for Visit * Reason Comments Follow Up Encounter Details Date Type Department Care Team (Late st Contact Info) Description 04/22/2025 8:30 AM CDT Office Visit [facility] Oncology and Hematology - [place] [address] [place] [address] [facility] [address] [place] [address] Darrion Manning MD [address] [id number] [address] [place] [address] Plasma cell disorder (Primary Dx) Social History Tobacco Use Types Packs/Day Years Used Date Smoking Tobacco: Every Day Cigarettes 1 4 Started: 05/06/2021 Alcohol Use Standard Drinks/Week Comments Yes 0 (1 standard drink = 0.6 oz pur e alcohol) socially Comments Unknown Sex and Gender Information Value Date Recorded Sex Assigned at Not on file 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 Gender Identity Not on file Sexual Orientation Not on file documented as of this encounter Last Filed Vital Signs Vital Sign Reading Time Taken Comments Blood Pressure 138/66 04/22/2025 8:28 AM CDT Pulse 60 04/22/2025 8:28 AM CDT Temperature 36.2 C (97.2 F) 04/22/2025 8:28 AM CDT Respiratory Rate 15 04/22/2025 8:28 AM CDT Oxygen Saturation 96% 04/22/2025 8:2 8 AM CDT Inhaled Oxygen Concentration - - Weight 88.4 kg (194 lb 12.8 oz) 04/22/2025 8:28 AM CDT Pt verbally stated that this is the correct weight Height - - Body Mass Index 31.44 05/06/2024 10:17 AM CDT documented in this encounter Progress Notes * Darrion Manning MD - 04/22/2025 9:04 AM CDT HEMATOLOGY / ONCOLOGY PROGRESS NOTE Patient Identification: Name: Suyapa Garcia Age: 69 y.o. Sex: female : 1955 DIAGNOSIS Hypercoagulable state with bilateral lower extremity DVT Lytic bone lesions CURRENT TREATMENT TREATMENT HISTORY Eliquis 5 mg twice a day started April 05, 2024. Discontinued in August 2024 with resolution of DVT. SUBJECTIVE Patient came into the office for follow-up visit. She denies any leg pain and chest pain. Denies any leg swelling. Patient had CT scan chest done due to shortness of breath on February 24 that showed noevidence of pulmonary embolism but there was hypodense lesion in L2 which may be metastatic. There was precarinal lymph node 1.7 cm and atrophic right kidney. There was a sclerotic lesion in the right humerus as well. 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 She is to have injections in the back at L4-L5 level due to back pain. She still have back pain and has been dealing with balance issues. She is also hasneuropathy involving bilateral lower extremity. Denies any chest pain. She has gained almost 20 pound weight. No other new complaints. Review of system Constitutional: Patient did not mention fevers, sweats, fatigue, malaise, almost 20 pound weight gain HEENT: Patient did not mention sinus congestion, hearing or vision problems Respiratory: Patient did not mention cough, dyspnea, wheeze Cardiovascular: Patient did not mention chest pain, exertional chest pressure/discomfort, nausea, syncope, shortness of breath GI: Patient did not mention constipation, diarrhea, dsyphagia, reflux symptoms, vomiting, melena : Patient did not mention dysuria, frequency, incontinence, urgency Integumentary system: no lymphadenopathy, sweats, flushing Musculoskeletal: Patient not mention: myalgia, arthralgia, complain of back pain Neurological: Patient did not mention blurry or disturbed vision, peripheral neuropathy involving feet Skin: No lumps, bumps or rashes. 12 point review of system was reviewed Objective: Vital signs in last 24 hours: As per nursing note Exam: Lungs are clear to auscultation bilaterally Cardiovascular regular rate rhythm no murmurs Abdomen soft nontender nondistended bowel sounds are positive Extremities no edema PATH LABS @IMAGEIMP@ Assessment: Plan: There are no active problems to display for this patient. L2 lytic lesion. Patient is a pleasant 69-year-old female who had CT scan chest done due to shortness of breath initially on February 24 that showed no evidence of pulmonary embolism but there was hypodense lesion in L2 which may be metastatic. There was precarinal lymph node 1.7 cm and atrophic rightkidney. There was a sclerotic lesion in the right humerus as well. 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 I will order the workup for multiple myeloma including serum protein electrophoresis with immunofixation, quantitative immunoglobulin and serum free light chain studies. I will order bone survey as well. Follow-up phone visit in 2 weeks. History of bilateral lower extremity DVT after gastric surgery and immobilization diagnosed on April 05, 2024. Further Doppler study done in August 2024 showed resolution of DVT. She discontinued Eliquis at that time. Hypercoagulable workup was ordered but patient did not perform as she thought her blood clot was totally provoked. She is totally asymptomatic at this time and no further workup is needed at this time. 04/22/2025 Darrion Manning MD documented in this encounter Plan of Treatment Upcoming Encounters Date Type Department Care Team (Late st Contact Info) Description 05/06/2025 4:30 PM CDT Telephone Check Up [facility] Oncology and Hematology [facility] [address] [facility] [address] [place] [address] Darrion Manning MD [address] [facility] [address] [place] [address] Scheduled Orders Name Type Priority Associated Diagnoses Orde r Schedule CBC WITH DIFFERENTIAL Lab Stat Plasma cell disorder Expected: 04/22/2025, Expires: 04/22/2026 COMPREHENSIVE METABOLIC PANEL Lab Stat Plasma cell disorder Expected: 04/22/2025, Expires: 04/22/2026 IMMUNOGLOBULINS IGG IGA IGM Lab Routine Plasma cell disorder Expected: 04/22/2025, Expires: 04/22/2026 KAPPA/LAMBDA, FREE LIGHT CHAINS Lab Routine Plasma cell disorder Expected: 04/22/2025, Expires: 04/22/2026 PROTEIN ELECTROPHORESIS W/REFLEX,SERUM Lab Routine Plasma cell disorder Expected: 04/22/2025, Expires: 04/22/2026 XR BONE SURVEY COMPLETE Imaging Routine Plasma cell disorder 1 Occurrences starting 04/22/2025 until 04/22/2026 documented as of this encounter Visit Diagnoses Diagnosis Plasma cell disorder- Primary Other specified disease of white blood cells documented in this encounter Care Teams Lab Clerk Relationship Specialty Start Date End Date Melody Joshi DO [address] [facility] [address] [place] [address] PCP - General Family Practice 04/09/24 documented as of this encounter
--- OUTSIDE RECORDS SUMMARY | 2025-04-23 11:11 | XMS_ITS | Clinical Summary ---
Author Organization [facility] Address [address] [place] [address] Care Team Providers Care High Density Press Laborer Name Role Phone Melody Joshi DO Primary Care Provider +1- [phone] Allergies Active Allergy Reactions Criticality Noted Date Comments Lisinopril Anaphylaxis,Angioedema High 03/12/2024 Medications EPINEPHrine (EpiPen) 0.3 mg/0.3 mL Auto-Injector Inject 0.3 mg by subcutaneous injection one time only. 04/02/20 24 Active levothyroxine 25 mcg tablet Take 25 mcg by mouth daily. 03/14/20 24 Active aspirin (ECOTRIN EC) 81 mg Tablet, Delayed Release (E.C.) Take 81 mg by mouth daily. Active busPIRone (BUSPAR) 7.5 mg Tablet Take 7.5 mg by mouth 2 times daily. 03/06/20 25 Active cloNIDine HCL (CATAPRES) 0.2 mg tablet Take 0.2 mg by mouth 2 times daily. Active doxazosin (CARDURA) 1 mg tablet Take 1 mg by mouth late in the day. Active hydrALAZINE (APRESOLINE) 100 mg Tablet tablet Take 100 mg by mouth 2 times daily. 03/27/20 25 026 Active hydroCHLOROthi azide 25 mg tablet Take 25 mg by mouth daily in the morning. Active metoprolol tartrate (LOPRESSOR) 25 mg tablet Take 12.5 mg by mouth daily. 025 Discontinu ed(Alterna te therapy prescribed ) apixaban (Eliquis) 5 mg tablet Take 1 Tablet (5 mg) by mouth 2 times daily. 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 Gender Identity Not on file Sexual [...] that this is the correct weight Height 167.6 cm (5' 6) 05/06/2024 10:1 7 AM CDT Body Mass Index 31.44 05/06/2024 10:17 AM CDT Plan of Treatment Upcoming Encounters Date Type Department Care Team (Late st Contact Info) Description 05/06/2025 4:30 PM CDT Telephone Check Up [facility] Oncology and Hematology - [place] [address] [facility] [address] [place] [address] Darrion Manning MD [address] [facility] [address] [place] [address] Health Maintenance Due Date Last Done Comments [...] OSTEOPOROSIS SCREENING 2018 INFLUENZA VACCINE (#1) 2024 [place] Prev entative Visit/Annual Wellness Visit 11/06/2024 RSV VACCINE (60+ or ) (1 - 1-dose 75+ series) 2028 Insurance [facility] Address: [address] [address] Care Teams High Density Press Laborer Relationship Specialty Start Date End Date Melody Joshi DO [address] [facility] [address] [place] [phone] PCP - General Family Practice 04/09/24
--- OUTSIDE RECORDS SUMMARY | 2025-04-23 11:11 | XMS_ITS | Referral Summary ---
Author Organization [facility] Address [address] [place] [address] Care Team Providers Care Direct Chill Casting Operator Name Role Phone Melody Joshi DO Primary Care Provider +1- [phone] Encounters Date Type Department Care Team Description 03/27/2025 2:00 PM CDT Office Visit [facility] Cardiology [address] [place] [address] [address] [place] [address] Cher Cervantes NP Benign hypertension with chronic kidney disease, stage III (HCC) (Primary Dx); False positive stress test 03/19/2025 10:00 AM CDT - 03/19/2025 11:30 AM CDT Surgery [facility] Cardiac Catheterization Lab [address] [place] [address] Luana Davenport MD LEFT HEART CATHETERIZATION WITH CORONARY ANGIOGRAPHY AND WITH OR WITHOUT LEFT VENTRICULOGRAM [id number] 03/19/2025 7:29 AM CDT - 03/19/2025 1:05 PM CDT Hospital Encounter [facility] Cardiac Catheterization Lab [address] [place] [address] Luana Davenport MD Cardiovascular stress test abnormal Discharge Disposition: Discharge to home or self care 03/11/2025 9:30 AM CDT Office Visit [facility] Cardiology [address] [place] [address] Cher Cervantes NP Cardiovascular stress test abnormal; Uncontrolled hypertension 03/05/2025 Telephone [facility] Cardiology [email or web address] [facility] [address] [place] [address] Luana Davenport MD 03/04/2025 Results Follow-Up [facility] Cardiology [address] [place] [address] [place] [address] Luana Davenport MD NM MPI SPECT (Rest and/or Stress) Multiple Studies 03/04/2025 Telephone [facility] Cardiology [address] [place] [address] [place] [address] Luana Davenport MD 03/03/2025 7:45 AM CDT Ancillary Procedure [place] [address] [place] [address] Other chest pain 02/27/2025 Telephone [place] [address] [place] [address] Luana Davenport MD 02/25/2025 Telephone [facility] Cardiology [address] [place] [address] [place] [address] Luana Davenport MD 02/24/2025 Telephone [facility] Cardiology [address] [place] [address] [place] [address] Luana Davenport MD 02/24/2025 1:00 PM CDT Office Visit [facility] Cardiology [address] [place] [address] [place] [address] Luana Davenport MD Essential hypertension (Primary Dx); Chronic diastolic heart failure (HCC); History of pulmonary embolism; Other chest pain from Last 3 Months Allergies Active Allergy [...] on file Legal Sex 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 [employer] [facility] 09/17/2026 [id number] / / [id number] Procedures Procedure Name Priority Date/Time Associated Diagnosis Comments LEFT HEART CATHETERIZATION WITH CORONARY ANGIOGRAPHY AND WITH AND WITHOUT LEFT VENTRICULOGRAM Routine 03/19/2025 10:11 AM CDT Cardiovascular stress test abnormal MODERATE SEDATION FIRST 15MIN 5+ YEAR [address] 03/19/2025 9:20 AM CDT Cardiovascular stress test abnormal MODERATE SEDATION SAME MD ISHA HINTON 15 MIN [address] 03/19/2025 9:20 AM CDT Cardiovascular stress test [...] @CSN@ Date of Procedure: 03/19/2025 BIRTHDATE: 1955 WIG STYLIST: Luana Davenport MD PREPROCEDURE DIAGNOSES: This 69-year-old [...] Right common femoral arterial angiogram. Deployment 5 Grenadian Vascade closure device. FINDINGS: Left main free [...] informed consent patient was brought into the laboratory manager where she was draped and prepped in the usual manner. Moderate sedation was given and the right groin infiltrated using 1% lidocaine. Five Grenadian sheath was obtained using micropuncture needle and modified Seldinger technique. Selective left coronary angiogram was done using JL4 catheter with the tip of the catheter placed in the left main coronary artery. Selective right coronary angiogram was done using JR4 catheter with the tip of the catheter placed in the right coronary artery. After that 5 Grenadian pigtail catheter was advanced across aortic valve into the left ventricular with measurement of LVEDP and measure gradient across aortic valve. Right common femoral arterial angiogram was done and deployed 5 Grenadian Vascade closure device. Access site: Right common femoral artery Hemostasis: 5 Grenadian Vascade closure device. CONCLUSIONS Minimal irregularities. 30% [...] Davenport MD LAB BLOOD ORDERABLES Final Result [facility] [address] Department [place] [address] * Differential, auto (03/19/2025 8:17 AM CDT) Neutrophil abs 5.44 1.50 - 6.50 K/cumm Imm gran abs 0.02 0.00 - 0.10 K/cumm [facility] Lymphocyte abs 1.81 0.80 - 3.30 K/cumm [facility] Monocyte abs 0.35 0.20 - 0.80 K/cumm [facility] Eosinophil abs 0.10 0.00 - 0.50 K/cumm [facility] Basophil abs 0.05 0.00 - 0.10 K/cumm [facility] Neutrophil pct 70.0 % [facility] Comment: Interpretive Data Percent cell count reference ranges are not reported, since discordance with absolute values may lead to misinterpretation of CBC data. Current Interpretive Data was last revised on 2018. Imm gran pct 0.3 % [facility] Comment: Interpretive Data Percent cell count reference ranges are not reported, since discordance with absolute values may lead to misinterpretation of CBC data. Current Interpretive Data was last revised on 2018. Lymphocyte pct 23.3 % [facility] Comment: Interpretive Data Percent cell count reference ranges are not reported, since discordance with absolute values may lead to misinterpretation of CBC data. Current Interpretive Data was last revised on 2018. Monocyte pct 4.5 % [facility] Comment: Interpretive Data Percent cell count reference ranges are not reported, since discordance with absolute values may lead to misinterpretation of CBC data. Current Interpretive Data was last revised on 2018. Eosinophil pct 1.3 % [facility] Comment: Interpretive Data Percent cell count reference ranges are not reported, since discordance with absolute values may lead to misinterpretation of CBC data. Current Interpretive Data was last revised on 2018. Basophil pct 0.6 % [facility] Comment: Interpretive Data Percent cell count reference ranges are not reported, since discordance with absolute values may lead to misinterpretation of CBC data. Current Interpretive Data was last revised on 2018. Blood 03/19/2025 8:17 AM CDT 03/19/2025 8:37 AM CDT us Luana Davenport MD LAB BLOOD ORDERABLES Final Result [facility] [address] Department [place] [address] * (ABNORMAL) CBC with auto differential (03/19/2025 8:17 AM CDT) WBC 7.77 3.80 - 9.90 K/cumm Hgb 13.9 11.9 - 15.5 g/dL [facility] Hct 41.7 35.6 - 45.5 % [facility] Plt 309 150 - 400 K/cumm [facility] MPV 9.1 9.1 - 12.3 fL [facility] RBC 4.71 3.90 - 5.20 M/cumm [facility] MCV 88.5 81.3 - 96.4 fL [facility] MCH 29.5 27.1 - 33.3 pg [facility] MCHC 33.3 32.3 - 35.7 g/dL [facility] RDW CV 14.8 11.1 - 14.9 % [facility] RDW SD 48.2(H) 35.7 - 48.1 fL [facility] NRBC abs 0.00 0.00 - 0.01 K/cumm [facility] Blood 03/19/2025 8:17 AM CDT 03/19/2025 8:37 AM CDT Narrative [facility] - 03/19/2025 8:41 AM CDT If most recent labs were drawn prior to 4 AM, draw only prior to initiating procedure. Luana Davenport MD LAB BLOOD ORDERABLES Final Result Performing Organization Address City/State/[facility] Co de Phone Number [facility] [address] Department [place] [address] * (ABNORMAL) Basic metabolic panel (03/19/2025 8:17 AM CDT) Sodium 139 135 - 145 mmol/L Potassium, pl 4.2 3.3 - 4.9 mmol/L [facility] Chloride 102 97 - 110 mmol/L [facility] CO2 23 22 - 32 mmol/L [facility] Anion gap 14 2 - 15 mmol/L [facility] BUN 21 6 - 25 mg/dL [facility] Creatinine 1.35(H) 0.60 - 1.10 mg/dL [facility] Glucose 116 70 - 199 mg/dL [facility] Comment: Interpretive Data Fasting glucose >/= 126 [...] 2022. Calcium 9.3 8.5 - 10.3 mg/dL [facility] Blood 03/19/2025 8:17 AM CDT 03/19/2025 8:37 AM CDT Luana Davenport MD LAB BLOOD ORDERABLES Final Result [facility] [address] Department [place] [address] * POCT glucose (03/19/2025 7:49 AM CDT) Glucose, POC 119 70 - 199 mg/dL POC Performer [phone] [facility] Blood 03/19/2025 7:49 AM CDT 03/19/2025 7:49 AM CDT Luana Davenport MD LAB POCT ORDERABLES - DEVICE Final Result Performing Organization Address [facility] Co de Phone Number [facility] [address] [facility] [employer] [place] [address] * NM MPI SPECT (Rest and/or Stress) Multiple Studies (03/03/2025 9:07 AM CDT) Anatomical Region Laterality Modality Body N/A Nuclear Medicine 03/03/2025 8:23 AM CDT Narrative 03/04/2025 8:08 AM CDT [facility] Cardiology [address] [facility] [address] [id number] [facility] [address] [address] P:[phone] P:[phone] MPI Imaging Report Patient Name: JEANNA GARCIA S : 1955 Study Date: 03/03/2025 8:23:54 AM Gender: F Tech: CONN[facility] Location: [facility] Ref Provider: LUANA DAVENPORT Height(Cm): 167.6 BSA: Weight(Kg): 88 BMI: 31.33 Order Provider: LUANA DAVENPORT PHYSICIAN: Referring Physician: Dr. Joshi. HCG Physician: Luana Davenport M.D., F.A.C.C. Interpreting Physician: Benson Barbour M.D.,Elyssa Stress Supervision: [...] ischemia. Electronically Signed By: Benson Barbour MD, [facility] 03/04/2025 7:20:44 AM CDT Electronically Signed By: Benson Barbour MD, [facility] 03/04/2025 7:20:44 AM CDT Procedure Note Benson Barbour MD - 03/04/2025 [facility] Cardiology [address] [facility] [address], [place] [address] [address] [facility] [address], [place] [address] P:[phone] P:[phone] MPI Imaging Report Patient Name: JEANNA GARCIA S : 1955 Study Date: 03/03/2025 8:23:54 AM Gender: F Tech: [facility] Location: [facility] Provider: LUANA DAVENPORT Height(Cm): 167.6 BSA: [...] isischemia. Electronically Signed By: Benson Barbour MD, [facility] 03/04/2025 7:20:44 AM CDT Electronically Signed By: Benson Barbour MD, [facility] 03/04/2025 7:20:44 AM CDT Luana Davenport MD IMG NM PROCEDURES Fi nal Result * Electrocardiogram Report (02/24/2025 1:44 PM CDT) Luana Davenport MD ECG ORDERABLES Raine l Result from Last 3 Months Insurance [facility] Member Subscriber Plan / Payer (Ef fective 2023-Present) Name:Jeanna Garcia Relation to Subscriber:Self Name:Jeanna Garcia Payer ID:[id number] (NAIC) Type:[facility] Address: [place] [id number] UHC MEDICARE ADVANTAGE Care Teams Direct Chill Casting Operator Relationship Specialty Start Date End Date Melody Joshi DO PCP - General Family Medicine 12/23/21
--- OUTSIDE RECORDS SUMMARY | 2025-04-23 11:11 | XMS_ITS | Encounter Summary ---
Author Organization [facility] Address 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 Oncology and Hematology - [place] [address] [facility] [address] [place] [address] Darrion Manning MD [address] [facility] [address] [place] [address] documented as of this encounter Visit Diagnoses Not on filedocumented in this encounter Care Teams Rheostat Assembler Relationship Specialty Start Date End Date Melody Joshi DO [address] [place] [address] [address] [place] [address] PCP - General Family Practice 04/09/24 documented as of this encounter
--- OUTSIDE RECORDS SUMMARY | 2025-04-23 11:11 | XMS_ITS | Patient Health Record ---
Author Organization [email or web address] [place] ([address]) Address [address] [place] [address] Care Team Providers Care Invoicing Specialist Name Role Phone Melody Joshi Primary Care Provider Tamara Osorio Unavailable [phone] Allergies Allergen (clinical drug ingredient) Drug/Non Drug Allergy documented on EMR Reaction Allergy Type Onset Date Status lisinopril Lisinopril angioedema Drug Allergy Acti ve Reason For Referral No Information Medications Medication [...] W/U Status Risk Notes Problem Food allergy (929090851) Allergy to other foods (Z91.018) Active confirmed Problem Allergy status to other drugs, medicaments and biological substances (Z88.8) Active confirmed Plan Of Treatment No Information Insurance Providers Payer Name Payer Address Payer Phone Subscriber Number Group Number Insured Name Patient Relationship to Insured Coverage Start Date Coverage End Date U[employer] Medicare [address] [address] [place] [address] [id number] Suyapa Garcia Self - patient is the insured 4 Medical (General) History Medical History History ICD Code Hypertension Hyperlipidemia Hypothyroidism Surgical History Surgery Date(Month/Year) bilateral hip replacement 2017 Hospitalization History Reason Date(Month/Year) [facility] [place] 03/10/2024
--- OUTSIDE RECORDS SUMMARY | 2025-04-23 11:11 | XMS_ITS | Encounter Summary ---
Author Organization [facility] Address 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 Gender Identity Not on file Sexual Orientation Not on file documented as of this encounter Plan of Treatment Upcoming Encounters Date Type Department Care Team (Late st Contact Info) Description 05/06/2025 4:30 PM CDT Telephone Check Up [facility] Oncology and Hematology - [place] [address] [facility] [address] [place] [address] Darrion Manning MD [address] [facility] [address] [place] [address] documented as of this encounter Visit Diagnoses Not on filedocumented in this encounter Care Teams Retail Sales Director Relationship Specialty Start Date End Date Melody Joshi DO [address] [place] [address] [address] [place] [address] PCP - General Family Practice 04/09/24 documented as of this encounter
== END 2025-04-23 09:55 | disposition home or self-care (01) ==
PROVIDERS: PCP Family Medicine; Visit Provider Internal Medicine Hematology & Oncology
DX: D72.9 Disorder of white blood cells, unspecified (principal); M89.8X2 Other specified disorders of bone, upper arm; Z96.643 Presence of artificial hip joint, bilateral
CPT/HCPCS: 77075

== ENCOUNTER 2025-06-24 08:24 | Outpatient (CLI) | payer MEDICARE, SELFPAY ==
--- OUTSIDE RECORDS SUMMARY | 2002-08-12 19:00 | XMS_ITS | Continuity of Care Document ---
Author Organization [facility] Address [address] [place] [address] Phone Care Team Providers Care Travel Registered Nurse Icu Name Role Phone Dickinson OD, Kyler Unavailable Unavailable Advance Directives Directive Yes / No Effective Date File Name No Information Encounters Encounter Description Practice Location Reason(s) For Visit Diagnoses Date Provider Providers Copied on Encounter [facility], [address], [place], [place], [id number], [place] tel:[phone] [facility] No Information Aug-0 8-200 2 Dickinson OD Kyler. [address] , [address], [place], [address], [place]. tel:[phone] Family History Family Member Type Diagnosis Age At Onset No Information Payers Payer name Insurance type Covered democrat ID Authoriza tion(s) No Information Social History Type Description Quantity Date Captured Comments Sex Female Smoking Status No Information Chief Complaint And Reason For Visit No Information Reason For Referral Reason For Referral No Information History Of Present Illness Encounter Date Complaint History Of Prese nt Illness No Information Functional Status Date Functional Assessmen t No Information Instructions Date Instruction Additional Infor mation No Information Assessments Type Assessment Date No Information Patient Care Teams Name Effective Dates (start - stop) Status Members No Information
--- OUTSIDE RECORDS SUMMARY | 2024-04-20 16:30 | XMS_ITS ---
Author Organization [facility] [employer] [place] ([address]) Address [address] [place] [address] Care Team Providers Care Recreation Facilities Supervisor Name Role Phone Rosalindeverett Melody Primary Care Provider Unavailabl e Tamara He Unavailable [phone] ZZ-Migration, Provider Unavailable Unavailab le Allergies Allergen (clinical drug ingredient) Drug/Non Drug Allergy documented on EMR Reaction Allergy Type Onset Date Status Lisinopril angioedema Drug Allergy Activ e REASON FOR VISIT [facility] To [facility] Conversion Encounter Medications Medication SIG (Take, Route, Frequency, Duration) Notes Start Date End Date Status Cetirizine HCl 10 MG 1 tab(s) orally BID ; Duration: 30 days 04/02/2024 Active Pepcid 20 MG 1 tab(s) orally 2 times a day; Duration: 30 days 04/02/2024 Active EpiPen 2-Dominguez 0.3 MG/0.3ML as directed intramuscularly once; Duration: 1 dose(s) 04/02/2024 Active EPINEPHRINE AUTO-INJECTOR 0.3 MG DIRECTED INTRAMUSCULARLY ONCE; Duration: 1 DOSE(S) *Please review for potential replacement for e-prescription and drug interaction check* 04/02/2024 Active amLODIPine Besylate 5 MG 1 tab(s) orally once a day Active Metoprolol Tartrate 25 MG 1 tab(s) orally 2 times a day; Duration: 30 day(s) 04/02/2024 Active Levothyroxine Sodium 50 MCG 1 tab(s) orally once a day Active Encounters Encounter Location Date Provider Diagnosis [facility] [address] [address] 04/20/2024 Provider Christina Angioneurotic edema, initial encounter T78.3XXA Assessments Encounter Date Diagnosis (ICD Code) Assessment Notes Treatment Notes Treatment Clinical Notes Section Notes 04/20/2024 Angioneurotic edema, initial encounter (ICD-10 - T78.3XXA) Plan Of Treatment Medication Medication Name Sig Start Date Stop Date Notes Cetirizine HCl 10 MG 1 tab(s) orally BID ; Duration: 30 days 04/02/2024 Pepcid 20 MG 1 tab(s) orally 2 ti mes a day; Duration: 30 days 04/02/2024 EpiPen 2-Dominguez 0.3 MG/0.3ML as directed in tramuscularly once; Duration: 1 dose(s) 04/02/2024 Progress Notes * Suyapa GARCIADOB:1955 (69 yo F)Acc No.[id number]:04/20/2024 Patient: Suyapa VALDEZ Provider: Digna oFrte :1955 A ge:68 Y S ex:Female Date:04/20/2024 Address:[address] [place], [place] [id number] Pcp:Melody Joshi Subjective: * Chief Complaints: * 1 . Multum To Medispan Conversion Encounter. * Medical History: * Medications: T aking amLODIPine Besylate 5 MG Tablet 1 tab(s) orally once a day , Taking Levothyroxine Sodium 50 MCG Tablet 1 tab(s) orally once a day , Taking Metoprolol Tartrate 25 MG Tablet 1 tab(s) orally 2 times a day , Taking EPINEPHRINE AUTO-INJECTOR 0.3 MG KIT DIRECTED INTRAMUSCULARLY ONCE , Notes to Pharmacist: *Please review for potential replacement for e-prescription and drug interaction check* * Allergies: L isinopril: angioedema. Objective: * Vitals: Assessment: * Assessment: 1. A ngioneurotic edema, initial encounter - T78.3XXA (Primary) Plan: * Treatment: * Billing Information: * Visit Code: * Procedure Codes: * Electronic signature of Alonso Vasquez on 06/24/2025 at 08:43 AM CDT Sign off status: Pending * Provider: Digna choudhary Migration Date: 0 04/20/2024 Generated for Samy rivera/Guera/Candelaria on: 0 06/24/2025 08:43 AM CDT
--- OUTSIDE RECORDS SUMMARY | 2025-06-24 08:43 | XMS_ITS | Encounter Summary ---
Author Organization [facility] Healthcare Address [address] [place] [address] Care Team Providers Care Stem Roller Or Crusher Operator Name Role Phone Melody Joshi DO Primary Care Provider +1- [phone] Encounter Details Date Type Department Care Team (Late st Contact Info) Description 02/27/2025 Orders Only [facility] Health Information Management [address] [place] [address] Scanning, Provider Social History Tobacco Use Types Packs/Day Years Used Date Smoking Tobacco: Every Day Cigarettes 0.5 5.6 Started: 2019 Smokeless Tobacco: Never Comments Unknown Sex and Gender Information Value Date Recorded Sex Assigned at Not on file Legal Sex Female 9:04 AM ELECTRICIAN SUBSTATION SUPERVISOR Gender Identity Not on file Sexual Orientation Not on file documented as of this encounter Plan of Treatment Not on file documented as of this encounter Procedures Procedure Name Priority Date/Time Associated Diagnosis Comments SCAN - LABS 02/27/2025 documented in this encounter Results * SCAN - LABS (02/27/2025) us Provider Scanning Final Result documented in this encounter Visit Diagnoses Not on filedocumented in this encounter Care Teams Stem Roller Or Crusher Operator Relationship Specialty Start Date End Date Melody Joshi DO PCP - General Family Medicine 12/23/21 documented as of this encounter
--- OUTSIDE RECORDS SUMMARY | 2025-06-24 08:43 | XMS_ITS | Clinical Summary ---
Author Organization [facility] Address [address] [facility] [place] [address] Care Team Providers Care Yard General Car Supervisor Name Role Phone Melody Joshi DO Primary Care Provider +1- [phone] Allergies Active Allergy Reactions Criticality Noted Date Comments Lisinopril Anaphylaxis,Angioedema High 03/12/2024 Medications EPINEPHrine (EpiPen) 0.3 mg/0.3 mL Auto-Injector Inject 0.3 mg by subcutaneous injection one time only. 4 Active levothyroxine 25 mcg tablet Take 25 mcg by mouth daily. 4 Active aspirin (ECOTRIN EC) 81 mg Tablet, Delayed Release (E.C.) Take 81 mg by mouth daily. Active busPIRone (BUSPAR) 7.5 mg Tablet Take 7.5 mg by mouth 2 times daily. 5 Active cloNIDine HCL (CATAPRES) 0.2 mg tablet Take 0.2 mg by mouth 2 times daily. Active doxazosin (CARDURA) 1 mg tablet Take 1 mg by mouth late in the day. Active hydrALAZINE (APRESOLINE) 100 mg Tablet tablet Take 100 mg by mouth 2 times daily. 5 03/27/20 26 Active hydroCHLOROthia zide 25 mg tablet Take 25 mg by mouth daily in the morning. Active Active Problems No known active problems Encounters Date Type Department Care Team Description 05/21/2025 External Device Data [facility] ABSTRACTION Provider, Abstract 05/20/2025 External Device Data [facility] ABSTRACTION Provider, Abstract 05/14/2025 Orders Only [facility] Oncology and Hematology - [place] [address] [facility] [place] [address] Darrion Manning MD Plasma cell disorder (Primary Dx); Encounter for anticoagulation discussion and counseling 05/06/2025 4:30 PM CDT Telephone Check Up [facility] Oncology and Hematology - [place] [address] [place] [address] Darrion Manning MD 05/05/2025 Orders Only [facility] Oncology and Hematology - [place] [address] [place] [address] Darrion Manning MD 04/28/2025 Orders Only [facility] Oncology and Hematology - [place] [address] [place] [address] Darrion Manning MD 04/22/2025 8:30 AM CDT Office Visit [facility] Oncology and Hematology - [place] [address] [place] [address] Darrion Manning MD Plasma cell disorder (Primary [...] Date Smoking Tobacco: Every Day Cigarettes 1 4.1 Started: 05/06/2021 Alcohol Use Standard Drinks/Week Comments Yes 0 (1 standard drink = 0.6 oz pur e alcohol) socially Comments Unknown Sex and Gender Information Value Date Recorded Sex Assigned at Not on file Legal Sex Female 4:48 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 Gender Identity Not on file Sexual Orientation [...] Care Team (Late st Contact Info) Description 11/10/2025 11:30 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 TEACHER Office Visit [facility] Oncology and Hematology - [place] [address] [facility] [address] [place] [address] Darrion Mannign MD [address] [facility] [address] [place] [address] Health Maintenance Due Date Last [...] 2003 OSTEOPOROSIS SCREENING 2018 INFLUENZA VACCINE (#1) 2025 RSV VACCINE (60+ or ) (1 - 1-dose 75+ series) 2028 Procedures Procedure Name Priority Date/Time Associated Diagnosis Comments XR BONE SURVEY COMPLETE Routine 04/23/2025 9:48 AM CDT CBC WITH DIFFERENTIAL Routine 04/22/2025 1:24 PM CDT from Last 3 Months Results * XR BONE SURVEY COMPLETE (04/23/2025 9:48 AM CDT) Anatomical Region Laterality Modality Other us Darrion Manning MD DIAGNOSTIC IMAGING ORDERABLES F inal Result * CBC WITH DIFFERENTIAL (04/22/2025 1:24 PM CDT) Blood Darrion Manning MD HEMATOLOGY ORDERABLES Final Res ult from Last 3 Months Insurance [place] [id number] Care Teams Yard General Car Supervisor Relationship Specialty Start Date End Date Melody Joshi DO [address] [facility] [address] [place] [address] PCP - General Family Practice 04/09/24
--- OUTSIDE RECORDS SUMMARY | 2025-06-24 08:43 | XMS_ITS | Encounter Summary ---
Author Organization [facility] Healthcare Address [address] [place] [address] Care Team Providers Care Automotive Exhaust Emissions Technician Name Role Phone Melody Joshi DO Primary Care Provider [phone]- [phone] Encounter Details Date Type Department Care Team (Late st Contact Info) Description 12/12/2024 Orders Only [facility] [place] Health Information Management [address] [place] [address] Scanning, Provider Social History Tobacco Use Types Packs/Day Years Used Date Smoking Tobacco: Former Smokeless Tobacco: Never Comments Unknown Sex and Gender Information Value Date Recorded Sex Assigned at Not on file Legal Sex Female 9:04 AM SITE SUPERVISOR Gender Identity Not on file Sexual Orientation Not on file documented as of this encounter Plan of Treatment Not on file documented as of this encounter Procedures Procedure Name Priority Date/Time Associated Diagnosis Comments SCAN - RADIOLOGY/IMAGING 12/12/2024 documented in this encounter Results * SCAN - RADIOLOGY/IMAGING (12/12/2024) Anatomical Region Laterality Modality Other us Provider Scanning Final Result documented in this encounter Visit Diagnoses Not on filedocumented in this encounter Care Teams Automotive Exhaust Emissions Technician Relationship Specialty Start Date End Date Melody Joshi DO PCP - General Family Medicine 12/23/21 documented as of this encounter
--- OUTSIDE RECORDS SUMMARY | 2025-06-24 08:43 | XMS_ITS | Encounter Summary ---
Author Organization [facility] Address [address] [place] [address] Care Team Providers Care Decommissioning Well Site Manager Name Role Phone Melody Joshi DO Primary Care Provider [phone]- [phone] Encounter Details Date Type Department Care Team (Late st Contact Info) Description 03/07/2001 Outpatient Historical [facility] Social History Tobacco Use Types Packs/Day Years Used Date Smoking Tobacco: Never Assessed Comments Unknown Sex and Gender Information Value Date Recorded Sex Assigned at Not on file Legal Sex Female 4:48 AM SILK SCREEN OPERATOR Gender Identity Not on file Sexual Orientation Not on file documented as of this encounter Plan of Treatment Upcoming Encounters Date Type Department Care Team (Late st Contact Info) Description 11/10/2025 11:30 AM SILK SCREEN OPERATOR Office Visit [facility] Oncology and H[facility]ology - [place] [address] [facility] [address] [place] [address] Darrion Manning MD [address] [facility] [address] [place] [address] documented as of this encounter Visit Diagnoses Not on filedocumented in this encounter Care Teams Decommissioning Well Site Manager Relationship Specialty Start Date End Date Melody Joshi DO [address] [facility] [address] [place] [id number] PCP - General Family Practice 04/09/24 documented as of this encounter
--- OUTSIDE RECORDS SUMMARY | 2025-06-24 08:43 | XMS_ITS | Encounter Summary ---
Author Organization [facility] Healthcare Address [address] [place] [address] Care Team Providers Care Service Desk Specialist Name Role Phone Melody Joshi DO Primary Care Provider [phone]- [phone] Encounter Details Date Type Department Care Team (Late st Contact Info) Description 11/20/2024 Orders Only [facility] [place] Health Information Management [address] [place] [address] Scanning, Provider Social History Tobacco Use Types Packs/Day Years Used Date Smoking Tobacco: Former Smokeless Tobacco: Never Comments Unknown Sex and Gender Information Value Date Recorded Sex Assigned at Not on file Legal Sex Female 9:04 AM PERFECT BINDER SETTER Gender Identity Not on file Sexual Orientation Not on file documented as of this encounter Plan of Treatment Not on file documented as of this encounter Procedures Procedure Name Priority Date/Time Associated Diagnosis Comments CARDIOLOGY DOCUMENT SCAN 11/20/2024 documented in this encounter Results * Cardiology Document Scan (11/20/2024) Anatomical Region Laterality Modality Other us Provider Scanning CV CARDIAC SERVICES PROCEDURES Final Result documented in this encounter Visit Diagnoses Not on filedocumented in this encounter Care Teams Service Desk Specialist Relationship Specialty Start Date End Date Melody Joshi DO PCP - General Family Medicine 12/23/21 documented as of this encounter
--- OUTSIDE RECORDS SUMMARY | 2025-06-24 08:43 | XMS_ITS | Patient Health Record ---
Author Organization [facility] [employer] [facility] ([address] Address [address] [place] [address] Care Team Providers Care Plc Engineer Name Role Phone Melody Joshi Primary Care Provider Tamara Osorio Unavailable [phone] Allergies Allergen (clinical drug ingredient) Drug/Non Drug Allergy documented on EMR Reaction Allergy Type Onset Date Status lisinopril Lisinopril angioedema Drug Allergy Acti ve Reason For Referral No Information Medications Medication SIG (Take, Route, Frequency, Duration) Notes Start Date End Date Status EPINEPHRINE AUTO-INJECTOR 0.3 MG DIRECTED INTRAMUSCULARLY ONCE; Duration: 1 DOSE(S) *Please review for potential replacement for e-prescription and drug interaction check* 04/02/2024 Active CETIRIZINE 10 mg 1 tab(s) orally BID; Duration: 30 days 04/02/2024 Active AMLODIPINE 5 mg 1 tab(s) orally once a day Active METOPROLOL TARTRATE 25 mg 1 tab(s) orally 2 times a day; Duration: 30 day(s) 04/02/2024 Active Metoprolol Tartrate 25 MG 1 tab(s) orally 2 times a day; Duration: 30 day(s) 04/02/2024 Active LEVOTHYROXINE 50 mcg (0.05 mg) 1 tab(s) orally once a day Active Levothyroxine Sodium 50 MCG 1 tab(s) orally once a day Active PEPCID 20 mg 1 tab(s) orally 2 times a day; Duration: 30 days 04/02/2024 Active amLODIPine Besylate 5 MG 1 tab(s) orally once a day Active Cetirizine HCl 10 MG 1 tab(s) orally BID ; Duration: 30 days 04/02/2024 Active Pepcid 20 MG 1 tab(s) orally 2 times a day; Duration: 30 days 04/02/2024 Active EPIPEN 2-DOMINGUEZ 0.3 mg as directed intramuscularly once; Duration: 1 dose(s) 04/02/2024 Active EpiPen 2-Dominguez 0.3 MG/0.3ML as directed intramuscularly once; Duration: 1 dose(s) 04/02/2024 Active Social History Tobacco Use: Social History Observation Description Date Details (start date - stop date) Current Smoker NA - NA Tobacco Control (Standard) Question Answer Notes Tobacco use: Current smoker Problems Problem Type SNOMED Code ICD Code Onset Dates Problem Status W/U Status Risk Notes Problem Food allergy (519993725) Allergy to other foods (Z91.018) Active confirmed Problem Allergy status to other drugs, medicaments and biological substances (Z88.8) Active confirmed Plan Of Treatment No Information Insurance Providers Payer Name Payer Address Payer Phone Subscriber Number Group Number Insured Name Patient Relationship to Insured Coverage Start Date Coverage End Date UHC Medicare [address] [address] [place] [address] [id number] Suyapa Garcia Self - patient is the insured 4 Medical (General) History Medical History History ICD Code Hypertension Hyperlipidemia Hypothyroidism Surgical History Surgery Date(Month/Year) bilateral hip replacement 2017 Hospitalization History Reason Date(Month/Year) [facility] [place] 03/10/2024
--- OUTSIDE RECORDS SUMMARY | 2025-06-24 08:43 | XMS_ITS | Clinical Summary ---
Author Organization [facility] Address [address] [place] [address] Care Team Providers Care Business Segment Manager Name Role Phone RosalindamyMelody king Primary Care Provider +1- [phone] Allergies Active Allergy Reactions Criticality Noted Date Comments Lisinopril Anaphylaxis,Angioede maDelma welling High 03/10/2024 Other Anaphylaxis High 03/12/2024 Chicken of the kovacs mushroom, Laetiporus spp. Medications levothyroxine (SYNTHROID, LEVOTHROID) 50 mcg tablet 8 Active aspirin 81 mg enteric coated tablet Take 1 tablet (81 mg total) by mouth daily Active busPIRone (BUSPAR) 7.5 mg tablet Take 1 tablet (7.5 mg total) by mouth 2 (two) times a day 5 Active doxazosin (CARDURA) 1 mg tablet Take 1 tablet (1 mg total) by mouth nightly 30 tablet 11 5 03/19/20 26 Active cloNIDine (CATAPRES) 0.2 mg tabletIndications :Benign hypertension with chronic kidney disease, stage III (HCC) Take 1 tablet (0.2 mg total) by mouth 2 (two) times a day 180 tablet 3 5 Active hydroCHLOROthiazi de (HYDRODIURIL) 25 mg tabletIndications :Benign hypertension with chronic kidney disease, stage III (HCC) Take 1 tablet (25 mg total) by mouth every morning 90 tablet 3 5 Active ALPRAZolam (XANAX) 0.25 mg tablet Take by mouth 2 (two) times a day as needed 5 06/06/20 25 Discontinu ed(Therapy completed) sertraline (ZOLOFT) 25 mg tablet Take 1 tablet (25 mg total) by mouth daily 5 06/06/20 25 Discontinu ed(Therapy completed) hydrALAZINE (APRESOLINE) 100 mg tabletIndications :hypertension Take 1 tablet (100 mg total) by mouth 2 (two) times a day 180 tablet 3 5 06/06/20 25 Discontinu ed(Therapy completed) Active Problems Problem Noted Date Diagnosed Date Cardiovascular stress test abnormal 03/04/2025 Other chest pain 02/24/2025 Essential hypertension 01/13/2025 Chronic diastolic heart failure 01/13/2025 History of pulmonary embolism 01/13/2025 Encounters Date Type Department Care Team Description 06/06/2025 2:30 PM CDT Office Visit [facility] [address] [facility] [address] [place] [phone] Cher Cervantes NP Benign hypertension with chronic kidney disease, stage III (HCC) (Primary Dx) 03/27/2025 2:00 PM CDT Office Visit [facility] Cardiology [address] [place] [phone] Cher Cervantes NP Benign hypertension with chronic kidney disease, stage III (HCC) (Primary Dx); False positive stress test from Last 3 Months Surgical History Surgery Date Site/Laterality Comments TOTAL HIP ARTHROPLASTY 08/03/2017 Right TOTAL HIP ARTHROPLASTY 04/07/2017 Left TONSILLECTOMY TUBAL LIGATION CARDIAC CATHETERIZATION 03/19/2025 N/A Procedure: LEFT HEART CATHETERIZATION WITH CORONARY ANGIOGRAPHY AND WITH OR WITHOUT LEFT VENTRICULOGRAM [id number]; Surgeon: Nadya Davenport MD; Location: CARDIAC IP LITIGATION [facility]GAL; Service: Cardiovascular; Laterality: N/A; Medical devices from this surgery are in the Medical Devices section. JOINT REPLACEMENT 2017 CATARACT EXTRACTION 2023 Medical History Medical History Date Comments Hypercholesteremia Hypertension Diabetes mellitus (HCC) Arthritis Obesity Thyroid disease CHF (congestive heart failure) (HCC) Chronic kidney disease Cardiovascular stress test abnormal Chest pressure Hypothyroidism Type 2 diabetes mellitus Anxiety 12-07-2024 Family History Medical History Relation Name Comments Heart attack Father Jam Hypertension Father Jam Asthma Mother [place] COPD Mother Laurel Emphysema Mother [place] Emphysema Sister Relation Name Status Comments Father Jam Mother Laurel Sister Social History Tobacco Use Types Packs/Day Years Used Date Smoking Tobacco: Former Cigarettes 0.6 6.8 S tarted: 2019 Smokeless Tobacco: Never AUDIT-C Answer Date Recorded Q1: How often [...] on file Legal Sex Female 9:04 AM MAMMAL CONTROL AGENT Gender Identity Not on file Sexual Orientation Not on file Obstetrics History Last Filed Vital Signs Vital Sign Reading Time Taken Comments Blood Pressure 152/60 06/06/2025 2:29 PM CDT Pulse 55 06/06/2025 2:29 PM CDT Temperature 36.6 C (97.9 F) 03/19/2025 7:49 AM CDT Respiratory Rate 17 03/19/2025 7:49 AM CDT Oxygen Saturation 96% 06/06/2025 2:29 PM CDT Inhaled Oxygen Concentration - - Weight 89.4 kg (197 lb) 06/06/2025 2:29 PM CDT Height 167.6 cm (5' 6) 06/06/2025 2:29 PM CDT Body Mass Index 31.8 06/06/2025 2:29 PM CDT Plan of Treatment Health Maintenance Due Date Last Done Comments Breast Cancer Screening-Mammogram 1955 Colon Cancer Screening-Colonoscopy 1955 Depression Screening 1955 Hepatitis C Screening 1955 Osteoporosis Screening-Bone Density Scan 1955 Well Visit 65+ 2018 Covid-19 Vaccine (4 - 2023-2 5 season) 2024 09/10/2021, 01/19/2021, 12/29/2020 Influenza Vaccine (#1) 2025 , 08/13/2019, 08/10/2018, Additional history exists DTaP/Tdap/Td Vaccine (3 - Td or Tdap) 12/18/2025 12/18/2015, 10/14/2005, 07/05/2000, Additional history exists Fall Risk Assessment 03/19/2026 03/19/2025 Hepatitis B Screening Completed 04/22/1992 , 11/20/1991, 10/21/1991 Zoster Vaccine Completed 06/08/2018, 02/2018, 07/15/2013 Pneumococcal vaccine 65+ Completed 08/13/2019, 03/2018 Medical Devices Implanted Type Area Aoc Plans Intelligence Officer Device Identifier Shelf Expiration Date Model / Serial / Lot [employer] [facility] Device Closure Vascade Od5 Fr Femoral Artery [id number] - [id number] Implanted:Qty: 1 on 03/19/2025 by Nadya Davenport MD at [facility] [employer] [facility] 09/17/2026 [id number] / / [id number] Insurance UHC MEDICARE ADVANTAGE [facility] MED[facility] Address: [facility] [address] [place] [address] UHC MEDICARE ADVANTAGE Care Teams Business Segment Manager Relationship Specialty Start Date End Date Melody Joshi DO PCP - General Family Medicine 12/23/21
--- OUTSIDE RECORDS SUMMARY | 2025-06-24 08:43 | XMS_ITS | Clinical Summary ---
Author Organization [facility] Address [address] [facility] [place] [address] Care Team Providers Care Procedural Nurse Name Role Phone Hever Mendez MD Primary Care Provider [phone] Source Comments [facility],non-owned Affiliates and Associated Physician Practices is amultiple site organization consisting of ambulatory clinics and hospital sitesin [place], [place], [place] and [place]. This disclosure is being madepursuant to the Care Everywhere program and may not contain all information available regarding this patient. Last updated 18.[facility] Social History Tobacco Use Types Packs/Day Years Used Date Smoking Tobacco: Never Assessed Comments Unknown Sex and Gender Information Value Date Recorded Sex Assigned at Not on file Legal Sex Female 7:00 AM HORTICULTURE SUPERINTENDENT Gender Identity Not on file Sexual Orientation [...] season) 2024 DEPRESSION SCREENING 11/06/2024 INFLUENZA VACCINE (#1) 2025 Respiratory Syncytial Virus (RSV) Vaccine Pt: [...] complete this topic Insurance MEDICARE Care Teams Procedural Nurse Relationship Specialty Start Date End Date Hever Mendez MD [address] [place] [id number] PCP - General 01/10/19
--- OUTSIDE RECORDS SUMMARY | 2025-06-24 08:43 | XMS_ITS | Encounter Summary ---
Author Organization [facility] Healthcare Address [address] [place] [address] Care Team Providers Care Innersole Fitter Name Role Phone Melody Joshi DO Primary Care Provider [phone]- [phone] Encounter Details Date Type Department Care Team (Late st Contact Info) Description 02/24/2025 Orders Only [facility] [place] Health Information Management [address] [place] [phone] Scanning, Provider Social History Tobacco Use Types Packs/Day Years Used Date Smoking Tobacco: Every Day Cigarettes 0.5 5.6 Started: 2019 Smokeless Tobacco: Never Comments Unknown Sex and Gender Information Value Date Recorded Sex Assigned at Not on file Legal Sex Female 9:04 AM CONVERTING SUPERVISOR Gender Identity Not on file Sexual Orientation Not on file documented as of this encounter Plan of Treatment Not on file documented as of this encounter Procedures Procedure Name Priority Date/Time Associated Diagnosis Comments SCAN - LABS 02/24/2025 documented in this encounter Results * SCAN - LABS (02/24/2025) us Provider Scanning Final Result documented in this encounter Visit Diagnoses Not on filedocumented in this encounter Care Teams Innersole Fitter Relationship Specialty Start Date End Date Melody Joshi DO PCP - General Family Medicine 12/23/21 documented as of this encounter
--- NOTE | 2025-06-24 09:00 | NEURO_ITS ---
Impression: # Non-diabetic complains of imbalance. No family history of such problems. ? # Axonal sensorimotor neuropathy. # Neurogenic changes, more distally, on needle/ EMG exam ? # Clinical correlation recommended Nerve Conduction Studies ?Stim Site NR Peak (ms) P-T Amp (?V) Site1 Site2 Delta-P (ms) Dist (cm) Nav (m/s) Left Sup Fibular Anti Sensory (Ant Lat Mall)??? NO RESPONSE 14 cm NR 14 cm Ant Lat Mall 16.0 Right Sup Fibular Anti Sensory (Ant Lat Mall)??? NO RESPONSE 14 cm NR 14 cm Ant Lat Mall 16.0 Left Sural Anti Sensory (Lat Mall)??? NO RESPONSE Calf NR Calf Lat Mall 16.0 Right Sural Anti Sensory (Lat Mall)??? NO RESPONSE Calf NR Calf Lat Mall 16.0 ?Stim Site NR Onset (ms) O-P Amp (mV) Site1 Site2 Delta-0 (ms) Dist (cm) Nav (m/s) Left Peroneal Motor (Vastus Med) Ankle ? 4.6 2.7 Popit Ankle 11.3 39.0 35 Popit ? 15.9 2.0 Right Peroneal Motor (Vastus Med) Ankle ? 5.4 0.7 Popit Ankle 9.2 39.0 42 Popit ? 14.6 0.6 Left Tibial Motor (Abd Valdez Brev) Ankle ? 4.9 0.2 Knee Ankle 11.4 39.0 34 Knee ? 16.3 0.1 Right Tibial Motor (Abd Valdez Brev) Ankle ? 5.2 0.2 Knee Ankle 9.7 39.0 40 Knee ? 14.9 0.1 F Wave Studies ?NR F-Lat (ms) L-R F-Lat (ms) Left Peroneal (Mrkrs) (EDB) ? 54.59 Right Peroneal (Mrkrs) (EDB)??? DISPERSED RESPONSE NR Left Tibial (Mrkrs) (Abd Hallucis) ? 54.50 Right Tibial (Mrkrs) (Abd Hallucis)??? DISPERSED RESPONSE NR Electromyography ?Side Muscle Nerve Root Ins Act Fibs Amp Dur Recrt Comment Right AntTibialis Dp Br Fibular L4-5 Nml Nml Decr >12ms Nml Right Gastroc Tibial S1-2 Nml Nml Decr >12ms Nml Right Fibularis Long Sup Br Fibular L5-S1 Nml Nml Nml Nml Nml Right Flex Dig Long Tibial L5-S2 Nml Nml Decr >12ms Nml Right Ext Dig Brev Dp Br Fibular L5, S1 Nml Nml Decr >12ms Nml Right QuadratusFem QuadFemoris L4-5, S1 Nml Nml Nml Nml Nml Left AntTibialis Dp Br Fibular L4-5 Nml Nml Decr >12ms Nml Left Gastroc Tibial S1-2 Nml Nml Decr >12ms Nml Left Fibularis Long Sup Br Fibular L5-S1 Nml Nml Nml Nml Nml Left Flex Dig Long Tibial L5-S2 Nml Nml Decr >12ms Nml Left Ext Dig Brev Dp Br Fibular L5, S1 Nml Nml Decr >12ms Nml Left QuadratusFem QuadFemoris L4-5, S1 Nml Nml Nml Nml Nml
== END 2025-06-24 08:25 | disposition home or self-care (01) ==
PROVIDERS: PCP Family Medicine; Visit Provider Family Medicine
DX: G62.9 Polyneuropathy, unspecified (principal)
CPT/HCPCS: 95886; 95910

== ENCOUNTER 2025-07-29 15:25 | Outpatient (CLI) | payer MEDICARE, SELFPAY ==
--- NOTE | ~2025-07-29 | XR_ITS ---
EXAMINATION: XR knee RT min 4V, 07/29/2025 15:30 CDT HISTORY: Pain in right knee x 5 months, no surg, no inj COMPARISON: No comparisons available. 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 Moderate osteopenia. Moderate to severe tricompartmental degenerative changes. Soft tissues unremarkable. Impression: No acute fracture or malalignment. Reviewed, dictated and finalized at location A. Impression: No acute fracture or malalignment.
== END 2025-07-29 15:26 | disposition home or self-care (01) ==
LOC: GOSHIMG 15:25
PROVIDERS: PCP Family Medicine; Visit Provider Family Medicine
DX: M25.561 Pain in right knee (principal)
CPT/HCPCS: 73564

== ENCOUNTER 2025-09-01 08:00 | Outpatient (RCR) | payer MEDICARE, SELFPAY ==
--- NOTE | 2025-07-22 11:03 | OPREHPOC ---
Outpatient Therapy Plan of Care This is a Multidisciplinary Plan of Care that may contain components documented by all disciplines (PT, OT, and ST.) PT Goal 1 Goal / Goal Update 1*independent with HEP 2* correct use and gait pattern with assistive device Target Visit 8 PT Problem 2 PT Problem #2 Impaired Strength PT Goal 1 Goal / Goal Update increase strength to improve mobility and gait skills 1* bilateral hip extension 4/5 2* L hip abduction 4/5 3* R hip abduction 4+/5 4* pt ambulate with good trunk stability, without lateral trunk motion Target Visit 8 PT Problem 3 PT Problem #3 Impaired Functional Mobility PT Goal 1 Goal / Goal Update 1* 2 minute walking test distance of 450, to improve community mobility 2* pt report NO falls Target Visit 8
--- NOTE | 2025-07-22 11:04 | PTOPEVAL1 ---
Assessment and note entered by Bianka Conrad, PT Evaluation Information Assessment Status Evaluation ICD-10 Condition Codes (PT) Difficulty Walking R26.2,Abnormalities of gait and mobility R26.9,Weakness R53.1 Other ICD-10 Condition Codes ( [id number] ataxia G 62.9 PT) Onset march 2024 Subjective Information gradual decrease in strength and mobility, use cane PRN; no falls; frustrated due to not able to to do things and walk like used to; not as mobile and active as she wants to be; live alone, use cane PRN; independent with all self care, driving, home tasks; have basement laundry with 1 hand rail; goal: get stronger legs, walk better; Reported Pain Level Pain Score 0: Self Report Additional Pain Score Comments pain range of R knee 0-9/10; back pain 0-4/10; Assessment PT Clinical Summary Chelo has the diagnosis of peripheral neuropathy and ataxia, with leg weakness. She has not had any falls and lives alone, using cane PRN. Modified falls efficacy of 50/140. She is going to have the dr check her R knee--? ortho consult for pain. She has multiple medical issues/history: severe peripheral neuropathy bilateral LE, bilateral THR, R knee pain, low back pain, HTN with decreased control and hospitalization due to med reaction. With the evaluation: decreased strength of bilateral hip extension and hip abduction- L weaker than R; unable to stand single leg; poor standing posture with R knee valgus; poor gait pattern with R/L lateral trunk motion, flexion of hips and trunk; 2 minute walking test distance without device 370'; Skilled PT services are indicated for therapeutic exercises to increase LE and trunk strength, gait and balance skills, to improve mobility and stability with gait. Education for HEP and gait pattern. Plan of Care Interventions Neuro Re-education,Patient/Caregiver Education, Therapeutic Activities,Therapeutic Exercise PT Services Indicated Yes Treatment Frequency and 1-2x/wk for 8 visits Duration These treatments will address the objective and functional deficits as defined above. The patient will be advanced safely and appropriately in order for the patient to progress towards his/her prior level of function. Additional exercises will be introduced and as well as a comprehensive home exercise program upon discharge, if needed, ?to ensure carryover of functional gains achieved in the clinic. This treatment plan has been reviewed and agreement upon by the patient.
--- NOTE | 2025-09-01 08:43 | OPREHPOC ---
Outpatient Therapy Plan of Care This is a Multidisciplinary Plan of Care that may contain components documented by all disciplines (PT, OT, and ST.) PT Goal 1 Goal / Goal Update 1*independent with HEP 2* correct use and gait pattern with assistive device 09-01-25 d/c goals met Target Visit 8 Progress Met PT Problem 2 PT Problem #2 Impaired Strength PT Goal 1 Goal / Goal Update increase strength to improve mobility and gait skills 1* bilateral hip extension 4/5 2* L hip abduction 4/5 3* R hip abduction 4+/5 4* pt ambulate with good trunk stability, without lateral trunk motion 09-01-25 d/c goals met Target Visit 8 Progress Met PT Problem 3 PT Problem #3 Impaired Functional Mobility PT Goal 1 Goal / Goal Update 1* 2 minute walking test distance of 450, to improve community mobility 2* pt report NO falls 09-01-25 d/c goal 2 met; #1 improved to 415' Target Visit 8 Progress Partially Met
--- NOTE | 2025-09-01 08:43 | PTOPDC ---
Assessment and note entered by Bianka Conrad, PT Assessment Status Discharge ICD-10 Condition Codes (PT) Difficulty Walking R26.2,Abnormalities of gait and mobility R26.9,Weakness R53.1 Other ICD-10 Condition Codes ( [id number] ataxia G 62.9 PT) Onset march 2024 Subjective Information am stronger--walking outside in yard, doing some yard work, easier on stairs at home; doing the leg exercises at home faithfully; no falls; use the cane when out walking distances- do not use in the home and short distance; have orders for her R knee: discussed and she reports using shoe lift and doing the leg exercises, knee does not really hurt anymore; have an appointment with ortho dr in few weeks; Reported Pain Level Pain Score 0: Self Report Assessment PT Clinical Summary Chelo has received 8 PT sessions. She has a new order from her general medical provider for R knee pain. Her knee pain has decreased with the strengthening exercises and she does not feel that she needs PT for her knee. She does have an appointment with ortho dr in September. With today's assessment: does not report any pain in her R knee; has not had any falls; education completed for HEP and safety with mobility; self assessment with Modified falls 85/140, 39% limitation in activity; increase strength of R and L LE's; 2 minute walking test distance of 415' with and without the cane; gait with the cane in community and for distances, with continued foot slap on L; The goals were achieved, except 2 minute walking test distance. Discharge PT. She is to continue with her HEP and activity as tolerated. Plan of Care PT Services Indicated No
== END 2025-09-01 10:25 | disposition home or self-care (01) ==
LOC: ANHPT 08:00
PROVIDERS: PCP Family Medicine; Visit Provider Psychiatry & Neurology Neurology
DX: G62.9 Polyneuropathy, unspecified (principal); R27.0 Ataxia, unspecified
CPT/HCPCS: 97110; 97112; 97116; 97161; 97530

== ENCOUNTER 2025-09-23 07:21 | Outpatient (CLI) | payer MEDICARE, SELFPAY ==
--- NOTE | ~2025-09-23 | CT_ITS ---
EXAMINATION:CT diagnostic chest wo con DATE: 09/23/2025 07:41 INDICATION: Noncontrast chest CT TECHNIQUE: Computed tomography (CT) of the chest was performed without intravenous contrast. The dose-length product (DLP) was 138.56 mGy-cm. COMPARISON: March 25, 2025 and November 20, 2024 FINDINGS: 5 mm left upper lobe nodule image 59 series 4 stable. 4 x 3 mm left major fissure pleural-based nodule image 63 series 4 also unchanged. IMPRESSION: Small stable left-sided lung nodules compared to November 20, 2024. No gross acute process. RECOMMENDATION: Follow-up chest CT in 12 months to confirm radiographic benignity. Chest CT sooner as clinically appropriate. Reviewed, dictated and finalized at location [facility] IMPRESSION: Small stable left-sided lung nodules compared to November 20, 2024. No gross acute process. RECOMMENDATION: Follow-up chest CT in 12 months to confirm radiographic benigni ty. Chest CT sooner as clinically appropriate.
== END 2025-09-23 07:22 | disposition home or self-care (01) ==
PROVIDERS: PCP Family Medicine; Visit Provider Family Medicine
DX: R91.8 Other nonspecific abnormal finding of lung field (principal)
CPT/HCPCS: 71250